=== PATIENT | male | born 1975 | race Caucasian/White ===

== ENCOUNTER → 2020-06-18 | Outpatient (CLI) | payer OTHER, SELFPAY | END | disposition home or self-care (01) | LOC: LABSPEC 15:27 | PROVIDERS: PCP Family Medicine; Visit Provider Family Medicine | DX: U07.1 COVID-19 (principal) | CPT/HCPCS: 87635; U0003 ==

== ENCOUNTER → 2020-09-26 09:08 | Outpatient (CLI) | payer OTHER, SELFPAY | PROVIDERS: PCP Family Medicine; Referring Provider Family Medicine; Visit Provider Family Medicine | DX: R53.83 Other fatigue (principal) | CPT/HCPCS: 36415; 84403 ==

== ENCOUNTER → 2020-10-10 | Outpatient (CLI) | payer OTHER, SELFPAY | END | disposition home or self-care (01) | LOC: LABSPEC 10:08 | PROVIDERS: PCP Family Medicine; Referring Provider Family Medicine; Visit Provider Family Medicine | DX: R79.89 Other specified abnormal findings of blood chemistry (principal) | CPT/HCPCS: 84403 ==

== ENCOUNTER → 2021-03-27 | Outpatient (CLI) | payer OTHER, SELFPAY ==
[2021-03-27 10:06] LABS: ALB/GLOB Ratio 1.1 RATIO (0.9-2.4); AST(SGOT) 29 U/L (15-37); Alanine Aminotransfer ALT/SGPT 54 U/L (16-61); Albumin, Serum 4.2 g/dL (3.2-5.0); Alkaline Phosphatase 54 U/L (45-117); Anion Gap 3 (5-15); BUN 17 mg/dL (7-18); BUN/Creat Ratio 18.7 RATIO (10-20); Calcium,Total 8.8 mg/dL (8.5-10.1); Chloride 104 mmol/L (98-107); Cholesterol 157 mg/dL (200); Creatinine, Serum 0.91 mg/dL (0.70-1.30); EST Glomerular Filtration Rate 96 mL/min (>60); Est Glom Filt Rate - Afr Amer 116 mL/min (>60); Globulin 3.7 g/dL (2.2-4.2); Glucose 80 mg/dL (74-106); High Density Lipoprotein 48 mg/dL; Potassium 4.4 mmol/L (3.5-5.1); Protein, Total 7.9 g/dL (6.4-8.2); Sodium Level 137 mmol/L (136-145); Triglycerides 117 mg/dL; Very Low Density Lipoprotein 23 mg/dL (5-40)
== END | disposition home or self-care (01) ==
LOC: LABSPEC 09:23
PROVIDERS: PCP Family Medicine; Visit Provider Family Medicine
DX: E78.5 Hyperlipidemia, unspecified (principal); E29.1 Testicular hypofunction
CPT/HCPCS: 80053; 80061; 84403

== ENCOUNTER 2021-09-08 12:24 | Outpatient (CLI) | payer OTHER, SELFPAY | END 2021-09-08 23:59 | disposition home or self-care (01) | LOC: LAB.FUTURE 12:24 | PROVIDERS: PCP Family Medicine; Visit Provider Family Medicine | DX: E29.1 Testicular hypofunction (principal) | CPT/HCPCS: 36415; 84403 ==

== ENCOUNTER → 2022-03-18 | Outpatient (CLI) | payer OTHER, SELFPAY ==
[2022-03-18 12:18] LABS: Anion Gap 1 (5-15); BUN 13 mg/dL (7-18); BUN/Creat Ratio 11.9 RATIO (10-20); Chloride 103 mmol/L (98-107); Creatinine, Serum 1.09 mg/dL (0.70-1.30); EST Glomerular Filtration Rate 77 mL/min (>60); Est Glom Filt Rate - Afr Amer 93 mL/min (>60); Glucose 90 mg/dL (74-106); PSA,Total - Annual Screen 1.62 ng/mL (0.00-4.00); Potassium 4.6 mmol/L (3.5-5.1); Sodium Level 136 mmol/L (136-145)
== END | disposition home or self-care (01) ==
LOC: LAB 11:43
PROVIDERS: PCP Family Medicine; Referring Provider Family Medicine; Visit Provider Family Medicine
DX: Z00.00 Encounter for general adult medical examination without abnormal findings (principal); E29.1 Testicular hypofunction
CPT/HCPCS: 80048; 84153; 84403; G0103

== ENCOUNTER → 2023-03-25 | Outpatient (CLI) | payer OTHER, SELFPAY ==
[2023-03-25 08:42] LABS: Absolute Lymphocyte Count 1.57 X10^3/uL (0.83-4.51); Basophil# 0.05 X10^3/uL; Hematocrit 46.5 % (40-54); Hemoglobin 15.2 g/dL (13.0-16.5); Lymphocyte # 1.57 X10^3/ul (0.83-4.51); Mean Corp Hgb Conc 32.7 g/dL (32-36); Mean Corpuscular Hgb 29.3 pg (27.0-32.0); Mean Corpuscular Volume 89.8 fL (80-94); Mean Platelet Vol. 11.2 fl (6.2-12.0); Monocyte# 0.36 X10^3/uL; Monocyte% 7.1 % (0-10); NRBC Flagged by Analyzer 0 % (0-5); Neutrophil # 2.97 X10^3/uL (2.7-7.7); Neutrophil % 58.7 % (47-70); Platelet Count 211 K/mm3 (150-450); RBC Distribution Width SD 42.8 fl (35.1-43.9); Red Blood Count 5.18 M/mm3 (4.6-6.2); White Blood Count 5.1 K/mm3 (4.4-11.0)
[2023-03-25 08:56] LABS: Anion Gap 3 (5-15); BUN 17 mg/dL (7-18); BUN/Creat Ratio 17.1 RATIO (10-20); Calcium,Total 8.8 mg/dL (8.5-10.1); Chloride 105 mmol/L (98-107); Cholesterol 120 mg/dL (200); Creatinine, Serum 0.99 mg/dL (0.70-1.30); EST Glomerular Filtration Rate 86 mL/min (>60); Est Glom Filt Rate - Afr Amer 104 mL/min (>60); Glucose 91 mg/dL (74-106); High Density Lipoprotein 41 mg/dL; Potassium 4.3 mmol/L (3.5-5.1); Sodium Level 137 mmol/L (136-145); Triglycerides 71 mg/dL; Very Low Density Lipoprotein 14 mg/dL (5-40)
== END | disposition home or self-care (01) ==
PROVIDERS: PCP Family Medicine; Referring Provider Family Medicine; Visit Provider Family Medicine
DX: I10 Essential (primary) hypertension (principal); E29.1 Testicular hypofunction
CPT/HCPCS: 80048; 80061; 84153; 84403; 85025; G0103

== ENCOUNTER → 2023-04-22 | Outpatient (CLI) | payer OTHER, SELFPAY ==
[2023-04-22 18:16] LABS: Free T3 2.6 pg/mL (2.18-3.98); Thyroid Stim Hormone (TSH) 1.73 uIU/mL (0.358-3.74)
== END | disposition home or self-care (01) ==
LOC: MFPLAB 15:49
PROVIDERS: PCP Family Medicine; Visit Provider Family Medicine
DX: E04.1 Nontoxic single thyroid nodule (principal)
CPT/HCPCS: 36415; 84439; 84443; 84481

== ENCOUNTER → 2023-04-28 | Outpatient (CLI) | payer OTHER, SELFPAY ==
--- NOTE | 2023-04-28 13:32 | MRI_ITS ---
Multiplanar multi sequential imaging of the pelvis. 15 cc IV Clariscan Included sequences are axial T1 spoiled gradient echo. Coronal 2-D fiesta and axial 2-D fiesta. Pre and postcontrast T1-weighted imaging. Pelvic MRA images. FINDINGS: This patient has diverticulosis involving the colon. The visualized IVC is normal as are the iliac veins and common femoral veins. Distal aorta is normal as are the common iliac arteries, internal and external iliac arteries as well as common femoral artery and proximal femoral arteries. There is no pathologic retroperitoneal adenopathy. No obvious renal filling defect is appreciated. No pathologic groin adenopathy detected. The visualized bowel is within normal limits. There is no ascites. MRI/MRV Pelvis WITH & Without Cont IMPRESSION: No obvious vascular narrowing is appreciated. Diverticulosis. Electronically Signed: Hi Romano MD at 22:29 EDT ,
== END | disposition home or self-care (01) ==
PROVIDERS: PCP Family Medicine; Referring Provider Surgery; Visit Provider Surgery
DX: I83.12 Varicose veins of left lower extremity with inflammation (principal); I82.812 Embolism and thrombosis of superficial veins of left lower extremity; I87.022 Postthrombotic syndrome with inflammation of left lower extremity
CPT/HCPCS: 72198; A9575; A4216; C8920

== ENCOUNTER → 2023-05-25 | Outpatient (CLI) | payer OTHER, SELFPAY ==
--- NOTE | 2023-05-25 13:56 | VDLE_ITS ---
Reason For Study: DVT RIGHT LEFT GSV is normal. CFV is compressible, spontaneous, phasic, CFV is compressible, spontaneous, phasic, competent, and demonstrates normal competent and demonstrates normal augmentation. augmentation. FV is compressible, spontaneous, phasic, FV is compressible, spontaneous, phasic, competent and demonstrates normal competent and demonstrates normal augmentation. augmentation. POP V is compressible, spontaneous, phasic, POP V is compressible, spontaneous, phasic, competent and demonstrates normal competent and demonstrates normal augmentation. augmentation. T/P Trunk is compressible. T/P Trunk is compressible. PTV is compressible. PTV is compressible. LT PerV is compressible. RT PerV is compressible. GSV is partially compressible with bright Procedure intraluminal echoes consistent with Chronic This is a venous duplex using B-mode, color SVT. flow and spectral Doppler. Varicose veins in calf are partially Exam performed in department. compressible with bright intraluminal echoes A preliminary report was called and/or faxed consistent with Chronic SVT. to Dr. Avendano. VL/Venous Duplex US - Jordan Extrem Interpretation Summary Deep veins of the lower extremities are bilaterally patent and compressible seg mentally. There is no evidence of deep vein thrombosis on either side. Valvular competence appears in tact within the proximal deep venous systems bilaterally. The right great saphenous vein appear s patent and compressible segmentally. Chronic venous changes are noted in the left great sa phenous vein, which is partially compressible and demonstrates bright intraluminal echogenicity. Ch ronic venous changes are also noted involving varicose veins in the left calf. Ordering Physician: Garth Avendano Referring Physician: Valdo Rodriguez Performed By: Lorena Gastelum RVT
== END | disposition home or self-care (01) ==
LOC: CVS 13:54
PROVIDERS: PCP Family Medicine; Referring Provider Surgery; Visit Provider Surgery
DX: I83.92 Asymptomatic varicose veins of left lower extremity (principal); I87.1 Compression of vein
CPT/HCPCS: 93970

== ENCOUNTER → 2023-09-12 | Outpatient (CLI) | payer BC, SELFPAY ==
--- NOTE | 2023-09-12 08:59 | VDLE_ITS ---
Reason For Study: Left leg pain Procedure LEFT This is a venous duplex using B-mode, color CFV is compressible, phasic, and INCOMPETENT flow and spectral Doppler. for greater than 1.0 second. Exam performed in department. FV is compressible, spontaneous, phasic, Patient was scanned in reverse Trendelenburg competent and demonstrates normal position during reflux assessment. augmentation. POP V is compressible, spontaneous, phasic, competent and demonstrates normal augmentation. T/P Trunk is compressible. PTV is compressible. LT PerV is compressible. SFJ is INCOMPETENT and measures 0.87 x 1.11 cm. GSV proximal thigh measures 1.15 x 1.45 cm. GSV at knee measures 1.06 x 1.37 cm. GSV INCOMPETENT throughout for greater than 0.5 seconds. GSV is partially compressible from prox thigh to knee with bright intraluminal echoes consistent with Chronic SVT. Multiple varicose vein clusters noted throughout leg that originate from GSV. Varicose veins in the calf are partially compressible with bright intraluminal echoes consistent with Chronic SVT. SSV proximal calf is competent and measures 0.32 x 0.37 cm. VL/Venous Duplex US, Unilateral Interpretation Summary Deep veins of the left lower extremity are patent and compressible segmentally. There is no evidence of left lower extremity deep vein thrombosis. Chronic superficial vein thrombus noted in left great saphenous vein and calf v aricosities. Positive for reflux in the left common femoral vein, saphenofemoral junction, g reat saphenous vein throughout Ordering Physician: Junaid Whitney Referring Physician: Valdo Rodriguez Performed By: Lorena Gastelum RVT
== END | disposition home or self-care (01) ==
PROVIDERS: PCP Family Medicine; Referring Provider Surgery Trauma Surgery; Visit Provider Surgery Trauma Surgery
DX: I83.90 Asymptomatic varicose veins of unspecified lower extremity (principal); M79.605 Pain in left leg
CPT/HCPCS: 93971

== ENCOUNTER 2023-09-29 08:32 | Day surgery (SDC) | payer BC, SELFPAY ==
[2023-09-28 08:46] VITALS: BMI 22.8
[2023-09-29 09:07] LABS: Anion Gap 1 (5-15); BUN 12 mg/dL (7-18); BUN/Creat Ratio 12.4 RATIO (10-20); Chloride 111 mmol/L (98-107); Creatinine, Serum 0.97 mg/dL (0.70-1.30); EST Glomerular Filtration Rate 88 mL/min (>60); Est Glom Filt Rate - Afr Amer 106 mL/min (>60); Estimated Creatinine Clearance 112.33 ml/min; Glucose 89 mg/dL (74-106); Potassium 4.6 mmol/L (3.5-5.1); Sodium Level 138 mmol/L (136-145)
[2023-09-29 09:20] LABS: Hematocrit 45.5 % (40-54); Hemoglobin 14.9 g/dL (13.0-16.5); Mean Corp Hgb Conc 32.7 g/dL (32-36); Mean Corpuscular Hgb 28.8 pg (27.0-32.0); Mean Corpuscular Volume 87.8 fL (80-94); Mean Platelet Vol. 10.7 fl (6.2-12.0); Platelet Count 218 K/mm3 (150-450); RBC Distribution Width CV 12.5 % (11.6-14.6); RBC Distribution Width SD 40.8 fl (35.1-43.9); Red Blood Count 5.18 M/mm3 (4.6-6.2); White Blood Count 4.7 K/mm3 (4.4-11.0)
--- NOTE | 2023-09-29 14:21 | OP.PCM_ITS ---
Report of Operation Date of Procedure: 09/29/23 Pre-Operative Diagnosis: venous insufficiency with ulceration Post-Operative Diagnosis: same Surgery/Procedure Performed:: Venogram IVC IVUS IVC, bilateral common, external iliac veins angioplasty/stent left common/external iliac veins Surgeon: Junaid Whitney Type of Anesthesia: Local and Sedation,Conscious Estimated Blood Loss (mL): 2 Description of Procedure: HPI: Patient is a 40-year-old male with extensive longstanding left lower extremity venous insufficiency with varicose veins and chronic skin changes including recent ulceration. He is found to have extensive reflux but given the severity of his skin changes and extent of his reflux he is felt to be appropriate for venogram to assess prior to any potential saphenous ablation. Description of procedure: Upon obtaining informed consent and verification correct patient procedure site patient taken to the Sales Development Manager was positioned prepped and draped in usual sterile fashion. Time was performed conscious sedation administered with Versed and fentanyl. Skin overlying the left common femoral vein was anesthetized 1% lidocaine the vessel accessed under ultrasound guidance with micropuncture needle wire. This was exchanged for micropuncture sheath routine injection ilio caval venogram was performed which revealed widened left common iliac vein with collateral branch flow attempted into the iliac more superiorly. Through the micropuncture sheath a [employer] wire advanced the micropuncture sheath exchanged out for a 8 [place]onian sheath. Through the 8 Rajan [facility] sheath and intravascular sound probe was advanced and recorded pullback performed of the IVC, left common iliac vein, left external iliac vein. This revealed 80% compression of the left common iliac vein and what appeared to be the mid to distal segment. There was difficulty determining the location of the IVC confluence given the angulation so skin overlying the right common femoral vein anesthetized 1% lidocaine the vessel accessed under ultrasound guidance with micropuncture needle wire. This was then exchanged for micropuncture sheath which injection ilio caval venogram was performed revealing satisfactory positioning. Cam[place]onian sheath a glide advantage wire was advanced the micropuncture sheath exchanged out for an 8 [place] sheath. Intravascular shunt probe was then advanced and recorded pullback performed of the IVC, right, vein, right vein. This revealed mild to moderate compression of the right external iliac vein of approximately 62%. The patient had no right lower extremity symptoms so it was felt this did not warrant intervention. We were able to more accurately more the IVC confluence revealed that the compression could be adequately treated on the left without having to extend our stent into the IVC or to double barrel. Patient was in heparinized allowed circulate 3 minutes. Through the left femoral access sheath intravascular sound probe was advanced th e area of compression marked and measurements obtained for length. A Medtronic Abre 18 x 120 was then advanced into position and deployed. This was then postdilated with a [address] angioplasty balloon. Repeat venogram confirmed satisfactory stent positioning with no extravasation dissection. Advised ultrasound probe was then readvanced recorded pullback performed of the IVC, left common, left external leg veins. This confirmed satisfactory stent positioning with good wall apposition and no residual compression. See no further need for invention wires and catheters were withdrawn. Silk sutures were placed at the puncture sites and the sheath removed after which 5 minutes manual pressure was held to obtain hemostasis. Patient was taken recovery room for bedrest prior to discharge to home. Grafts/Implants Used: Medtronic Abre [id number]
== END 2023-09-29 13:15 | disposition home or self-care (01) ==
PROVIDERS: PCP Family Medicine; Visit Provider Surgery Trauma Surgery
DX: I87.1 Compression of vein (principal); L97.829 Non-pressure chronic ulcer of other part of left lower leg with unspecified severity; I83.028 Varicose veins of left lower extremity with ulcer other part of lower leg; I83.812 Varicose veins of left lower extremity with pain; I87.2 Venous insufficiency (chronic) (peripheral); Z87.891 Personal history of nicotine dependence; Z79.01 Long term (current) use of anticoagulants; Z79.899 Other long term (current) drug therapy; I83.892 Varicose veins of left lower extremity with other complications
CPT/HCPCS: 36010; 36415; 37238; 37252; 37253; 75825; 76937; 80048; 85027; 99152; 99153; C1725; C1753; C1769; C1876; C1894; J7040; Q9967

== ENCOUNTER → 2023-10-24 | Outpatient (CLI) | payer BC, SELFPAY ==
--- NOTE | 2023-10-24 10:47 | VDLE_ITS ---
Reason For Study: Left leg pain Procedure LEFT This is a venous duplex using B-mode, color GSV is normal. flow and spectral Doppler. CFV is compressible, spontaneous, phasic, Exam performed in department. competent, and demonstrates normal A preliminary report was called and/or faxed augmentation. to RN Voicemail. FV is compressible, spontaneous, phasic, competent and demonstrates normal augmentation. POP V is compressible, spontaneous, phasic, competent and demonstrates normal augmentation. T/P Trunk is compressible. PTV is compressible. LT PerV is compressible. EIV is compressible with normal phasic venous flow. Varicose veins in the calf are partially compressible with bright intraluminal echoes consistent with Chronic SVT. VL/Venous Duplex US, Unilateral Interpretation Summary Deep veins of the left lower extremity are patent and compressible segmentally. There is no evidence of left lower extremity deep vein thrombosis. The left great saphenous vein tracy ears patent and compressible segmentally. Chronic superficial vein thrombosis noted in left calf varicosities. Ordering Physician: Quynh Dupree Referring Physician: Valdo Rodriguez Performed By: Lorena Gastelum RVT
== END | disposition home or self-care (01) ==
LOC: CVS 10:44
PROVIDERS: PCP Family Medicine; Referring Provider Physician Assistant; Visit Provider Physician Assistant
DX: I83.812 Varicose veins of left lower extremity with pain (principal); M79.605 Pain in left leg; Z86.718 Personal history of other venous thrombosis and embolism
CPT/HCPCS: 93971

== ENCOUNTER → 2023-11-08 | Outpatient (CLI) | payer BC, SELFPAY ==
--- NOTE | 2023-11-08 07:56 | AAVD_ITS ---
Reason For Study: HX LT CIV Stent Inferior Vena Cava Proximal inferior vena cava measures 2.57 x 2.95 cm. in the cross-sectional axis. Proximal inferior vena cava measures 2.15 cm. in the longitudinal axis. Mid inferior vena cava measures 1.46 x 2.10 cm. in the cross-sectional axis. Mid inferior vena cava measures 1.46 cm. in the longitudinal axis. Distal inferior vena cava measures 1.68 x 2.56 cm. in the cross-sectional axis. Distal inferior vena cava measures 1.58 cm. in the longitudinal axis. The inferior vena cava has spontaneous, phasic flow throughout. Left Common Iliac Vein Left common iliac vein measures 1.37 x 1.36 cm. in the cross-sectional axis. Left common iliac vein measures 1.40 cm. in the longitudinal axis. The left common iliac vein has spontaneous, phasic flow throughout. Lt CIV STENT noted. Right Common Iliac Vein Right common iliac vein measures 1.14 x 1.25 cm. in the cross-sectional axis. Right common iliac vein measures 1.14 cm. in the longitudinal axis. The right common iliac vein has spontaneous, phasic flow throughout. Procedure Aorta IVC Iliac vasculature or bypass grafts [id number]. The exam was diagnostic. Exam performed in department. VL/Abd Aortic/IVC Duplex scan Interpretation Summary Patent IVC and bilateral iliac veins with normal flow pattern. Left iliac stent patent. Ordering Physician: Quynh Dupree Referring Physician: Valdo Rodriguez Performed By: Elvin Wall RVT and Student
== END | disposition home or self-care (01) ==
LOC: CVS 07:50
PROVIDERS: PCP Family Medicine; Referring Provider Physician Assistant; Visit Provider Physician Assistant
DX: I83.812 Varicose veins of left lower extremity with pain (principal); Z86.718 Personal history of other venous thrombosis and embolism
CPT/HCPCS: 93978

== ENCOUNTER 2023-12-06 09:33 | Day surgery (SDC) | payer BC, SELFPAY ==
[2023-12-06] VITALS (9 sets, daily range): BP systolic 117–130; BP diastolic 81–96; PULSE 51–96; RESP 16–20; TEMP 36.3–36.9; O2SAT 94–99; BMI 22.8
[2023-12-06] MEDS: Lactated Ringers 1,000 ML 15 ML IV (09:53)
--- NOTE | 2023-12-06 12:00 | PCM.HP.STD ---
HPI - General HPI Narrative LAVINIA VILLAR, is a 48 M who presents with painful left leg varicose veins, refractory to compression. [facility] Medical History (Updated 12/06/23 @ 12:[address] Junaid Whitney MD) Anxiety Arthritis Asthma Back pain Chewing tobacco dependence DVT (deep venous thrombosis) High cholesterol History of echocardiogram History of edema Hypertension Loss of hearing Marijuana use MVP (mitral valve prolapse) Syncope Wears glasses Home Medications omega-3 fatty acids 1,000 mg capsule 1,000 mg PO BID 09/05/23 [History Last Taken Unknown] rosuvastatin 5 mg tablet 5 mg PO DAILY 09/05/23 [History Last Taken Unknown] testosterone cypionate 100 mg/mL intramuscular oil 100 mg IM .Q3W 09/05/23 [History Last Taken Unknown] rivaroxaban 20 mg tablet (Xarelto) 20 mg PO DAILY #30 tabs 09/08/23 [Rx Last Taken 09/26/23] clopidogrel 75 mg tablet (Plavix) 75 mg PO .daily #90 tabs 09/29/23 [Rx Last Taken Unknown] Allergy/AdvReac Type Severity Reaction Status Date / Time sulfamethoxazole Allergy Intermediate Rash Verified 11/17/23 10:02 [From Bactrim] trimethoprim [From Bactrim] Allergy Intermediate Rash Verified 11/17/23 10:02 Family History Other Arthritis Cancer High cholesterol Hypertension Surgical History Hx of tonsillectomy (~1982) Social History Smoking Status: Current every day smoker tobacco type: smokeless tobacco Smokeless tobacco user: chewing tobacco alcohol intake: never ROS Constitutional Constitutional: Denies chills, fever(s), frequent falls, lethargy or weakness Eyes Eyes: Denies blind spots, change in vision or loss of vision ENT HEENT: Denies bleeding gums, hoarseness or sore throat Cardiovascular Cardiovascular: Denies abdominal pain, bluish discoloration of hand/feet, chest pain with activity, claudication, cold extremities, cyanosis, dyspnea on exertion, erythema on extremities, irregular heart rhythm, leg edema, leg ulcers, numbness in extremities or weakness in extremities Respiratory/Chest Respiratory/Chest: Denies cough, excessive phlegm production, shortness of breath at rest, shortness of breath with exertion or wheezing Gastrointestinal Gastrointestinal: Denies anorexia, change in stool character, constipation, diarrhea, melena or rectal bleeding Genitourinary Genitourinary: Denies dysuria or hematuria Musculoskeletal Musculoskeletal: Denies abnormal gait Integumentary Integumentary: Reports other Details: ; Denies erythema, non-healing lesions or wounds Neurologic Neurologic: Denies abnormal speech, focal weakness, headache(s), loss of vision, numbness, paresthesias or sensory deficit Hematologic/Lymphatic Hematologic/Lymphatic: Denies easy bleeding, easy bruising or lymphadenopathy Vital Signs Vital Signs Vital Signs: 12/06/23 09:48 12/06/23 09:48 Temperature 98.5 F Temperature Source Temporal Pulse Rate 57 L Respiratory Rate 16 Respiratory Pattern Normal Blood Pressure 117/91 H Blood Pressure Mean 99 Blood Pressure Source Monitor Blood Pressure Position Semi-Fowlers Blood Pressure Location Left Arm Pulse Ox 97 Oxygen Delivery Method Room Air Weight Weight: 183 lb Body Mass Index (BMI) 22.8 Physical Exam Const alert, oriented x3, no apparent distress and healthy appearing General Appearance: cooperative; Negative for combative or lethargic Orientation / Consciousness: awake Exam Limitations: no limitations HEENT Head and Scalp: normocephalic and atraumatic Eyes EOMs intact bilaterally General Eye: normal appearance of both eyes Neck full ROM, no lymphadenopathy, thyroid normal and No no carotid bruits General: trachea midline; Negative for lymphadenopathy or tenderness Thyroid: thyroid normal Lymph Lymphatic: Negative for no lymphadenopathy noted Resp normal respiratory effort, no use of accessory muscles and clear to auscultation bilaterally Effort and Inspection: Negative for labored, stridor or audible wheezes Cardio regular rate and regular rhythm Back/Spine Cervical Spine: cervical ROM normal Extremity full ROM, normal capillary refill and no clubbing, cyanosis or edema Skin no rashes or lesions noted and no wounds Neuro oriented x3, CN's II-XII intact bilaterally, no focal motor deficits and no sensory deficits noted Psych thought process normal, cooperative, affect normal, speech normal and activity/motor behavior normal Assessment & Plan Assessment/Plan (1) Varicose veins of left lower extremity with pain: PLAN: -SFJ ligation, ablation GSV
--- NOTE | 2023-12-06 13:44 | PCM.OPRPT ---
Problems Associated Problem List Diagnoses (1) Varicose veins of left lower extremity with pain: Report of Operation Date of Procedure: 12/06/23 Pre-Operative Diagnosis: varicose veins with pain, left lower extremity Post-Operative Diagnosis: same Surgery/Procedure Performed:: left saphenofemoral junction ligation RF ablation left great saphenous vein Surgeon: Junaid Whitney Type of Anesthesia: General Estimated Blood Loss (mL): 2 Description of Procedure: HPI: Patient is a 40-year-old male with left lower extremity painful varicose veins that are refractory to compression. He has previously undergone iliac vein stenting for significant compression with only minimal improvement in his symptoms. He has reflux throughout the great saphenous vein including at the saphenofemoral junction which was significantly enlarged with multiple branches of accessory saphenous veins at the junction. He is taken now for ligation of the saphenofemoral junction and ablation of the great saphenous vein above the knee. Description of procedure: Upon obtaining informed consent and verification correct patient procedure site patient taken to Profile Saw Setup Operator he was placed under general anesthesia. He was then positioned prepped and draped in you sterile fashion time was performed. Ultrasound used to evaluate saphenous vein along its course of the thigh and into the proximal calf. The position of the saphenofemoral junction was then marked as was the site of intended access in the proximal calf. Skin was anesthetized with 1% lidocaine and transverse incision made at the saphenofemoral junction then Bovie electrocautery was dissect down through the subcutaneous tissue. Subtending retractors then put in position further dissection carried down to the saphenofemoral junction. Sharp dissection used dissect free the saphenous vein as the confluence with the common femoral vein. Side branches were then ligated with silk ties and the great saphenous vein clamped at the confluence as well as distally and then divided. Both divided ends of the great saphenous vein were then oversewn with 5-0 Prolene in running fashion. After completing the ligation clamps removed satisfactory stasis was noted. Next under ultrasound guidance the saphenous vein was accessed in the proximal calf with a micropuncture needle wire. This was then exchanged for a 7 Citizen [place] sheath for the radiofrequency ablation and the ablation probe advanced via the sheath until the probe reached the ligated section. Tumescent solution was then injected along the great saphenous vein in the ablation probe engaged across the entirety of the length of the treatment zone. After completion of the ablation the probe and sheath were withdrawn and manual pressure held after which satisfactory stasis was noted. The incision was then closed with 3-0 Vicryl, 4-0 Monocryl and Dermabond for the skin. Patient remained stable taken to recovery room for anticipated discharge home.
--- NOTE | 2023-12-06 13:46 | DCINST_ITS ---
Discharge Instructions Diet Discharge Diet: No restrictions Activity Discharge Activity: May Take a Tub Bath (14 days) May shower in (days): 2 Lifting Restrictions: do not lift >20 for 2 weeks Dressing / Incision Call your doctor if your incision/area has: Sudden Increased Bleeding, Increased Pain/ Swelling and Increased Redness Call your doctor if you observe: Fever of 101 or Higher Remove Dressing in: 2 days Cleanse incision/area with: Soap & Water Follow Up Care Test Results: Test results from this visit will be discussed in further detail at your follow- up appointment, if applicable. Discharge Plan Admission Attending Provider: Junaid Whitney Primary Care Provider: Valdo Rodriguez Discharge Orders/Prescriptions Prescriptions: New oxycodone 5 mg tablet 5 mg PO Q8H PRN (Reason: pain) 3 Days Qty: 9 0RF Continued testosterone cypionate 100 mg/mL oil 100 mg IM .Q3W rosuvastatin 5 mg tablet 5 mg PO DAILY omega-3 fatty acids 1,000 mg capsule 1,000 mg PO BID clopidogrel [Plavix] 75 mg tablet 75 mg PO .daily Qty: 90 3RF Discontinued Xarelto 20 mg tablet 20 mg PO DAILY Qty: 30 2RF Rx Instructions: must administer with evening meal Referrals / Follow Up: Valdo Rodriguez MD [Primary Care Provider] - Disposition Disposition (needs filled in before D/C Order can be placed): Home, Self Care
== END 2023-12-06 15:36 | disposition home or self-care (01) ==
LOC: SDC 09:33 → AC 09:34
PROVIDERS: PCP Family Medicine; Referring Provider Surgery Trauma Surgery; Visit Provider Surgery Trauma Surgery
DX: I83.812 Varicose veins of left lower extremity with pain (principal); I10 Essential (primary) hypertension; E78.00 Pure hypercholesterolemia, unspecified; F17.220 Nicotine dependence, chewing tobacco, uncomplicated; Z79.01 Long term (current) use of anticoagulants; Z79.02 Long term (current) use of antithrombotics/antiplatelets; Z79.899 Other long term (current) drug therapy; Z86.718 Personal history of other venous thrombosis and embolism
CPT/HCPCS: 01430; 36475; 37700; A4648; C1888; C1894; J7030; J7120; J2405

== ENCOUNTER → 2023-12-09 | Outpatient (CLI) | payer BC, SELFPAY ==
[2023-12-05 09:26] VITALS: BMI 22.5
--- NOTE | 2023-12-09 09:51 | VDLE_ITS ---
Reason For Study: LT LLE PAIN RIGHT LEFT CFV is compressible, spontaneous, phasic, CFV is compressible, spontaneous, phasic, competent and demonstrates normal competent, and demonstrates normal augmentation. augmentation. FV is compressible, spontaneous, phasic, competent and demonstrates normal augmentation. POP V is compressible, spontaneous, phasic, competent and demonstrates normal augmentation. T/P Trunk is compressible. PTV is compressible. LT PerV is compressible. GSV is NONCOMPRESSIBLE @ SFJ, S/P LIGATION 12/06/2023. VL/Venous Duplex US, Unilateral Interpretation Summary Deep veins of the left lower extremity are patent and compressible segmentally. There is no evidence of left lower extremity deep vein thrombosis. Left great saphenous vein and saphenofemoral junction occluded consistent with recent ligation/ablation. Ordering Physician: Quynh Dupree Referring Physician: Valdo Rodriguez Performed By: Elizabeth Lemus, TAMRA, RVT
== END | disposition home or self-care (01) ==
LOC: CVS 09:45
PROVIDERS: PCP Family Medicine; Referring Provider Physician Assistant; Visit Provider Physician Assistant
DX: I83.812 Varicose veins of left lower extremity with pain (principal)
CPT/HCPCS: 93971

== ENCOUNTER → 2024-03-23 | Outpatient (CLI) | payer BC, SELFPAY ==
--- NOTE | 2024-03-23 08:06 | AAVD_ITS ---
Reason For Study: S/P Lt iliac vein stent Inferior Vena Cava Proximal inferior vena cava measures 1.94 x 3.21 cm. in the cross-sectional axis. Proximal inferior vena cava measures 2.26 cm. in the longitudinal axis. Mid inferior vena cava measures 1.60 x 2.18 cm. in the cross-sectional axis. Mid inferior vena cava measures 1.73 cm. in the longitudinal axis. Distal inferior vena cava measures 1.56 x 2.95 cm. in the cross-sectional axis. Distal inferior vena cava measures 1.82 cm. in the longitudinal axis. The inferior vena cava has spontaneous, phasic flow throughout. Left Common Iliac Vein Left common iliac vein measures 1.45 x 1.41 cm. in the cross-sectional axis. Left common iliac vein measures 1.52 cm. in the longitudinal axis. The left common iliac vein has spontaneous, phasic flow throughout. Lt CIV STENT noted. Right Common Iliac Vein Right common iliac vein measures 1.00 x 1.93 cm. in the cross-sectional axis. Right common iliac vein measures 1.12 cm. in the longitudinal axis. The right common iliac vein has spontaneous, phasic flow throughout. VL/Abd Aortic/IVC Duplex scan Interpretation Summary Patent inferior vena cava and right iliac vein with normal venous flow. Patent left iliac vein stent with normal venous flow. Ordering Physician: Quynh Dupree Referring Physician: Valdo Rodriguez Performed By: Lorena Gastelum RVT
== END | disposition home or self-care (01) ==
LOC: CVS 07:58
PROVIDERS: PCP Family Medicine; Referring Provider Physician Assistant; Visit Provider Physician Assistant
DX: Z48.812 Encounter for surgical aftercare following surgery on the circulatory system (principal); I87.1 Compression of vein; Z86.718 Personal history of other venous thrombosis and embolism
CPT/HCPCS: 93978

== ENCOUNTER → 2024-04-04 | Outpatient (CLI) | payer BC, SELFPAY ==
[2024-04-04 12:18] LABS: Absolute Lymphocyte Count 0.79 X10^3/uL (0.83-4.51); Absolute Neutrophil Count 8.4 X10^3/uL (2.0-7.7); Basophil# 0.07 X10^3/uL; Basophil% 0.7 % (0-1); Eosinophil# 0.09 X10^3/uL; Eosinophils% 0.9 % (0-5); Hematocrit 46.4 % (40-54); Hemoglobin 15.2 g/dL (13.0-16.5); Lymphocyte # 0.79 X10^3/ul (0.83-4.51); Lymphocyte % 7.8 % (19-41); Mean Corp Hgb Conc 32.8 g/dL (32-36); Mean Corpuscular Hgb 29.2 pg (27.0-32.0); Mean Corpuscular Volume 89.1 fL (80-94); Monocyte# 0.66 X10^3/uL; Monocyte% 6.5 % (0-10); NRBC Flagged by Analyzer 0 % (0-5); Neutrophil # 8.44 X10^3/uL (2.7-7.7); Neutrophil % 83.8 % (47-70); Platelet Count 203 K/mm3 (150-450); RBC Distribution Width SD 42.4 fl (35.1-43.9); Red Blood Count 5.21 M/mm3 (4.6-6.2); White Blood Count 10.1 K/mm3 (4.4-11.0)
[2024-04-04 12:59] LABS: Anion Gap 4 (5-15); BUN 16 mg/dL (7-18); BUN/Creat Ratio 16.9 RATIO (10-20); Calcium,Total 9.4 mg/dL (8.5-10.1); Chloride 102 mmol/L (98-107); Cholesterol 150 mg/dL (200); Creatinine, Serum 0.95 mg/dL (0.70-1.30); EST Glomerular Filtration Rate 90 mL/min (>60); Est Glom Filt Rate - Afr Amer 109 mL/min (>60); Glucose 92 mg/dL (74-106); High Density Lipoprotein 59 mg/dL; PSA,Total - Annual Screen 0.98 ng/mL (0.00-4.00); Potassium 4.8 mmol/L (3.5-5.1); Sodium Level 134 mmol/L (136-145); Triglycerides 101 mg/dL; Very Low Density Lipoprotein 20 mg/dL (5-40)
[2024-04-09 15:08] LABS: Testosterone, % Free 5.16 % (1.50-4.20); Testosterone, Free 53.66 ng/dL (5.00-21.00); Testosterone, Total 1040 ng/dL (264-916)
== END | disposition home or self-care (01) ==
LOC: MFPLAB 10:01
PROVIDERS: PCP Family Medicine; Visit Provider Family Medicine
DX: Z00.00 Encounter for general adult medical examination without abnormal findings (principal); E29.1 Testicular hypofunction
CPT/HCPCS: 36415; 80048; 80061; 84153; 84402; 84403; 85025; G0103

== ENCOUNTER → 2024-05-16 | Outpatient (CLI) | payer BC, SELFPAY ==
--- NOTE | 2024-05-16 10:12 | RAD_ITS ---
STUDY: X-RAY - RIGHT KNEE REASON FOR EXAM: Male, 48 years old. KNEE PAIN TECHNIQUE: 4 views of the right knee. COMPARISON: None. FINDINGS: Normal visualized distal femur. Normal visualized proximal tibia and fibula. Normal proximal tibiofibular articulation. There is no demonstrated fracture. There is moderate degenerative arthrosis of the medial femorotibial compartment with moderate joint space narrowing. There is mild degenerative arthrosis of the lateral femorotibial compartment. There is moderate degenerative arthrosis of the patellofemoral articulation. There is a moderate volume joint effusion. The soft tissue structures are unremarkable. RAD/Knee 4 or More Views IMPRESSION: Tricompartment degenerative arthrosis of the right knee, most pronounced in the patellofemoral and medial femoral tibial compartments. Moderate joint effusion. No demonstrated fracture. Electronically Signed: Asad Suarez MD at 14:23 EDT ,
== END | disposition home or self-care (01) ==
LOC: MTRAD 10:05
PROVIDERS: PCP Family Medicine; Referring Provider Family Medicine; Visit Provider Family Medicine
DX: M25.561 Pain in right knee (principal)
CPT/HCPCS: 73564

== ENCOUNTER → 2024-10-01 | Outpatient (CLI) | payer BC, SELFPAY ==
--- NOTE | 2024-10-01 08:00 | AAVD_ITS ---
Reason For Study Reason For Study: S/P L Iliac V Stent Inferior Vena Cava Proximal inferior vena cava measures 1.81x1.83 cm. in the cross-sectional axis. Proximal inferior vena cava measures 1.85 cm. in the longitudinal axis. Mid inferior vena cava measures 1.70x1.89 cm. in the cross-sectional axis. Mid inferior vena cava measures 1.68 cm. in the longitudinal axis. Distal inferior vena cava measures 1.57x1.81 cm. in the cross-sectional axis. Distal inferior vena cava measures 1.65 cm. in the longitudinal axis. The inferior vena cava has spontaneous, phasic flow throughout. Left Common Iliac Vein Left common iliac vein measures 1.57x1.48 cm. in the cross-sectional axis. Left common iliac vein measures 1.49 cm. in the longitudinal axis. The left common iliac vein has spontaneous, phasic flow throughout. Stent noted in left common iliac vein. Right Common Iliac Vein Right common iliac vein measures 1.21x1.04 cm. in the cross-sectional axis. Right common iliac vein measures 0.80 cm. in the longitudinal axis. The right common iliac vein has spontaneous, phasic flow throughout. Procedure Aorta IVC Iliac vasculature or bypass grafts [id number]. Exam performed in department. VL/Abd Aortic/IVC Duplex scan Interpretation Summary Inferior vena cava and right iliac vein patent with normal venous flow pattern. Left iliac vein stent patent with normal venous flow pattern. Ordering Physician: Quynh Dupree Referring Physician: Valdo Rodriguez Performed By: Elvin Wall RVT and Student
== END | disposition home or self-care (01) ==
LOC: CVS 07:59
PROVIDERS: PCP Family Medicine; Referring Provider Physician Assistant; Visit Provider Physician Assistant
DX: Z48.812 Encounter for surgical aftercare following surgery on the circulatory system (principal); I87.1 Compression of vein; Z95.820 Peripheral vascular angioplasty status with implants and grafts
CPT/HCPCS: 93978

== ENCOUNTER → 2024-11-28 | Outpatient (CLI) | payer BC, SELFPAY ==
--- NOTE | 2024-11-28 08:06 | VDLE_ITS ---
Reason For Study Reason For Study: LLE Pain RIGHT LEFT FV is compressible, spontaneous, phasic, competent CFV is compressible, spontaneous, phasic, competent, and demonstrates normal augmentation. and demonstrates normal augmentation. Procedure FV is compressible, phasic, and INCOMPETENT for This is a venous duplex using B-mode, color flow and greater than 1.0 second. spectral Doppler. POP V is compressible, spontaneous, phasic, competent Exam performed in department. and demonstrates normal augmentation. The exam was diagnostic. T/P Trunk is compressible. PTV is compressible. LT PerV is compressible. GSV is Dilated and NONCOMPRESSIBLE with compressible portions intermittently visualized. ASV branch appears to emerge from SFJ and feeds incompetent ASV at mid thigh. Two perforating vessels noted at mid and distal calf. Dilated and NONCOMPRESSIBLE ASV / Varicosities noted in calf. Pt has HX of SFJ ligation. ASV mid thigh is INCOMPETENT for greater than 0.5 seconds and measures 0.29 x 0.37 cm. Perfoating vessel mid calf is INCOMPETENT for greater than 0.5 seconds and measures 0.37 cm. Perforating Vessel distal calf is INCOMPETENT for greater than 0.5 seconds and measures 0.27 cm. SSV mid calf is INCOMPETENT for greater than 0.5 seconds and measures 0.27 x 0.29 cm. VL/Venous Duplex US, Unilateral Interpretation Summary Acute superficial vein thrombosis noted in left calf accessory saphenous vein, associated product responsibility liaison veins, and segments of the great saphenous vein. Deep veins of the left lower extremity are patent and compressible segmentally. There is no evidence of left lower extremity deep vein thrombosis. Positive for reflux in the left femoral vein, accessory saphenous vein in the t high, small saphenous vein, and calf perforators. Ordering Physician: Quynh Dupree Referring Physician: Valdo Rodriguez Performed By: Elvin Wall RVT
== END | disposition home or self-care (01) ==
LOC: CVS 08:05
PROVIDERS: PCP Family Medicine; Referring Provider Physician Assistant; Visit Provider Physician Assistant
DX: I83.812 Varicose veins of left lower extremity with pain (principal); I87.1 Compression of vein
CPT/HCPCS: 93971

== ENCOUNTER → 2025-01-18 | Outpatient (CLI) | payer BC, SELFPAY ==
[2025-01-22 06:08] LABS: QNTFERON TB Mitogen Value > 10.00 IU/mL (.); QNTFERON TB Nil Value 0.05 IU/mL (.); QNTFERON TB1+ Ag Value 0.08 IU/mL (.); QNTFERON TB2+ Ag Value 0.11 IU/mL (.); QNTIFERON TB Positive Criteria Negative (Negative)
== END | disposition home or self-care (01) ==
LOC: MTLAB 16:35
PROVIDERS: PCP Family Medicine; Referring Provider Dermatology Pediatric Dermatology; Visit Provider Dermatology Pediatric Dermatology
DX: L40.0 Psoriasis vulgaris (principal)
CPT/HCPCS: 36415; 86480

== ENCOUNTER 2025-02-07 07:34 | Day surgery (SDC) | payer BC, SELFPAY ==
[2025-02-06 08:12] VITALS: BMI 25.9
--- OUTSIDE RECORDS SUMMARY | 2025-02-07 07:55 | XMS RPT_ITS | CCD ---
Author Organization [facility] Care Team Providers Care Information [employer] Name Role Phone VALDO FUENTES Primary Care Unavailable PAMELA MARTINEZ Attending Unavailable Dr. Valdo Fuentes Primary Care Provider [phone] Dr. Valdo Fuentes Referring Provider Dr. Junaid Whitney Attending Provider [phone] Junaid Whitney Referring Provider 1([facility])[phone] Valdo Fuentes Primary Care Provider Dr. Valdo Fuentes Referring Provider Dr. Junaid Whitney Attending Provider 1([facility])[phone] Junaid Whitney Referring Provider 1([facility])[phone] Junaid Whitney Other Provider JOSE Dupree Attending Provider [phone] JOSE Dupree Referring Provider 1([facility])-[phone] Valdo Fuentes MD Primary Care Provider 1([facility] )[phone] Assessment, Health Risk Attending Provider Unava ilable Joon RICH, Quynh Attending Provider [phone] Quynh Whittington Referring Provider [phone] Junaid Whitney MD Attending Provider [phone] Dr. Valdo Fuentes MD Primary Care Provider Dr. Valdo Fuentes MD Referring Provider [phone] Amrita HERNANDEZ, Dr. Ross Attending Provider Amrita HERNANDEZ, Dr. Ross Referring Provider Quynh Dupree Referring Unavailable Valdo Fuentes Primary Care Unavailable Dupree, Quynh Attending Unavailable Assessment, Health Risk Attending Unavaila ble Fuentes, Valdo Primary Care Unavailable Devonte, Junaid Attending Unavailable Fuentes, Valdo Primary Care Unavailable Devonte, Junaid Referring Unavailable Devonte, Junaid Attending Unavailable Fuentes, Valdo Primary Care Unavailable Assessment, Health Risk Attending Unavaila ble Fuentes, Valdo Primary Care Unavailable Dupree, Quynh Referring Unavailable Fuentes, Valdo Primary Care Unavailable Dupree, Quynh Attending Unavailable Mena, Junaid Attending Unavailable Dupree, Quynh Referring Unavailable Fuentes, Valdo Primary Care Unavailable Fuentes, Valdo Primary Care Unavailable Devonte, Junaid Attending Unavailable Dupree, Quynh Referring Unavailable Mena, Junaid Attending Unavailable Dupree, Quynh Referring Unavailable Fuentes, Valdo Primary Care Unavailable Fuentes, Valdo Referring Unavailable Devonte, Junaid Attending Unavailable Fuentes, Valdo Primary Care Unavailable Fuentes, Valdo Referring Unavailable Fuentes, Valdo Primary Care Unavailable Dupree, Quynh Attending Unavailable Amrita, Vandana Referring Unavailable Amrita, Vandana Attending Unavailable Fuentes, Valdo Primary Care Unavailable Fuentes, Valdo Primary Care Unavailable Dupree, Quynh Attending Unavailable Dupree, Quynh Referring Unavailable Fuentes, Valdo Attending Unavailable Fuentes, Valdo Primary Care Unavailable Fuentes, Valdo Referring Unavailable Fuentes, Valdo Attending Unavailable Fuentes, Valdo Primary Care Unavailable Allergies Allergy Classification Reported Allergen(s) Allergy Type Date of Onset Reaction(s) Facility (1 source) Sulfamethoxazole / Trimethoprim; Translations: [SULFAMETHOXAZOLE-TR IMETHOPRIM] Drug Allergy [address] [place] [address] Repository (7 sources) Sulfamethoxazole Drug Allergy 4 [facility] (7 sources) Trimethoprim Drug Allergy 4 [facility] (1 source) Sulfamethoxazole Drug Allergy 5 [facility] Repository (1 source) Trimethoprim Drug Allergy 5 [facility] Repository Medications Current Medications Medication Drug Class(es) Dates Sig (Normalized) Sig (Original) clopidogrel 75 mg oral tablet (8 sources) P2Y12 Platelet Inhibitor Start: 09-29-2023 End: 10-05-2024 take 1 tablet by mouth once daily Clopidogrel (Plavix) 75 mg tablet Active 75 mg PO .daily 90 October 05, 2024 10:15am FLUoxetine 20 mg oral capsule (1 source) Serotonin Reuptake Inhibitor Start: 10-23-2024 take 2 capsules by mouth once daily Fluoxetine 20 mg capsule Active 40 mg PO daily October 23, 2024 12:00am False Pass-3 Fatty Acids (5 sources) Start: 09-05-2023 take 1000 mg by mouth twice daily False Pass-3 Fatty Acids Active 1000 MG PO TWICE A DAY September 05, 2023 1:00am Start: 09-05-2023 take 1000 mg by mouth once dutch ly False Pass-3 Fatty Acids Active 1000 MG PO DAILY September 05, 2023 12:00am rosuvastatin calcium 5 mg oral tablet (7 sources) HMG-CoA Reductase Inhibitor Start: 09-05-2023 take 1 tablet by mouth once daily Rosuvastatin 5 mg tablet Active 5 mg PO DAILY September 05, 2023 1:00am testosterone cypionate 100 mg/ml injectable solution (7 sources) Androgen Start: 09-05-2023 Testosterone Cypionate 100 mg/mL oil Active 100 mg IM .Q3W September 05, 2023 1:00am Start: 09-05-2023 Testosterone C ypionate Active 100 MG IM .Q3W September 05, 2023 1:00am Completed/Discontinued Medications Medication Drug Class(es) Dates Sig (Normalized) Sig (Original) amphetamine aspartate 5 mg / amphetamine sulfate 5 mg / dextroamphetamine saccharate 5 mg / dextroamphetamine sulfate 5 mg oral tablet (1 source) Central Nervous System Stimulant Start: 12-20-2024 take 1 tablet by mouth once daily Dextroamphetamine- Amphetamine (Adderall) 20 mg tablet Discontinued 20 mg PO daily December 20, 2024 12:00am False Pass-3 Fatty Acids 1,000 mg capsule (2 sources) Start: 09-05-2023 End: 10-23-2024 take 1 capsule by mouth twice daily False Pass-3 Fatty Acids 1,000 mg capsule Discontinued 1000 mg PO TWICE A DAY September 05, 2023 1:00am October 23, 2024 1:56pm Start: 09-05-2023 take 1 capsule by [facility] twice daily False Pass-3 Fatty Acids 1,000 mg capsule Active 1000 mg PO TWICE A DAY September 05, 2023 1:00am oxyCODONE hydrochloride 5 mg oral tablet (3 sources) Opioid Agonist Start: 12-06-2023 End: 10-23-2024 take 1 tablet by mouth every eight hours as needed for pain Oxycodone 5 mg tablet Discontinued 5 mg PO Q8H as needed for pain 9 3 December 06, 2023 October 23, 2024 1:56pm rivaroxaban 20 mg oral tablet (11 sources) Factor Xa Inhibitor Start: 12-20-2023 End: 10-05-2024 take 1 tablet by mouth once daily Rivaroxaban (Xarelto) 20 mg tablet Discontinued 20 mg PO DAILY December 20, 2023 12:00am October 05, 2024 10:15am Start: 09-05-2023 End: 12-06-2023 take 1 tablet by mouth once daily at dinner Rivaroxaban (Xarelto) 20 mg tablet Discontinued 20 mg PO DAILY September 08, 2023 1:00am December 06, 2023 1:58pm must administer with evening meal Problems Active Problems Problem Classification Problem Date Documented Da te Episodic/Chronic Other aftercare (4 sources) Surgical follow-up; Translations: [Encounter for surgical aftercare following surgery on the circulatory system] 11-11-2023 Episodic Other diseases of veins and lymphatics (5 sources) Occlusion of iliac vein; Translations: [Compression of vein] 11-11-2023 Episodic Other diseases of veins and lymphatics (1 source) Venous insufficiency (chronic) (peripheral); Translations: [Venous insufficiency (chronic) (peripheral)] Onset: 01-29-2025 Episodic Other inflammatory condition of skin (1 source) Psoriasis vulgaris; Translations: [Psoriasis vulgaris] Onset: 01-24-2025 Chronic Other lower respiratory disease (9 sources) Cough; Translations: [Cough] 03-10-2021 Episodic Phlebitis; thrombophlebitis and thromboembolism (15 sources) Deep venous thrombosis; Translations: [Acute embolism and thrombosis of unspecified deep veins of unspecified lower extremity] 09-05-2023 Episodic Syncope (1 source) Syncope and collapse; Translations: [Syncope and collapse] Onset: 04-16-2023 Episodic Thyroid disorders (1 source) Nontoxic single thyroid nodule; Translations: [Thyroid nodule] Onset: 04-16-2023 Chronic Varicose veins of lower extremity (20 sources) Varicose veins of lower extremity; Translations: [Asymptomatic varicose veins of unspecified lower extremity] Onset: 12-04-2024 09-05-2023 Episodic Past or Other Problems Problem Classification Problem Date Documented Da te Episodic/Chronic Other aftercare (1 source) Encounter for surgical aftercare following surgery on the circulatory system; Translations: [Encounter for surgical aftercare following surgery on the circulatory system] Onset: 10-10-2024 Episodic Other diseases of veins and lymphatics (1 source) Compression of vein; Translations: [Compression of vein] Onset: 04-10-2024 Episodic Other non-traumatic joint disorders (1 source) Pain in right knee; Translations: [Pain in right knee] Onset: 06-11-2024 Episodic Results Test Name Value Interpretation Reference Range Facility Quantiferon TB-Gold+on 01-22 QFT MITOGEN VARSHA > 10.00 Normal . [facility] Comment on above: Performed By: #### L 3400.8000 #### [facility] [address] [place], [place], [id number] ([phone] QFT NIL VALUE 0.05 IU/mL Normal . [facility] Comment on above: Performed By: #### L [id number] #### [facility] [address] [place], [address] (852) QFT TB GOLD+ Comment Normal . [facility] Comment on above: Result Comment: Jaren tiFERON-TB Gold Plus is a qualitative indirect test for M tuberculosis infection (including disease) and is intended for use in conjunction with risk assessment, radiography, and other medical and diagnostic evaluations. The QuantiFERON-TB Gold Plus result is determined by subtracting the Nil value from either TB antigen (Ag) value. The Mitogen tube serves as a control for the test. Performed By: #### L [id number] #### [facility] [address] [place], [place], [id number] QFT TB POS CRIT Negative Normal Negative [facility] Comment on above: Result Comment: No r esponse to M tuberculosis antigens detected. Infection with M tuberculosis is unlikely, but high risk individuals should be considered for additional testing (ATS/IDSA/CDC Clinical Practice Guidelines, 2017). The reference range is an Antigen minus Nil result of <0.35 IU/mL. The specimen received for QuantiFERON testing was incubated by the ordering institution. Specific procedures outlined in our Directory of Services and in the package insert for the QuantiFERON Gold (In Tube) test must be followed to enable for proper stimulation of cells for the production of interferon gamma. Chemiluminescence immunoassay methodology Performed at: [facility] [id number] Bioinformatician: Reji Rahman PhD, Phone: [phone] Performed By: #### L [id number] #### [facility] [address] [place], [place], [id number] QFT TB1+ AG VARSHA 0.08 IU/mL Normal . [facility] Comment on above: Performed By: #### L [id number] #### [facility] [address] [place], [address] QFT TB2+ AG VARSHA 0.11 IU/mL Normal . [facility] Comment on above: Performed By: #### L [id number] #### [facility] [address] [place], [address] Qualitative QuantiFERON-TB g old in tube testOrdered By: Vandana Crowe on 01-18-2025 M. tuberculosis tuberculin stim IFN-g Ql (Bld) 0.08 IU/mL . [facility] MR/BMS.[place] 12-20-2024 MR/BMS.[facility] [address] [place], [place] [address] OFFICE VISIT Date of Service: 12/20/24 MR#: [id number] Acct: [id number] Name: LAVINIA URIOSTEGUI Jr. Rep #: [id number] : 1975 Provider: Dr. Junaid Whitney MD Age/Sex: 49/M Location: [facility] [place] Status: Signed Intake Vital Signs 12/06/23 09:48 12/20/24 15:34 Height 6 ft 3 in Weight: 207 lb BP 152/94 H Blood Pressure Location Rt brachial Position Sitting Respiration 18 Pulse 88 Pulse Source Monitor Temp 98.6 F Temp Source Temporal Pulse Oximetry (%) 97 Oxygen Delivery Method room air Intake Visit Reasons: Discuss Varicose Vein Treatment options Is patient in pain?: Yes Allergies sulfamethoxazole (From Bactrim) Allergy (Intermediate, Verified 12/20/24 15:33) Rash trimethoprim (From Bactrim) Allergy (Intermediate, Verified 12/20/24 15:33) Rash Medications ???Medication ???Instructions ???Recorded ???Confirmed ???Type rosuvastatin 5 mg tablet 5 mg PO DAILY 09/05/23 12/20/24 Hi story testosterone cypionate 100 mg/mL 100 mg IM .Q3W 09/05/23 12/20/24 H istory intramuscular oil clopidogrel 75 mg tablet (Plavix) 75 mg PO .daily #90 tabs 10/05/24 12/20/24 Rx fluoxetine 20 mg capsule 40 mg PO QDAY 10/23/24 12/20/24 Hi story dextroamphetamine-amphetami ne 20 20 mg PO QDAY 12/20/24 12/20/24 Hi story mg tablet (Adderall) Have you fallen in the past year?: No PFSH Medical History Loss of hearing Wears glasses Anxiety Marijuana use Arthritis High cholesterol DVT (deep venous thrombosis) Back pain Syncope Asthma Chewing tobacco dependence History of edema Hypertension History of echocardiogram MVP (mitral valve prolapse) Surgical History Hx of tonsillectomy ( 1982) Family History Other Arthritis Cancer High cholesterol Hypertension Social History Smoking Status: Former smoker how long ago did patient quit smokin years ago, chewing tobacco 1 month ago alcohol intake: never HPI HPI HPI: LAVINIA URIOSTEGUI, is a 49 M who presents to the office today for follow up of LLE DVT, recurrent SVT, skin ulceration and painful varicose veins. He is s/p left iliac vein stent and left SFJ ligation/GSV chemical ablation. He has continued to have pain primarily in calf varicose veins and mid thigh varicose veins, though overall leg improved with procedures. He has had new duplex to assess status of of veins and their reflux. ROS General General: No weight change, appetite, fatigue, colon cancer, breast cancer or weakness HEENT HEENT: No difficulty swallowing, eye injury, eye surgery, swollen glands or hoarseness Endo Endocrine: No thyroid disease, diabetes mellitus, thyroid cancer, Hair loss, heat intolerance or cold intolerance Skin Skin: No rash or changing moles Musc Musculoskeletal: Yes arthritis and joint pain; No back problems, rheumatoid arthritis or gout Cardio Cardiovascular: Yes shortness of breath with exertion; No murmur, pacemaker, heart disease, atrial fibrillation, high blood pressure, heart attack, heart stent, palpitations or chest pain Psych Psychiatric: Yes depression and anxiety; No hearing voices Resp Respiratory: Yes shortness of breath, No sleep apnea, No cough, No COPD, Yes asthma, No emphysema and No wheezing Gastro Gastrointestinal: No abdominal pain, No nausea or vomiting, No diarrhea, No constipation, No blood in stool, No acid reflux, No hemorrhoids, No ulcers, No gallbladder problem and No black,tarry stools Bud Hematologic: Yes blood thinners, No blood disorders, No bleeding, No anemia and No blood clots Neuro Neurologic: No system reviewed and no additional complaints, except as documented, No as per HPI, No abnormal gait, No abnormal hearing, No abnormal movements, No abnormal speech, No behavioral changes, No burning sensations, No confusion, No convulsions, No disequilibrium, No dizziness, No localized weakness, No frequent falls, No headache(s), No lack of coordination, No loss of vision, No memory loss, No numbness, No other visual disturbances, Yes radicular pain, Yes restless legs, No sensory deficit, No syncope, No tingling, No tremor(s), No weakness and No other Exam Const General: cooperative, healthy appearing, comfortable, no acute distress and well developed Nutritional Appearance: well nourished Orientation: alert, awake and oriented x3 HENWY Head: normocephalic and atraumatic Ears: hearing grossly normal bilaterally Nose: external nose normal Eyes General: appearance normal, both eyes and (more content not included)... Normal [facility] Venous Duplex US, Unilateral on 11-28-2024 Venous Duplex US, Unilateral [facility] [address] [place] [address] Venous Duplex US, Unilateral 11/28/24 0813 MR#: [id number] Acct: [id number] Name: LAVINIA URIOSTEGUI Jr. Rep #: [id number] : 1975 49 From: Junaid Whitney MD Attending Dr: JOSE Higgins Status: REG CLI Ordering Dr: Quynh Dupree Date: 11/28/24 Location: [facility] Sex: M C Admitted: Reason For Study Reason For Study: LLE Pain RIGHT LEFT FV is compressible, spontaneous, phasic, competent CFV is compressible, spontaneous, phasic, competent, and demonstrates normal augmentation. and demonstrates normal augmentation. Procedure FV is compressible, phasic, and INCOMPETENT for This is a venous duplex using B-mode, color flow and greater than 1.0 second. spectral Doppler. POP V is compressible, spontaneous, phasic, competent Exam performed in department. and demonstrates normal augmentation. The exam was diagnostic. T/P Trunk is compressible. PTV is compressible. LT PerV is compressible. GSV is Dilated and NONCOMPRESSIBLE with compressible portions intermittently visualized. ASV branch appears to emerge from SFJ and feeds incompetent ASV at mid thigh. Two perforating vessels noted at mid and distal calf. Dilated and NONCOMPRESSIBLE ASV / Varicosities noted in calf. Pt has HX of SFJ ligation. ASV mid thigh is INCOMPETENT for greater than 0.5 seconds and measures 0.29 x 0.37 cm. Perfoating vessel mid calf is INCOMPETENT for greater than 0.5 seconds and measures 0.37 cm. Perforating Vessel distal calf is INCOMPETENT for greater than 0.5 seconds and measures 0.27 cm. SSV mid calf is INCOMPETENT for greater than 0.5 seconds and measures 0.27 x 0.29 cm. VL/Venous Duplex US, Unilateral Interpretation Summary Acute superficial vein thrombosis noted in left calf accessory saphenous vein, associated bill board poster veins, and segments of the great saphenous vein. Deep veins of the left lower extremity are patent and compressible segmentally. There is no evidence of left lower extremity deep vein thrombosis. Positive for reflux in the left femoral vein, accessory saphenous vein in the thigh, small saphenous vein, and calf perforators. Ordering Physician: Quynh Dupree Referring Physician: Valdo Fuentes Performed By: Elvin Wall, Marixa 11/28/24 1419 Date Junaid Whitney MD CC: JOSE Higgins; Dr. Valdo Fuentes MD Date Dictated: 11/28/24 08 Date Transcribed: 11/28/24 141 Foundry Metallurgist: Signed [facility] MR/BMS.Son 10-23-2024 MR/BMS.[facility] [address] [place] [address] OFFICE VISIT Date of Service: 10/23/24 MR#: [id number] Acct: [id number] Name: LAVINIA URIOSTEGUI Jr. Rep #: [id number] : 1975 Provider: JOSE Higgins Age/Sex: 49/M Location: [facility] Status: Signed Intake Vital Signs 12/06/23 09:48 10/23/24 13:53 Height 6 ft 3 in Weight: 203 lb BP 140/88 H Blood Pressure Location Rt brachial Position Sitting Respiration 16 Pulse 71 Pulse Source Monitor Temp 98.9 F Temp Source Temporal Pulse Oximetry (%) 96 Oxygen Delivery Method room air Intake Visit Reasons: 1 Y FU Is patient in pain?: No Allergies sulfamethoxazole (From Bactrim) Allergy (Intermediate, Verified 10/23/24 13:55) Rash trimethoprim (From Bactrim) Allergy (Intermediate, Verified 10/23/24 13:55) Rash Medications ???Medication ???Instructions ???Recorded ???Confirmed ???Type rosuvastatin 5 mg tablet 5 mg PO DAILY 09/05/23 10/23/24 Hi story testosterone cypionate 100 mg/mL 100 mg IM .Q3W 09/05/23 10/23/24 H istory intramuscular oil clopidogrel 75 mg tablet (Plavix) 75 mg PO .daily #90 tabs 10/05/24 10/23/24 Rx bupropion HCl 150 mg 24 hr tablet, 150 mg PO QAM 10/23/24 10/23/24 History extended release fluoxetine 20 mg capsule 60 mg PO QDAY 10/23/24 10/23/24 Hi story Have you fallen in the past year?: No PFSH Medical History Loss of hearing Wears glasses Anxiety Marijuana use Arthritis High cholesterol DVT (deep venous thrombosis) Back pain Syncope Asthma Chewing tobacco dependence History of edema Hypertension History of echocardiogram MVP (mitral valve prolapse) Surgical History Hx of tonsillectomy ( 1982) Family History Other Arthritis Cancer High cholesterol Hypertension Social History (Updated 10/23/24 @ 13:52 by Rowena Hong MA) Smoking Status: Former smoker how long ago did patient quit smokin years ago, chewing tobacco 1 month ago alcohol intake: never HPI HPI HPI: LAVINIA URIOSTEGUI, is a 49 M who presents to the office today for annual follow-up of his venous insufficiency and iliac vein stenosis which is s/p L iliac vein stenting on 09/29/23 and L GSV RF ablation 12/06/23. Most recent duplex was 10/01/24 demonstrating patent L iliac vein stent with normal flow pattern. He continues to take ASA and Plavix without adverse bleeding or other side effects. He has some symptomatic persistent varicosities in his LLE. continued discomfort and tenderness to touch about mid-medial thigh in the area of prior ablation. He also has had continued aching and discomfort along his distal medial calf/ankle varicosities. He has had some intermittent mild LLE edema. He has not had any acutely increased swelling, redness, or excess warmth through his lower extremities. He does continue to wear compression stockings but this has not improved his persistently symptomatic varicosities. ROS General General: No weight change, appetite, fatigue, colon cancer, breast cancer or weakness HEENT HEENT: No difficulty swallowing, eye injury, eye surgery, swollen glands or hoarseness Endo Endocrine: No thyroid disease, diabetes mellitus, thyroid cancer, Hair loss, heat intolerance or cold intolerance Skin Skin: No rash or changing moles Musc Musculoskeletal: Yes arthritis; No back problems, rheumatoid arthritis, gout or joint pain Cardio Cardiovascular: No murmur, pacemaker, heart disease, atrial fibrillation, high blood pressure, heart attack, heart stent, palpitations, shortness of breath with exertion or chest pain Psych Psychiatric: Yes depression and anxiety; No hearing voices Resp Respiratory: Yes shortness of breath, No sleep apnea, No cough, No COPD, Yes asthma, No emphysema and No wheezing Gastro Gastrointestinal: No abdominal pain, No nausea or vomiting, No diarrhea, No constipation, No blood in stool, No acid reflux, Yes hemorrhoids, No ulcers, No gallbladder problem and No black,tarry stools Bud Hematologic: Yes blood thinners, No blood disorders, No bleeding, No anemia and No blood clots Neuro Neurologic: No system reviewed and no additional complaints, except as documented, No as per HPI, No abnormal gait, No abnormal hearing, No abnormal movements, No abnormal speech, No behavioral changes, No burning sensations, No confusion, No convulsions, No disequilibrium, No dizziness, No localized weakness, No frequent falls, No headache(s), No lack of coordination, No loss of vision, No memory loss, No numbness, No other visual disturbances, No radicular pain, Yes restless legs, No sensory deficit, No syn (more content not included)... Normal [facility] Abd Aortic/IVC Duplex scanon 10-01-2024 Abd Aortic/IVC Duplex scan [facility] [address] [place] [id number] Abd Aortic/IVC Duplex scan 10/01/24 0803 MR#: [id number] Acct: [id number] Name: LAVINIA URIOSTEGUI Rep #: [id number] : 1975 49 From: Junaid Whitney MD Attending Dr: JOSE Higgins Status: REG CLI Ordering Dr: Quynh Dupree Date: 10/01/24 Location: [facility] Sex: M C Admitted: Reason For Study Reason For Study: S/P L Iliac V Stent Inferior Vena Cava Proximal inferior vena cava measures 1.81x1.83 cm. in the cross-sectional axis. Proximal inferior vena cava measures 1.85 cm. in the longitudinal axis. Mid inferior vena cava measures 1.70x1.89 cm. in the cross- sectional axis. Mid inferior vena cava measures 1.68 cm. in the longitudinal axis. Distal inferior vena cava measures 1.57x1.81 cm. in the cross-sectional axis. Distal inferior vena cava measures 1.65 cm. in the longitudinal axis. The inferior vena cava has spontaneous, phasic flow throughout. Left Common Iliac Vein Left common iliac vein measures 1.57x1.48 cm. in the cross-sectional axis. Left common iliac vein measures 1.49 cm. in the longitudinal axis. The left common iliac vein has spontaneous, phasic flow throughout. Stent noted in left common iliac vein. Right Common Iliac Vein Right common iliac vein measures 1.21x1.04 cm. in the cross-sectional axis. Right common iliac vein measures 0.80 cm. in the longitudinal axis. The right common iliac vein has spontaneous, phasic flow throughout. Procedure Aorta IVC Iliac vasculature or bypass grafts 31370. Exam performed in department. VL/Abd Aortic/IVC Duplex scan Interpretation Summary Inferior vena cava and right iliac vein patent with normal venous flow pattern. Left iliac vein stent patent with normal venous flow pattern. Ordering Physician: Quynh Dupree Referring Physician: Valdo Fuentes Performed By: Elvin Wall RVT and Student 10/01/24 1259 Date Junaid Whitney MD CC: JOSE Higgins; Dr. Valdo Fuentes MD Date Dictated: 10/01/24 0803 Date Transcribed: 10/01/24 125 Foundry Metallurgist: Signed Normal [facility] Abdominal aortic duplex scan reportOrdered By: Junaid Whitney on 10-01-2024 US.doppler Thoracic and abdominal aorta [facility] [address] [place] [address] Abd Aortic/IVC Duplex scan 10/01/24 0803 MR#: [id number] Acct: [id number] Name: LAVINIA URIOSTEGUI Jr. Rep #: [id number] : 1975 49 From: Junaid Pierce Attending Dr: JOSE Higgins Stat us: REG CLI Ordering Dr: Quynh Dupree Date: Location: CVS Sex: M C Admitted: Reason For Study Reason For Study: S/P L Iliac V Stent Inferior Vena Cava Proximal inferior vena cava measures 1.81x1.83 cm. in the cross-sectional axis. Proximal inferior vena cava measures 1.85 cm. in the longitudinal axis. Mid inferior vena cava measures 1.70x1.89 cm.in the cross-sectional axis. Mid inferior vena cava measures 1.68 cm. in the longitudinal axis. Distal inferior vena cava measures 1.57x1.81 cm. in the cross-sectional axis. Distal inferior vena cava measures 1.65 cm. in the longitudinal axis. The inferior vena cava has spontaneous, phasic flow throughout. Left Common Iliac Vein Left common iliac vein measures 1.57x1.48 cm. in the cross-sectional axis. Left common iliac vein measures 1.49 cm. in the longitudinal axis. The left common iliac vein has spontaneous, phasic flow throughout. Stent noted in left common iliac vein. Right Common Iliac Vein Right common iliac vein measures 1.21x1.04 cm. in the cross-sectional axis. Right common iliac vein measures 0.80 cm. in the longitudinal axis. The right common iliac vein has spontaneous, phasic flow throughout. Procedure Aorta IVC Iliac vasculature or bypass grafts 19241. Exam performed in department. VL/Abd Aortic/IVC Duplex scan Interpretation Summary Inferior vena cava and right iliac vein patent with normal venous flow pattern. Left iliac vein stent patent with normal venous flow pattern. Ordering Physician: Quynh Dupree Referring Physician: Valdo Fuentes Performed By: Elvin Wall RVT and Student 10/01/24 1259 Date _ Junaid Whitney MD CC: JOSE Higgins; Dr. Valdo Fuentes MD ~ Date Dictated: 10/01/24 0803 Date Transcribed: 10/01/241258 Foundry Metallurgist: Signed [facility] Work Phone: Albumin to globulin ratioOrd ered By: HEALTH ASSESSMENT on 09-21-2024 Albumin/Globulin [Mass ratio] 1.1 {ratio} 0.9-2.4 [facility] Bilirubin, totalOrdered By: HEALTH ASSESSMENT on 09-21-2024 Bilirubin [Mass/Vol] 0.70 mg/dL 0.20-1.00 [facility] Comment on above: For patients on eltr ombopag therapy, use of Dimension [place] TBIL is not recommended. Blood urea nitrogen (BUN)/cr eatinine ratioOrdered By: HEALTH ASSESSMENT on 09-21-2024 Urea nitrogen/Creatinine [Mass ratio] 17.2 mg/mg 10-20 [facility] CBC-Complete Blood Cnt No Di ffon 09-21-2024 Erythrocyte distribution width (RBC) [Ratio] 12.7 % Normal 11.6-14.6 [facility] Comment on above: Performed By: #### L 500.4100, L100.0500, L500.4050, L501.9985 #### [facility] [address] [place], [place], [address] Hematocrit (Bld) [Volume fraction] 46.8 % Normal 40-54 [facility] Comment on above: Performed By: #### L 500.4100, L100.0500, L500.4050, L501.9985 #### [facility] [address] [place], [address] Hemoglobin (Bld) [Mass/Vol] 15.0 g/dL Normal 13.0-16.5 [facility] Comment on above: Performed By: #### L 500.4100, L100.0500, L500.4050, L501.9985 #### [facility] [address] [place], [address] MCH (RBC) [Entitic mass] 28.7 pg Normal 27.0-32.0 [facility] Comment on above: Performed By: #### L 500.4100, L100.0500, L500.4050, L501.9985 #### [facility] [address] [place], [address] MCHC (RBC) [Mass/Vol] 32.1 g/dL Normal 32-36 [facility] Comment on above: Performed By: #### L 500.4100, L100.0500, L500.4050, L501.9985 #### [facility] [address] [place], [address] MCV (RBC) [Entitic vol] 89.5 fL Normal 80-94 [facility] Comment on above: Performed By: #### L 500.4100, L100.0500, L500.4050, L501.9985 #### [facility] [address] [place], [address] Platelet mean volume (Bld) [Entitic vol] 10.4 fL Normal 6.2-12.0 [facility] Comment on above: Performed By: #### L 500.4100, L100.0500, L500.4050, L501.9985 #### [facility] [address] [place], [address] Platelets (Bld) [#/Vol] 216 10*3/uL Normal 150-450 [facility] Comment on above: Performed By: #### L 500.4100, L100.0500, L500.4050, L501.9985 #### [facility] [address] [place], [address] RBC (Bld) [#/Vol] 5.23 10*6/uL Normal 4.6-6.2 [facility] Comment on above: Performed By: #### L 500.4100, L100.0500, L500.4050, L501.9985 #### [facility] [address] [place], [address] RDW SD 41.6 fl Normal 35.1-43.9 [facility] Comment on above: Performed By: #### L 500.4100, L100.0500, L500.4050, L501.9985 #### [facility] [address] [place], [address] WBC (Bld) [#/Vol] 4.6 10*3/uL Normal 4.4-11.0 [facility] Comment on above: Performed By: #### L 500.4100, L100.0500, L500.4050, L501.9985 #### [facility] [address] [place], [address] Carbon dioxide measurementOr dered By: HEALTH ASSESSMENT on 09-21-2024 CO2 [Moles/Vol] 28.0 mmol/L 21.0-32.0 [facility] Chloride measurementOrdered By: HEALTH ASSESSMENT on 09-21-2024 Chloride [Moles/Vol] 102 mmol/L 98-107 [facility] Comprehensive Metabolic Prof ilon 09-21-2024 Albumin [Mass/Vol] 4.0 g/dL Normal 3.2-5.0 [facility] Comment on above: Performed By: #### L 500.4100, L100.0500, L500.4050, L501.9985 #### [facility] [address] [place], [address] Albumin/Globulin [Mass ratio] 1.1 {ratio} Normal 0.9-2.4 [facility] Comment on above: Performed By: #### L 500.4100, L100.0500, L500.4050, L501.9985 #### [facility] [address] [place], [address] ALK P 50 U/L Normal 45-117 [facility] Comment on above: Performed By: #### L 500.4100, L100.0500, L500.4050, L501.9985 #### [facility] [address] [place], [address] ALT [Catalytic activity/Vol] 42 U/L Normal 16-61 [facility] Comment on above: Performed By: #### L 500.4100, L100.0500, L500.4050, L501.9985 #### [facility] [address] [place], [address] AST [Catalytic activity/Vol] 30 U/L Normal 15-37 [facility] Comment on above: Performed By: #### L 500.4100, L100.0500, L500.4050, L501.9985 #### [facility] [address] [place], [address] Bilirubin [Mass/Vol] 0.70 mg/dL Normal 0.20-1.00 [facility] Comment on above: Result Comment: For patients on eltrombopag therapy, use of Dimension [place] TBIL is not recommended. Performed By: #### L 500.4100, L100.0500, L500.4050, L501.9985 #### [facility] [address] [place], [address] BUN/CRE 17.2 RATIO Normal 10-20 [facility] Comment on above: Performed By: #### L 500.4100, L100.0500, L500.4050, L501.9985 #### [facility] [address] [place], [address] CA,Total 9.2 mg/dL Normal 8.5-10.1 [facility] Comment on above: Performed By: #### L 500.4100, L100.0500, L500.4050, L501.9985 #### [facility] [address] [place], [address] Chloride [Moles/Vol] 102 mmol/L Normal 98-107 [facility] Comment on above: Performed By: #### L 500.4100, L100.0500, L500.4050, L501.9985 #### [facility] [address] [place], [address] CO2 [Moles/Vol] 28.0 mmol/L Normal 21.0-32.0 [facility] Comment on above: Performed By: #### L 500.4100, L100.0500, L500.4050, L501.9985 #### [facility] [address] [place], [address] Creatinine [Mass/Vol] 0.99 mg/dL Normal 0.70-1.30 [facility] Comment on above: Result Comment: The validity of the calculated GFR GFRAA in patients over 70 years has not been determined. Clinical correlation is essential. Performed By: #### L 500.4100, L100.0500, L500.4050, L501.9985 #### [facility] [address] [place], [address] EST GFR - AA 103 mL/min Normal >60 [facility] Comment on above: Result Comment: Afri can [place] GFR Calc Performed By: #### L 500.4100, L100.0500, L500.4050, L501.9985 #### [facility] [address] [place], [address] GAP 7 Normal 5-15 [facility] Comment on above: Performed By: #### L 500.4100, L100.0500, L500.4050, L501.9985 #### [facility] [address] [place], [address] GFR/1.73 sq M.predicted among non-blacks MDRD (S/P/Bld) [Vol rate/Area] 86 mL/min/{1.73_m2} Normal >60 [facility] Comment on above: Result Comment: Non- GFR Calc Performed By: #### L 500.4100, L100.0500, L500.4050, L501.9985 #### [facility] [address] [place], [address] Globulin (S) [Mass/Vol] 3.5 g/dL Normal 2.2-4.2 [facility] Comment on above: Performed By: #### L 500.4100, L100.0500, L500.4050, L501.9985 #### [facility] [address] [place], [address] Glucose [Mass/Vol] 83 mg/dL Normal 74-106 [facility] Comment on above: Performed By: #### L 500.4100, L100.0500, L500.4050, L501.9985 #### [facility] [address] [place], [address] Potassium [Moles/Vol] 4.0 mmol/L Normal 3.5-5.1 [facility] Comment on above: Performed By: #### L 500.4100, L100.0500, L500.4050, L501.9985 #### [facility] [address] [place], [address] Sodium [Moles/Vol] 136 mmol/L Normal 136-145 [facility] Comment on above: Performed By: #### L 500.4100, L100.0500, L500.4050, L501.9985 #### [facility] [address] [place], [address] T PROT 7.5 g/dL Normal 6.4-8.2 [facility] Comment on above: Performed By: #### L 500.4100, L100.0500, L500.4050, L501.9985 #### [facility] [address] [place], [address] Urea nitrogen [Mass/Vol] 17 mg/dL Normal 7-18 [facility] Comment on above: Performed By: #### L 500.4100, L100.0500, L500.4050, L501.9985 #### [facility] [address] [place], [address] Erythrocyte distribution wid th ratioOrdered By: HEALTH ASSESSMENT on 09-21-2024 Erythrocyte distribution width (RBC) [Ratio] 12.7 % 11.6-14.6 [facility] Erythrocyte distribution wid th standard deviationOrdered By: HEALTH ASSESSMENT on 09-21-2024 Erythrocyte distribution width (RBC) [Entitic vol] 41.6 fL 35.1-43.9 [facility] Estimated glomerular filtrat ion rate (GFR) AmericanOrdered By: HEALTH ASSESSMENT on 09-21-2024 Estimated GFR (MDRD) Amer 103 mL/min >60 [facility] Comment on above: GFR Calc Glomerular filtration rate ( GFR) estimationOrdered By: HEALTH ASSESSMENT on 09-21-2024 Estimated GFR (MDRD) Non-Af Amer 86 mL/min >60 [facility] Comment on above: Non- GFR Calc Glucose measurementOrdered B y: HEALTH ASSESSMENT on 09-21-2024 Glucose [Mass/Vol] 83 mg/dL 74-106 [facility] Hematocrit Auto (Bld) [Volum e fraction]Ordered By: HEALTH ASSESSMENT on 09-21-2024 Hematocrit (Bld) [Volume fraction] 46.8 % 40-54 [facility] Hemoglobin A1con 09-21-2024 HbA1c (Bld) [Mass fraction] 5.5 % Normal 3.8-5.6 [facility] Comment on above: Result Comment: Norm al < 5.7 % Prediabetic 5.7 - 6.4 % Diabetic >or= 6.5 % Please note range changes. Performed By: #### L 500.4100, L100.0500, L500.4050, L501.9985 #### [facility] [address] [place], [place], [id number] Hemoglobin A1c percentageOrd ered By: HEALTH ASSESSMENT on 09-21-2024 HbA1c (Bld) [Mass fraction] 5.5 % 3.8-5.6 [facility] Comment on above: Normal < 5.7 % Predi abetic 5.7 - 6.4 % Diabetic >or= 6.5 % Please note range changes. Hemoglobin measurementOrdere d By: HEALTH ASSESSMENT on 09-21-2024 Hemoglobin (Bld) [Mass/Vol] 15.0 g/dL 13.0-16.5 [facility] High density lipoprotein (HD L) measurementOrdered By: HEALTH ASSESSMENT on 09-21-2024 Cholesterol in HDL [Mass/Vol] 56 mg/dL >40 [facility] Comment on above: The drugs N-Acetylcy steine and Metamizole may falsely depress this assay. Reference Range HDL <40 mg/dL Low HDL Cholesterol HDL >or= 60 mg/dL High HDL Cholesterol Laboratory - Chemistry and C hemistry - challengeOrdered By: HEALTH ASSESSMENT on 09-21-2024 AST [Catalytic activity/Vol] 30 U/L 15-37 [facility] Lipid Profileon 09-21-2024 Cholesterol [Mass/Vol] 169 mg/dL Normal 200 [facility] Comment on above: Result Comment: <200 mg/dL Desirable 200-240 mg/dL Borderline >240 mg/dL High Risk Performed By: #### L 500.4100, L100.0500, L500.4050, L501.9985 #### [facility] [address] [place], [place], [address] Cholesterol in HDL [Mass/Vol] 56 mg/dL Normal [facility] Comment on above: Result Comment: The drugs N-Acetylcysteine and Metamizole may falsely depress this assay. Reference Range HDL <40 mg/dL Low HDL Cholesterol HDL >or= 60 mg/dL High HDL Cholesterol Performed By: #### L 500.4100, L100.0500, L500.4050, L501.9985 #### [facility] [address] [place], [address] Cholesterol in LDL [Mass/Vol] 98 mg/dL Normal 0-130 [facility] Comment on above: Performed By: #### L 500.4100, L100.0500, L500.4050, L501.9985 #### [facility] [address] [place], [address] Cholesterol in VLDL [Mass/Vol] 15 mg/dL Normal 5-40 [facility] Comment on above: Performed By: #### L 500.4100, L100.0500, L500.4050, L501.9985 #### [facility] [address] [place], [address] Triglyceride [Mass/Vol] 74 mg/dL Normal [facility] Comment on above: Result Comment: The drugs N-Acetylcysteine and Metamizole may falsely depress this assay. Serum Triglycerides Reference Interval Normal <150 mg/dL Borderline high 150 - 199 mg/dL High 200 - 499 mg/dL Very High > or = 500 mg/dL Performed By: #### L 500.4100, L100.0500, L500.4050, L501.9985 #### [facility] [address] [place], [address] Low density lipoprotein (LDL ) cholesterol measurementOrdered By: HEALTH ASSESSMENT on 09-21-2024 Cholesterol in LDL [Mass/Vol] 98 mg/dL 0-130 [facility] MCV (mean corpuscular volume ) determinationOrdered By: HEALTH ASSESSMENT on 09-21-2024 MCV (RBC) [Entitic vol] 89.5 fL 80-94 [facility] Mean corpuscular hemoglobin (MCH) determinationOrdered By: HEALTH ASSESSMENT on 09-21-2024 MCH (RBC) [Entitic mass] 28.7 pg 27.0-32.0 [facility] Mean corpuscular hemoglobin concentration (MCHC) determinationOrdered By: HEALTH ASSESSMENT on 09-21-2024 MCHC (RBC) [Mass/Vol] 32.1 g/dL 32-36 [facility] Mean platelet volume determi nationOrdered By: HEALTH ASSESSMENT on 09-21-2024 Platelet mean volume (Bld) [Entitic vol] 10.4 fL 6.2-12.0 [facility] Platelet countOrdered By: HE ALTH ASSESSMENT on 09-21-2024 Platelets (Bld) [#/Vol] 216 10*3/uL 150-450 [facility] Potassium measurementOrdered By: HEALTH ASSESSMENT on 09-21-2024 Potassium [Moles/Vol] 4.0 mmol/L 3.5-5.1 [facility] RBC Auto (Bld) [#/Vol]Ordere d By: HEALTH ASSESSMENT on 09-21-2024 RBC (Bld) [#/Vol] 5.23 10*6/uL 4.6-6.2 [facility] Serum anion gap measurementO rdered By: HEALTH ASSESSMENT on 09-21-2024 Anion gap [Moles/Vol] 7 mmol/L 5-15 [facility] Serum globulin measurementOr dered By: HEALTH ASSESSMENT on 09-21-2024 Globulin (S) [Mass/Vol] 3.5 g/dL 2.2-4.2 [facility] Serum or plasma alanine romano otransferase (ALT) measurementOrdered By: HEALTH ASSESSMENT on 09-21-2024 ALT [Catalytic activity/Vol] 42 U/L 16-61 [facility] Serum or plasma albumin stacey urement (mass/volume)Ordered By: HEALTH ASSESSMENT on 09-21-2024 Albumin [Mass/Vol] 4.0 g/dL 3.2-5.0 [facility] Serum or plasma alkaline aide sphatase measurementOrdered By: HEALTH ASSESSMENT on 09-21-2024 ALP [Catalytic activity/Vol] 50 U/L 45-117 [facility] Serum or plasma calcium stacey urement (mass/volume)Ordered By: HEALTH ASSESSMENT on 09-21-2024 Calcium [Mass/Vol] 9.2 mg/dL 8.5-10.1 [facility] Serum or plasma cholesterol measurement (mass/volume)Ordered By: HEALTH ASSESSMENT on 09-21-2024 Cholesterol [Mass/Vol] 169 mg/dL <200 [facility] Comment on above: <200 mg/dL Desirable 200-240 mg/dL Borderline >240 mg/dL High Risk Serum or plasma creatinine m easurement (mass/volume)Ordered By: HEALTH ASSESSMENT on 09-21-2024 Creatinine [Mass/Vol] 0.99 mg/dL 0.70-1.30 [facility] Comment on above: The validity of the calculated GFR & GFRAA in patients over 70 years has not been determined. Clinical correlation is essential. Serum or plasma urea nitroge n measurement (mass/volume)Ordered By: HEALTH ASSESSMENT on 09-21-2024 Urea nitrogen [Mass/Vol] 17 mg/dL 7-18 [facility] Sodium levelOrdered By: HEAL ASSESSMENT on 09-21-2024 Sodium [Moles/Vol] 136 mmol/L 136-145 [facility] Total proteinOrdered By: [facility] ASSESSMENT on 09-21-2024 Protein [Mass/Vol] 7.5 g/dL 6.4-8.2 [facility] Triglycerides measurementOrd ered By: HEALTH ASSESSMENT on 09-21-2024 Triglyceride [Mass/Vol] 74 mg/dL <199 [facility] Comment on above: The drugs N-Acetylcy steine and Metamizole may falsely depress this assay.Serum Triglycerides Reference Interval Normal <150 mg/dL Borderline high 150 - 199 mg/dL High 200 - 499 mg/dL Very High > or = 500 mg/dL Very low density lipoprotein (VLDL) cholesterol measurementOrdered By: HEALTH ASSESSMENT on 09-21-2024 VLDL Cholesterol 15 mg/dL 5-40 [facility] White blood cell (WBC) count Ordered By: HEALTH ASSESSMENT on 09-21-2024 WBC (Bld) [#/Vol] 4.6 10*3/uL 4.4-11.0 [facility] Knee 4 or More Viewson 05-16 Knee 4 or More Views [facility] [address] [place] [id number] Knee 4 or More Views MR#: [id number] Acct: [id number] Name: LAVINIA URIOSTEGUI Jr. Rep #: [id number] : 1975 M 48 From: Asad Suarez MD PCP: Dr. Valdo Fuentes MD Status: REG CLI Study: Knee 4 or More Views Date of Exam: 05/16/24 Exam# [id number] Ordering Dr: Valdo Fuentes MD [id number] STUDY: X-RAY - RIGHT KNEE REASON FOR EXAM: Male, 48 years old. KNEE PAIN TECHNIQUE: 4 views of the right knee. COMPARISON: None. FINDINGS: Normal visualized distal femur. Normal visualized proximal tibia and fibula. Normal proximal tibiofibular articulation. There is no demonstrated fracture. There is moderate degenerative arthrosis of the medial femorotibial compartment with moderate joint space narrowing. There is mild degenerative arthrosis of the lateral femorotibial compartment. There is moderate degenerative arthrosis of the patellofemoral articulation. There is a moderate volume joint effusion. The soft tissue structures are unremarkable. RAD/Knee 4 or More Views IMPRESSION: Tricompartment degenerative arthrosis of the right knee, most pronounced in the patellofemoral and medial femoral tibial compartments. Moderate joint effusion. No demonstrated fracture. Electronically Signed: Asad Suarez MD at 14:23 EDT , CC: Dr. Valdo Fuentes MD Foundry Metallurgist: Signed Normal [facility] Testosterone, Total / Freeon 04-09-2024 TESTOSTER,FREE 53.66 ng/dL Abnormal 5.00-21.00 [facility] Comment on above: Order Comment: N Performed By: #### L 3100.5310, L500.4100, L501.9910, L100.0100, L500.2500 ####[facility] [address] [place], [address] TESTOSTERONE, T 1040 ng/dL High 264-916 [facility] Comment on above: Order Comment: N Result Comment: Adul t male reference interval is based on a population of healthy nonobese males (BMI <30) between 19 and 39 years old. theodore Murphy.al. JCEM 2017,102;5824-1538. PMID: [id number]. Performed By: #### L 3100.5310, L500.4100, L501.9910, L100.0100, L500.2500 ####[facility] [address] [place], [address] TESTOSTERONE,%F 5.16 High 1.50-4.20 [facility] Comment on above: Order Comment: N Result Comment: Perf ormed at: - [facility] [address] [id number] Bioinformatician: Reji Rahman PhD, Phone: [phone] Performed at: - [facility] [address] [id number] Bioinformatician: Nadia Green MD, Phone: [phone] Performed By: #### L 3100.5310, L500.4100, L501.9910, L100.0100, L500.2500 ####[facility] [address] [place], [address] Basic Metabolic Profile (BMP )on 04-04-2024 BUN/CRE 16.9 RATIO Normal 10-20 [facility] Comment on above: Performed By: #### L 3100.5310, L500.4100, L501.9910, L100.0100, L500.2500 ####[facility] [address] [place], [address] CA,Total 9.4 mg/dL Normal 8.5-10.1 [facility] Comment on above: Performed By: #### L 3100.5310, L500.4100, L501.9910, L100.0100, L500.2500 ####[facility] [address] [place], [address] Chloride [Moles/Vol] 102 mmol/L Normal 98-107 [facility] Comment on above: Performed By: #### L 3100.5310, L500.4100, L501.9910, L100.0100, L500.2500 ####[facility] [address] [place], [address] CO2 [Moles/Vol] 28.0 mmol/L Normal 21.0-32.0 [facility] Comment on above: Performed By: #### L 3100.5310, L500.4100, L501.9910, L100.0100, L500.2500 ####[facility] [address] [facility] [address] Creatinine [Mass/Vol] 0.95 mg/dL Normal 0.70-1.30 [facility] Comment on above: Result Comment: The validity of the calculated GFR GFRAA in patients over 70 years has not been determined. Clinical correlation is essential. Performed By: #### L 3100.5310, L500.4100, L501.9910, L100.0100, L500.2500 ####[facility] [address] [place], [address] EST GFR - AA 109 mL/min Normal >60 [facility] Comment on above: Result Comment: Afri can [place] GFR Calc Performed By: #### L 3100.5310, L500.4100, L501.9910, L100.0100, L500.2500 ####[facility] [address] [place], [address] GAP 4 Low 5-15 [facility] Comment on above: Performed By: #### L 3100.5310, L500.4100, L501.9910, L100.0100, L500.2500 ####[facility] [address] [place], [address] GFR/1.73 sq M.predicted among non-blacks MDRD (S/P/Bld) [Vol rate/Area] 90 mL/min/{1.73_m2} Normal >60 [facility] Comment on above: Result Comment: Non- GFR Calc Performed By: #### L 3100.5310, L500.4100, L501.9910, L100.0100, L500.2500 ####[facility] [address] [place], [address] Glucose [Mass/Vol] 92 mg/dL Normal 74-106 [facility] Comment on above: Performed By: #### L 3100.5310, L500.4100, L501.9910, L100.0100, L500.2500 ####[facility] [address] [place], [address] Potassium [Moles/Vol] 4.8 mmol/L Normal 3.5-5.1 [facility] Comment on above: Performed By: #### L 3100.5310, L500.4100, L501.9910, L100.0100, L500.2500 ####[facility] [address] [place], [address] Sodium [Moles/Vol] 134 mmol/L Low 136-145 [facility] Comment on above: Performed By: #### L 3100.5310, L500.4100, L501.9910, L100.0100, L500.2500 ####[facility] [address] [place], [address] Urea nitrogen [Mass/Vol] 16 mg/dL Normal 7-18 [facility] Comment on above: Performed By: #### L 3100.5310, L500.4100, L501.9910, L100.0100, L500.2500 ####[facility] [address] [place], [address] CBC W/Diff, Automatedon 09-0 4-2023 Absolute Lymph 0.79 X10 3/uL Low 0.83-4.51 [facility] Comment on above: Performed By: #### L 3100.5310, L500.4100, L501.9910, L100.0100, L500.2500 #### [facility] [address] [place], [address] Absolute Neut 8.4 X10 3/uL High 2.0-7.7 [facility] Comment on above: Performed By: #### L 3100.5310, L500.4100, L501.9910, L100.0100, L500.2500 #### [facility] [address] [place], [address] Basophils/100 WBC (Bld) 0.7 % Normal 0-1 [facility] Comment on above: Performed By: #### L 3100.5310, L500.4100, L501.9910, L100.0100, L500.2500 #### [facility] [address] [place], [address] Eosinophils/100 WBC (Bld) 0.9 % Normal 0-5 [facility] Comment on above: Performed By: #### L 3100.5310, L500.4100, L501.9910, L100.0100, L500.2500 #### [facility] [address] [place], [address] Erythrocyte distribution width (RBC) [Ratio] 13.0 % Normal 11.6-14.6 [facility] Comment on above: Performed By: #### L 3100.5310, L500.4100, L501.9910, L100.0100, L500.2500 #### [facility] [address] [place], [address] Hematocrit (Bld) [Volume fraction] 46.4 % Normal 40-54 [facility] Comment on above: Performed By: #### L 3100.5310, L500.4100, L501.9910, L100.0100, L500.2500 #### [facility] [address] [place], [address] Hemoglobin (Bld) [Mass/Vol] 15.2 g/dL Normal 13.0-16.5 [facility] Comment on above: Performed By: #### L 3100.5310, L500.4100, L501.9910, L100.0100, L500.2500 #### [facility] [address] [facility] [place], [address] IG% 0.300 Normal 0.0-0.9 [facility] Comment on above: Result Comment: IG% - Immature Granulocytes (promyelocytes, myelocytes and metamyelocytes) > 1% indicates that a LEFT SHIFT is Present. Performed By: #### L 3100.5310, L500.4100, L501.9910, L100.0100, L500.2500 #### [facility] [address] [place], [address] Lymphocytes/100 WBC (Bld) 7.8 % Low 19-41 [facility] Comment on above: Performed By: #### L 3100.5310, L500.4100, L501.9910, L100.0100, L500.2500 #### [facility] [address] [place], [address] MCH (RBC) [Entitic mass] 29.2 pg Normal 27.0-32.0 [facility] Comment on above: Performed By: #### L 3100.5310, L500.4100, L501.9910, L100.0100, L500.2500 #### [facility] [address] [place], [address] MCHC (RBC) [Mass/Vol] 32.8 g/dL Normal 32-36 [facility] Comment on above: Performed By: #### L 3100.5310, L500.4100, L501.9910, L100.0100, L500.2500 #### [facility] [address] [place], [address] MCV (RBC) [Entitic vol] 89.1 fL Normal 80-94 [facility] Comment on above: Performed By: #### L 3100.5310, L500.4100, L501.9910, L100.0100, L500.2500 #### [facility] [address] [place], [address] Monocytes/100 WBC (Bld) 6.5 % Normal 0-10 [facility] Comment on above: Performed By: #### L 3100.5310, L500.4100, L501.9910, L100.0100, L500.2500 #### [facility] [address] [place], [address] Neutrophils/100 WBC (Bld) 83.8 % High 47-70 [facility] Comment on above: Performed By: #### L 3100.5310, L500.4100, L501.9910, L100.0100, L500.2500 #### [facility] [address] [place], [address] Nucleated RBC (Bld) [#/Vol] 0 10*3/uL Normal 0-5 [facility] Comment on above: Performed By: #### L 3100.5310, L500.4100, L501.9910, L100.0100, L500.2500 #### [facility] [address] [place], [address] Platelet mean volume (Bld) [Entitic vol] 11.0 fL Normal 6.2-12.0 [facility] Comment on above: Performed By: #### L 3100.5310, L500.4100, L501.9910, L100.0100, L500.2500 #### [facility] [address] [place], [address] Platelets (Bld) [#/Vol] 203 10*3/uL Normal 150-450 [facility] Comment on above: Performed By: #### L 3100.5310, L500.4100, L501.9910, L100.0100, L500.2500 #### [facility] [address] [place], [address] RBC (Bld) [#/Vol] 5.21 10*6/uL Normal 4.6-6.2 [facility] Comment on above: Performed By: #### L 3100.5310, L500.4100, L501.9910, L100.0100, L500.2500 #### [facility] [address] [place], [address] RDW SD 42.4 fl Normal 35.1-43.9 [facility] Comment on above: Performed By: #### L 3100.5310, L500.4100, L501.9910, L100.0100, L500.2500 #### [facility] [address] [place], [address] WBC (Bld) [#/Vol] 10.1 10*3/uL Normal 4.4-11.0 [facility] Comment on above: Performed By: #### L 3100.5310, L500.4100, L501.9910, L100.0100, L500.2500 #### [facility] [address] [place], [address] Lipid Profileon 04-04-2024 Cholesterol [Mass/Vol] 150 mg/dL Normal 200 [facility] Comment on above: Result Comment: <200 mg/dL Desirable 200-240 mg/dL Borderline >240 mg/dL High Risk Performed By: #### L 3100.5310, L500.4100, L501.9910, L100.0100, L500.2500 ####[facility] [address] [place], [address] Cholesterol in HDL [Mass/Vol] 59 mg/dL Normal [facility] Comment on above: Result Comment: The drugs N-Acetylcysteine and Metamizole may falsely depress this assay. Reference Range HDL <40 mg/dL Low HDL Cholesterol HDL >or= 60 mg/dL High HDL Cholesterol Performed By: #### L 3100.5310, L500.4100, L501.9910, L100.0100, L500.2500 ####[facility] [address] [place], [address] Cholesterol in LDL [Mass/Vol] 71 mg/dL Normal 0-130 [facility] Comment on above: Performed By: #### L 3100.5310, L500.4100, L501.9910, L100.0100, L500.2500 ####[facility] [address] [place], [address] Cholesterol in VLDL [Mass/Vol] 20 mg/dL Normal 5-40 [facility] Comment on above: Performed By: #### L 3100.5310, L500.4100, L501.9910, L100.0100, L500.2500 ####[facility] [address] [place], [address] Triglyceride [Mass/Vol] 101 mg/dL Normal [facility] Comment on above: Result Comment: The drugs N-Acetylcysteine and Metamizole may falsely depress this assay. Serum Triglycerides Reference Interval Normal <150 mg/dL Borderline high 150 - 199 mg/dL High 200 - 499 mg/dL Very High > or = 500 mg/dL Performed By: #### L 3100.5310, L500.4100, L501.9910, L100.0100, L500.2500 ####[facility] [address] [place], [address] PSA,Total - Annual Screenon 04-04-2024 PSA,TOT SCREEN 0.98 ng/mL Normal 0.00-4.00 [facility] Comment on above: Result Comment: This test was performed using the TPSA assay method for the [employer] chemistry system. Values obtained with different assay methods cannot be used interchangably. When changing PSA assays in the course of monitoring a patient, additional sequential testing should be carried out to confirm baseline values. Performed By: #### L 3100.5310, L500.4100, L501.9910, L100.0100, L500.2500 ####[facility] [address] [place], [address] Abd Aortic/IVC Duplex scanon 03-23-2024 Abd Aortic/IVC Duplex scan [facility] [address] [facility] [place] [address] Abd Aortic/IVC Duplex scan 03/23/24 0821 MR#: [id number] Acct: [id number] Name: LAVINIA URIOSTEGUI . Rep #: [id number] : 1975 48 From: Junaid Whitney MD Attending Dr: JOSE Higgins Status: REG CLI Ordering Dr: Quynh Dupree Date: 03/23/24 Location: CVS Sex: M C Admitted: Reason For Study: S/P Lt iliac vein stent Inferior Vena Cava Proximal inferior vena cava measures 1.94 x 3.21 cm. in the cross-sectional axis. Proximal inferior vena cava measures 2.26 cm. in the longitudinal axis. Mid inferior vena cava measures 1.60 x 2.18 cm. in the cross-sectional axis. Mid inferior vena cava measures 1.73 cm. in the longitudinal axis. Distal inferior vena cava measures 1.56 x 2.95 cm. in the cross-sectional axis. Distal inferior vena cava measures 1.82 cm. in the longitudinal axis. The inferior vena cava has spontaneous, phasic flow throughout. Left Common Iliac Vein Left common iliac vein measures 1.45 x 1.41 cm. in the cross-sectional axis. Left common iliac vein measures 1.52 cm. in the longitudinal axis. The left common iliac vein has spontaneous, phasic flow throughout. Lt CIV STENT noted. Right Common Iliac Vein Right common iliac vein measures 1.00 x 1.93 cm. in the cross-sectional axis. Right common iliac vein measures 1.12 cm. in the longitudinal axis. The right common iliac vein has spontaneous, phasic flow throughout. VL/Abd Aortic/IVC Duplex scan Interpretation Summary Patent inferior vena cava and right iliac vein with normal venous flow. Patent left iliac vein stent with normal venous flow. Ordering Physician: Quynh Dupree Referring Physician: Valdo Fuentes Performed By: Lorena Gastelum RVT 03/26/241806 Date Junaid Whitney MD CC: JOSE Higgins; Dr. Valdo Fuentes MD Date Dictated: 03/23/24820 Date Transcribed: 03/26/241806 [employer]: Signed Normal [facility] Basophil percentageOrdered B y: Junaid Whitney on 09-29-2023 Chloride [Moles/Vol] 111 mmol/L 98-107 [facility] Glucose [Mass/Vol] 89 mg/dL 74-106 [facility] Hemoglobin (Bld) [Mass/Vol] 14.9 g/dL 13.0-16.5 [facility] Potassium [Moles/Vol] 4.6 mmol/L 3.5-5.1 [facility] Sodium [Moles/Vol] 138 mmol/L 136-145 [facility] WBC (Bld) [#/Vol] 4.7 10*3/uL 4.4-11.0 [facility] Determination of erythrocyte mean corpuscular volume (MCV)Ordered By: Junaid Whitney on 09-29-2023 MCV (RBC) [Entitic vol] 87.8 fL 80-94 [facility] Erythrocyte distribution wid th ratioOrdered By: Junaid Whitney on 09-29-2023 Erythrocyte distribution width (RBC) [Ratio] 12.5 % 11.6-14.6 [facility] Erythrocyte distribution wid th standard deviationOrdered By: Junaid Whitney on 09-29-2023 Erythrocyte distribution width (RBC) [Entitic vol] 40.8 fL 35.1-43.9 [facility] Hematocrit Auto (Bld) [Volum e fraction]Ordered By: Junaid Whitney on 09-29-2023 Hematocrit (Bld) [Volume fraction] 45.5 % 40-54 [facility] - Chemistry and C hemistry - challengeOrdered By: Junadi Whitney on 09-29-2023 CO2 [Moles/Vol] 26.0 mmol/L 21.0-32.0 [facility] Urea nitrogen/Creatinine [Mass ratio] 12.4 mg/mg 10-20 [facility] - Hematology and Cell countsOrdered By: Junaid Whitney on 09-29-2023 MCH (RBC) [Entitic mass] 28.8 pg 27.0-32.0 [facility] MCHC (RBC) [Mass/Vol] 32.7 g/dL 32-36 [facility] Platelet mean volume (Bld) [Entitic vol] 10.7 fL 6.2-12.0 [facility] Platelets (Bld) [#/Vol] 218 10*3/uL 150-450 [facility] No Panel InformationOrdered By: Junaid Whitney on 09-29-2023 Estimated Creatinine Clearance Calc 112.33 ml/min [facility] Estimated GFR (MDRD) Amer 106 mL/min >60 [facility] Comment on above: GFR Calc Estimated GFR (MDRD) Non-Af Amer 88 mL/min >60 [facility] Comment on above: Non- GFR Calc RBC Auto (Bld) [#/Vol]Ordere d By: Junaid Whitney on 09-29-2023 RBC (Bld) [#/Vol] 5.18 10*6/uL 4.6-6.2 [facility] Serum or plasma calcium stacey urement (mass/volume)Ordered By: Junaid Whitney on 09-29-2023 Calcium [Mass/Vol] 9.0 mg/dL 8.5-10.1 [facility] Serum or plasma creatinine m easurement (mass/volume)Ordered By: Junaid Whitney on 09-29-2023 Creatinine [Mass/Vol] 0.97 mg/dL 0.70-1.30 [facility] Comment on above: The validity of the calculated GFR & GFRAA in patients over 70 years has not been determined. Clinical correlation is essential. Serum or plasma urea nitroge n measurement (mass/volume)Ordered By: Junaid Whitney on 09-29-2023 Urea nitrogen [Mass/Vol] 12 mg/dL 7-18 [facility] Thin prep Papanicolaou smear with manual screeningOrdered By: Junaid Whitney on 09-29-2023 Thin prep Papanicolaou smear with manual screening 1 5-15 [facility] Basophil percentageOrdered B y: HEALTH ASSESSMENT on 09-06-2023 Bilirubin [Mass/Vol] 1.20 mg/dL 0.20-1.00 [facility] Comment on above: For patients on eltr ombopag therapy, use of Dimension [place] TBIL is not recommended. Chloride [Moles/Vol] 105 mmol/L 98-107 [facility] Cholesterol [Mass/Vol] 164 mg/dL <200 [facility] Comment on above: <200 mg/dL Desirable 200-240 mg/dL Borderline >240 mg/dL High Risk Glucose [Mass/Vol] 87 mg/dL 74-106 [facility] Hemoglobin (Bld) [Mass/Vol] 15.1 g/dL 13.0-16.5 [facility] Potassium [Moles/Vol] 4.0 mmol/L 3.5-5.1 [facility] Protein [Mass/Vol] 8.3 g/dL 6.4-8.2 [facility] Sodium [Moles/Vol] 137 mmol/L 136-145 [facility] Triglyceride [Mass/Vol] 74 mg/dL <199 [facility] Comment on above: The drugs N-Acetylcy steine and Metamizole may falsely depress this assay.Serum Triglycerides Reference Interval Normal <150 mg/dL Borderline high 150 - 199 mg/dL High 200 - 499 mg/dL Very High > or = 500 mg/dL WBC (Bld) [#/Vol] 5.9 10*3/uL 4.4-11.0 [facility] Determination of erythrocyte mean corpuscular volume (MCV)Ordered By: HEALTH ASSESSMENT on 09-06-2023 MCV (RBC) [Entitic vol] 89.7 fL 80-94 [facility] Erythrocyte distribution wid th ratioOrdered By: HEALTH ASSESSMENT on 09-06-2023 Erythrocyte distribution width (RBC) [Ratio] 12.7 % 11.6-14.6 [facility] Erythrocyte distribution wid th standard deviationOrdered By: HEALTH ASSESSMENT on 09-06-2023 Erythrocyte distribution width (RBC) [Entitic vol] 42.0 fL 35.1-43.9 [facility] Hematocrit Auto (Bld) [Volum e fraction]Ordered By: HEALTH ASSESSMENT on 09-06-2023 Hematocrit (Bld) [Volume fraction] 47.0 % 40-54 [facility] - Chemistry and C hemistry - challengeOrdered By: HEALTH ASSESSMENT on 09-06-2023 Albumin/Globulin [Mass ratio] 1.1 {ratio} 0.9-2.4 [facility] ALP [Catalytic activity/Vol] 41 U/L 45-117 [facility] ALT [Catalytic activity/Vol] 39 U/L 16-61 [facility] Cholesterol in HDL [Mass/Vol] 56 mg/dL >40 [facility] Comment on above: The drugs N-Acetylcy steine and Metamizole may falsely depress this assay. Reference Range HDL <40 mg/dL Low HDL Cholesterol HDL >or= 60 mg/dL High HDL Cholesterol Cholesterol in LDL [Mass/Vol] 93 mg/dL 0-130 [facility] CO2 [Moles/Vol] 28.0 mmol/L 21.0-32.0 [facility] Globulin (S) [Mass/Vol] 4.0 g/dL 2.2-4.2 [facility] Urea nitrogen/Creatinine [Mass ratio] 15.4 mg/mg 10-20 [facility] - Hematology and Cell countsOrdered By: HEALTH ASSESSMENT on 09-06-2023 MCH (RBC) [Entitic mass] 28.8 pg 27.0-32.0 [facility] MCHC (RBC) [Mass/Vol] 32.1 g/dL 32-36 [facility] Platelet mean volume (Bld) [Entitic vol] 11.1 fL 6.2-12.0 [facility] Platelets (Bld) [#/Vol] 227 10*3/uL 150-450 [facility] No Panel InformationOrdered By: HEALTH ASSESSMENT on 09-06-2023 Estimated GFR (MDRD) Amer 98 mL/min >60 [facility] Comment on above: GFR Calc Estimated GFR (MDRD) Non-Af Amer 81 mL/min >60 [facility] Comment on above: Non- GFR Calc VLDL Cholesterol 15 mg/dL 5-40 [facility] RBC Auto (Bld) [#/Vol]Ordere d By: HEALTH ASSESSMENT on 09-06-2023 RBC (Bld) [#/Vol] 5.24 10*6/uL 4.6-6.2 [facility] Serum or plasma calcium stacey urement (mass/volume)Ordered By: HEALTH ASSESSMENT on 09-06-2023 Calcium [Mass/Vol] 9.6 mg/dL 8.5-10.1 [facility] Serum or plasma creatinine m easurement (mass/volume)Ordered By: HEALTH ASSESSMENT on 09-06-2023 Creatinine [Mass/Vol] 1.04 mg/dL 0.70-1.30 [facility] Comment on above: The validity of the calculated GFR & GFRAA in patients over 70 years has not been determined. Clinical correlation is essential. Serum or plasma nicotine ciarra surement (mass/volume)Ordered By: HEALTH ASSESSMENT on 09-06-2023 Nicotine [Mass/Vol] <1.0 ug/mL . [facility] Comment on above: This test was develo ped and its performance characteristicsdetermined by [employer]. It has not been cleared orapproved by the Food and Drug Administration.Nicotine levels greater than 2.0 are consistent with theuse of tobacco or tobacco cessation products. Serum or plasma urea nitroge n measurement (mass/volume)Ordered By: HEALTH ASSESSMENT on 09-06-2023 Urea nitrogen [Mass/Vol] 16 mg/dL 7-18 [facility] Thin prep Papanicolaou smear with manual screeningOrdered By: HEALTH ASSESSMENT on 09-06-2023 Thin prep Papanicolaou smear with manual screening 4.3 g/dL 3.2-5.0 [facility] Thin prep Papanicolaou smear with manual screening 7 U/L 15-37 [facility] Thin prep Papanicolaou smear with manual screening 4 5-15 [facility] Thin prep Papanicolaou smear with manual screening 138.8 ug/mL . [facility] Comment on above: This test was develo ped and its performance characteristicsdetermined by [employer]. It has not been cleared orapproved by the Food and Drug Administration.Cotinine levels greater than 20.0 are consistent with theuse of tobacco or tobacco cessation products.Performed at: [facility] [employer] [id number] Director: Nadia Green MD, Phone: [phone] Whole blood hemoglobin A1c/t otal hemoglobin ratio (mass fraction)Ordered By: HEALTH ASSESSMENT on 09-06-2023 HbA1c (Bld) [Mass fraction] 5.2 % 3.8-5.6 [facility] Comment on above: Normal < 5.7 % Predi abetic 5.7 - 6.4 % Diabetic >or= 6.5 % Please note range changes. Laboratory - Chemistry and C hemistry - challengeOrdered By: Valdo Fuentes on 04-22-2023 Free T4 [Mass/Vol] 0.70 ng/dL 0.76-1.46 [facility] No Panel InformationOrdered By: Valdo Fuentes on 04-22-2023 Free Triiodothyronine (T3) pg/dL 2.6 pg/mL 2.18-3.98 [facility] Thyroid Stimulating Hormone (TSH) 1.73 uIU/mL 0.358-3.74 [facility] CBC W Auto Differential pane l (Bld)on 04-16-2023 Basophils (Bld) [#/Vol] 0.05 10*3/uL Normal <0.11 [facility] Comment on above: Order Comment: Speci men Type: BLOOD SPECIMEN Ordering Facility: [facility] Address: [address] [address] Performed By: #### 5 7021-8 #### [facility] CLIA [id number] [address] [place] [address] [place] Basophils/100 WBC (Bld) 0.7 % Normal [facility] Comment on above: Order Comment: Speci men Type: BLOOD SPECIMEN Ordering Facility: [facility] Address: [address] [address] Performed By: #### 5 7021-8 #### [facility] CLIA [id number] [address] [place] [address] [place] Differential cell count method Nom (Bld) Auto Normal [facility] Comment on above: Order Comment: Speci men Type: BLOOD SPECIMEN Ordering Facility: [facility] Address: [address] [address] Performed By: #### 5 7021-8 #### [facility] CLIA [id number] [address] [place] [address] [place] Eosinophils (Bld) [#/Vol] 0.04 10*3/uL Normal <0.46 [facility] Comment on above: Order Comment: Speci men Type: BLOOD SPECIMEN Ordering Facility: [facility] Address: [address] [place] [address] Performed By: #### 5 7021-8 #### [facility] CLIA [id number] [address] [place] [address] [place] Eosinophils/100 WBC (Bld) 0.6 % Normal [facility] Comment on above: Order Comment: Speci men Type: BLOOD SPECIMEN Ordering Facility: [facility] Address: [address] [place] [address] Performed By: #### 5 7021-8 #### [facility] CLIA [id number] [address] [place] [address] [place] Erythrocyte distribution width (RBC) [Ratio] 12.5 % Normal 11.5-15.0 [facility] Comment on above: Order Comment: Speci men Type: BLOOD SPECIMEN Ordering Facility: [facility] Address: [address] [address] Performed By: #### 5 7021-8 #### [facility] CLIA [id number] [address] [place] [address] [place] Hematocrit (Bld) [Volume fraction] 41.4 % Normal 39.0-51.0 [facility] Comment on above: Order Comment: Speci men Type: BLOOD SPECIMEN Ordering Facility: [facility] Address: [address] [address] Performed By: #### 5 7021-8 #### [facility] CLIA [id number] [address] [place] [address] [place] Hemoglobin (Bld) [Mass/Vol] 14.1 g/dL Normal 13.0-17.0 [facility] Comment on above: Order Comment: Speci men Type: BLOOD SPECIMEN Ordering Facility: [facility] Address: [address] [address] Performed By: #### 5 7021-8 #### [facility] CLIA [id number] [address] [place] [address] [place] Immature granulocytes (Bld) [#/Vol] 10*3/uL Normal <0.10 [facility] Comment on above: Order Comment: Speci men Type: BLOOD SPECIMEN Ordering Facility: [facility] Address: [address] [address] Performed By: #### 5 7021-8 #### [facility] CLIA [id number] [address] [place] [address] [place] Immature granulocytes/100 WBC (Bld) 0.3 % Normal [facility] Comment on above: Order Comment: Speci men Type: BLOOD SPECIMEN Ordering Facility: [facility] Address: [address] [address] Performed By: #### 5 7021-8 #### [facility] CLIA [id number] [address] [place] [address] [place] Lymphocytes (Bld) [#/Vol] 1.16 10*3/uL Normal 1.00-4.00 [facility] Comment on above: Order Comment: Speci men Type: BLOOD SPECIMEN Ordering Facility: [facility] Address: [address] [address] Performed By: #### 5 7021-8 #### [facility] CLIA [id number] [address] [place] [address] [place] Lymphocytes/100 WBC (Bld) 17.0 % Normal [facility] Comment on above: Order Comment: Speci men Type: BLOOD SPECIMEN Ordering Facility: [facility] Address: [address] [place] [address] Performed By: #### 5 7021-8 #### [facility] CLIA [id number] [address] [place] [address] [place] MCH (RBC) [Entitic mass] 29.6 pg Normal 26.0-34.0 [facility] Comment on above: Order Comment: Speci men Type: BLOOD SPECIMEN Ordering Facility: [facility] Address: [address] [place] [address] Performed By: #### 5 7021-8 #### [facility] CLIA [id number] [address] [place] [address] [place] MCHC (RBC) [Mass/Vol] 34.1 g/dL Normal 30.5-36.0 [facility] Comment on above: Order Comment: Speci men Type: BLOOD SPECIMEN Ordering Facility: [facility] Address: [address] [address] Performed By: #### 5 7021-8 #### [facility] CLIA [id number] [address] [place] [address] [place] MCV (RBC) [Entitic vol] 86.8 fL Normal 80.0-100.0 [facility] Comment on above: Order Comment: Speci men Type: BLOOD SPECIMEN Ordering Facility: [facility] Address: [address] [place] [address] Performed By: #### 5 7021-8 #### [facility] CLIA [id number] [address] [place] [address] [place] Monocytes (Bld) [#/Vol] 0.31 10*3/uL Normal <0.87 [facility] Comment on above: Order Comment: Speci men Type: BLOOD SPECIMEN Ordering Facility: [facility] Address: [address] [place] [address] Performed By: #### 5 7021-8 #### [facility] CLIA [id number] [address] [place] [address] [place] Monocytes/100 WBC (Bld) 4.6 % Normal [facility] Comment on above: Order Comment: Speci men Type: BLOOD SPECIMEN Ordering Facility: [facility] Address: [address] [place] [address] Performed By: #### 5 7021-8 #### [facility] CLIA [id number] [address] [place] [address] [place] Neutrophils (Bld) [#/Vol] 5.23 10*3/uL Normal 1.45-7.50 [facility] Comment on above: Order Comment: Speci men Type: BLOOD SPECIMEN Ordering Facility: [facility] Address: [address] [place] [address] Performed By: #### 5 7021-8 #### [facility] CLIA [id number] [address] [place] [address] [place] Neutrophils/100 WBC (Bld) 76.8 % Normal [facility] Comment on above: Order Comment: Speci men Type: BLOOD SPECIMEN Ordering Facility: [facility] Address: [address] [place] [address] Performed By: #### 5 7021-8 #### [facility] CLIA [id number] [address] [place] [address] [place] Nucleated RBC (Bld) [#/Vol] 10*3/uL Normal <0.01 [facility] Comment on above: Order Comment: Speci men Type: BLOOD SPECIMEN Ordering Facility: [facility] Address: [address] [address] Performed By: #### 5 7021-8 #### [facility] CLIA [id number] [address] [place] [address] [place] Nucleated RBC/100 WBC (Bld) [Ratio] 0.0 /100 WBC Normal [facility] Comment on above: Order Comment: Speci men Type: BLOOD SPECIMEN Ordering Facility: [facility] Address: [address] [address] Performed By: #### 5 7021-8 #### [facility] CLIA [id number] [address] [place] [address] [place] Platelet mean volume (Bld) [Entitic vol] 10.7 fL Normal 9.0-12.7 [facility] Comment on above: Order Comment: Speci men Type: BLOOD SPECIMEN Ordering Facility: [facility] Address: [address] [address] Performed By: #### 5 7021-8 #### [facility] CLIA [id number] [address] [place] [address] [place] Platelets (Bld) [#/Vol] 178 10*3/uL Normal 150-400 [facility] Comment on above: Order Comment: Speci men Type: BLOOD SPECIMEN Ordering Facility: [facility] Address: [address] Performed By: #### 5 7021-8 #### [facility] CLIA [id number] [address] [place] [address] [place] RBC (Bld) [#/Vol] 4.77 10*6/uL Normal 4.20-6.00 [facility] Comment on above: Order Comment: Speci men Type: BLOOD SPECIMEN Ordering Facility: [facility] Address: [address] Performed By: #### 5 7021-8 #### [facility] CLIA [id number] [address] [id number] [place] WBC (Bld) [#/Vol] 6.81 10*3/uL Normal 3.70-11.00 [facility] Comment on above: Order Comment: Speci men Type: BLOOD SPECIMEN Ordering Facility: [facility] Address: [place] [address] Performed By: #### 5 7021-8 #### [facility] CLIA [id number] [address] [place], [place] [address] [place] CT BRAIN WO IVCONon 04-16-[address] BRAIN WO IVCON * * *Final Report* * * DATE OF EXAM: Apr 16 2023 8:34PM [facility] 0504 - CT BRAIN WO IVCON / PROCEDURE REASON: Mental status change, unknown cause * * * * Physician Interpretation * * * * EXAMINATION: CT BRAIN WO IVCON CLINICAL HISTORY: Syncope. TECHNIQUE: Serial axial images without IV contrast were obtained from the vertex to the foramen magnum. MQ: CTBWO_3 CT Radiation dose: Integrated Dose-Length Product (DLP) for this visit = 613.63/770.97 mGy*cm CT Dose Reduction Employed: Automated exposure control(AEC) and iterative recon COMPARISON: None available FINDINGS: There is no abnormal extra-axial fluid, intracranial hemorrhage, mass, mass effect, or midline shift. The ventricular system is unremarkable. Cisterns are patent. Grande-white differentiation is maintained. Paranasal sinuses and mastoid air cells are unopacified. Calvarium is intact. IMPRESSION: No acute intracranial findings. Foundry Metallurgist: PSCB Transcribe Date/Time: Apr 16 2023 8:37P Dictated by : TOBI TROTTER MD This examination was interpreted and the report reviewed and electronically signed by: TOBI TROTTER MD on Apr 16 2023 9:00PM EST [id number] Normal [facility] CT CHEST W IVCON PEon 2022 CT CHEST W IVCON PE * * *Final Report* * * DATE OF EXAM: Apr 16 2023 8:34PM [facility] 0540 - CT CHEST W IVCON PE / PROCEDURE REASON: Pulmonary embolism (PE) suspected, high prob * * * * Physician Interpretation * * * * EXAMINATION: CT CHEST W IVCON PE CLINICAL HISTORY: Syncope. TECHNIQUE: CT acquisition of the chest following intravenous administration of iodinated contrast. Sagital and coronal reformats generated in addition to MIPS and thin sections. MQ: CTCP_5 Contrast: 100 mL Visipaque [address] Radiation dose: Integrated Dose-length product (DLP) for this visit = 613.63/770.97 mGy*cm CT Dose Reduction Employed: Automated exposure control(AEC) and iterative recon COMPARISON: No relevant prior studies available. FINDINGS: Marked pectus excavatum with smallest AP dimension of 2 cm. There are no filling defects in the main pulmonary arteries, lobar, or segmental branches to suggest pulmonary embolic disease. 9 mm left thyroid hypodensity. The aorta and great vessels are normal in caliber. Heart size is normal without pericardial effusion. Heart is displaced left, IVC is midline and deep to the xiphoid process. There are no significant mediastinal, hilar, axillary or supraclavicular lymph nodes by size criteria. The tracheobronchial tree is patent. Lungs are without consolidation, pleural effusion, or pneumothorax bilaterally. Limited visualization of the upper abdomen demonstrates no significant abnormality. No aggressive osseous lesions. IMPRESSION: 1. No CT evidence of pulmonary embolism. 2. Marked pectus excavatum with leftward shift of the heart and IVC interposed between xiphoid process and spine. 3. A solitary 9 mm thyroid nodule in the left lobe has no suspicious features. In the absence of clinical risk factors for thyroid cancer, this finding is highly likely benign and no additional imaging or follow-up is recommended. Recommendations for thyroid nodule management based on Arteaga et al., J Am Sunshine Radiol 12:143-50 (2015). Foundry Metallurgist: KARIE Transcribe Date/Time: Apr 16 2023 8:36P Dictated by : TOBI TROTTER MD This examination was interpreted and the report reviewed and electronically signed by: TOBI TROTTER MD on Apr 16 2023 9:05PM EST [id number] Normal [facility] Comprehensive metabolic 2000 panelon 04-16-2023 Albumin [Mass/Vol] 4.1 g/dL Normal 3.2-5.0 [facility] Comment on above: Order Comment: Speci men Type: BLOOD SPECIMEN Ordering Facility: [facility] Address: [address] [id number] Performed By: #### 2 4323-8, #### [facility] CLIA [id number] [address] [place] [address] [place] ALP [Catalytic activity/Vol] 38 U/L Low 45-117 [facility] Comment on above: Order Comment: Speci men Type: BLOOD SPECIMEN Ordering Facility: [facility] Address: [address] [place] [address] Performed By: #### 2 4323-8, #### [facility] CLIA [id number] [address] [place] [address] [place] ALT [Catalytic activity/Vol] 32 U/L Normal 13-61 [facility] Comment on above: Order Comment: Graciai men Type: BLOOD SPECIMEN Ordering Facility: [facility] Address: [address] [place] [address] Result Comment: Resu lts may be falsely depressed after the administration of Sulfasalazine and/or Sulfapyridine. Performed By: #### 2 4323-8, #### [facility] CLIA [id number] [address] [place] [address] [place] Anion gap [Moles/Vol] 7 mmol/L Normal 5-16 [facility] Comment on above: Order Comment: Speci men Type: BLOOD SPECIMEN Ordering Facility: [facility] Address: [address] [place] [address] Performed By: #### 2 4323-8, #### [facility] CLIA [id number] [address] [place] [address] [place] AST [Catalytic activity/Vol] 24 U/L Normal 8-34 [facility] Comment on above: Order Comment: Speci men Type: BLOOD SPECIMEN Ordering Facility: [facility] Address: [address] [place] [address] Result Comment: Resu lts may be falsely depressed after the administration of Sulfasalazine and/or Sulfapyridine. Performed By: #### 2 4323-8, #### [facility] CLIA [id number] [address] [place], [place] [address] [place] Bilirubin [Mass/Vol] 0.8 mg/dL Normal 0.2-1.0 [facility] Comment on above: Order Comment: Speci men Type: BLOOD SPECIMEN Ordering Facility: [facility] Address: [address] [place] [address] Performed By: #### 2 43210-06, #### [facility] CLIA [id number] [address] [place] [address] [place] Calcium [Mass/Vol] 9.3 mg/dL Normal 8.5-10.5 [facility] Comment on above: Order Comment: Speci men Type: BLOOD SPECIMEN Ordering Facility: [facility] Address: [address] [place] [address] Performed By: #### 2 43210-06, #### [facility] CLIA [id number] [address] [place] [address] [place] Chloride [Moles/Vol] 104 mmol/L Normal 98-107 [facility] Comment on above: Order Comment: Speci men Type: BLOOD SPECIMEN Ordering Facility: [facility] Address: [address] [place] [address] Performed By: #### 2 43210-06, #### [facility] CLIA [id number] [address] [place] [address] [place] CO2 [Moles/Vol] 28 mmol/L Normal 21-32 [facility] Comment on above: Order Comment: Speci men Type: BLOOD SPECIMEN Ordering Facility: [facility] Address: [address] [place] [address] Performed By: #### 2 43238, #### [facility] CLIA [id number] [address] [place], [place] [address] [place] Creatinine [Mass/Vol] 1.08 mg/dL Normal 0.50-1.40 [facility] Comment on above: Order Comment: Romero vickers Type: BLOOD SPECIMEN Ordering Facility: [facility] Address: [address] [place] [address] Result Comment: Felicia ents receiving either N-Acetylcysteine (NAC) or Metamizole prior to venipuncture, may have falsely depressed results. Performed By: #### 2 4323-8, #### [facility] CLIA [id number] [address] [place] [address] [place] Creatinine and Glomerular filtration rate.predicted panel (S/P/Bld) 85 mL/min/1.73m??? Normal >=60 [facility] Comment on above: Order Comment: Romero vickers Type: BLOOD SPECIMEN Ordering Facility: [facility] Address: [address] [place], [place] [id number] Result Comment: Macy mated Glomerular Filtration Rate (eGFR) is calculated using the 2020 CKD-EPI creatinine equation. This equation utilizes serum creatinine, sex, and age as parameters. The creatinine assay has traceable calibration to isotope dilution-mass spectrometry. Refer to KDIGO guidelines for clinical interpretation. In patients with unstable renal function, e.g. those with acute kidney injury, the eGFR may not accurately reflect actual GFR. Performed By: #### 2 4323-8, #### [facility] CLIA [id number] [address] [place] [address] [place] Glucose [Mass/Vol] 145 mg/dL High 70-100 [facility] Comment on above: Order Comment: Romero vickers Type: BLOOD SPECIMEN Ordering Facility: [facility] Address: [address] [place] [address] Result Comment: The [place] Diabetes [employer] (ADA) provides guidance for cutoff values for fasting glucose and random glucose. The ADA defines fasting as no caloric intake for at least 8 hours. Fasting plasma glucose results between 100 to 125 mg/dL indicate increased risk for diabetes (prediabetes). Fasting plasma glucose results greater than or equal to 126 mg/dL meet the criteria for diagnosis of diabetes. In the absence of unequivocal hyperglycemia, results should be confirmed by repeat testing. In a patient with classic symptoms of hyperglycemia or hyperglycemic crisis, random plasma glucose results greater than or equal to 200 mg/dL meet the criteria for diagnosis of diabetes. Reference: Standards of Medical Care in Diabetes 2016, [place] [employer] Association. Diabetes Care. 2016.39(Suppl 1). Results may be falsely elevated after the administration of Sulfapyridine. Results may be falsely depressed after the administration of Sulfasalazine. Performed By: #### 2 4323-8, #### [facility] CLIA [id number] [address] [place] [address] [place] Potassium [Moles/Vol] 4.0 mmol/L Normal 3.5-5.1 [facility] Comment on above: Order Comment: Graciai alee Type: BLOOD SPECIMEN Ordering Facility: [facility] Address: [address] [place] [address] Performed By: #### 2 4328, #### [facility] CLIA [id number] [address] [place] [address] [place] Protein [Mass/Vol] 6.5 g/dL Normal 6.0-8.5 [facility] Comment on above: Order Comment: Graciai alee Type: BLOOD SPECIMEN Ordering Facility: [facility] Address: [address] [place] [address] Performed By: #### 2 43210-06, #### [facility] CLIA [id number] [address] [place] [address] [place] Sodium [Moles/Vol] 139 mmol/L Normal 136-145 [facility] Comment on above: Order Comment: Speci men Type: BLOOD SPECIMEN Ordering Facility: [facility] Address: [address] [place] [address] Performed By: #### 2 43210-06, #### [facility] CLIA [id number] [address] [place], [place] [address] [place] Urea nitrogen [Mass/Vol] 17 mg/dL Normal 7-26 [facility] Comment on above: Order Comment: Speci men Type: BLOOD SPECIMEN Ordering Facility: [facility] Address: [address] [place] [address] Performed By: #### 2 4323-8, 43861-3 #### [facility] CLIA [id number] [address] [email or web address] [address] [place] ECG COMPLETEon 04-16-2023 ECG COMPLETE Ventricular Rate : 7 5 BPM Atrial Rate : 75 BPM P-R Interval : 200 ms QRS Duration : 104 ms Q-T Interval : 378 ms QTC Calculation(Bazett) : 422 ms Calculated P [place] : 70 degrees Calculated R [place] : -18 degrees Calculated T [place] : 46 degrees Sinus rhythm with Premature atrial complexes Otherwise normal ECG No previous ECGs available Confirmed by JUNI BRADFORD MD ([id number]) on 04/29/2023 6:36:50 PM NAME : LAVINIA URIOSTEGUI PID : [id number] : 1975 Gender : Male Race : ORD : [id number] Procedure Date : Apr 16 2023 19:59:38 Edit Date : Apr 29 2023 18:36:52 Diagnosis: Sinus rhythm with Premature atrial complexes Otherwise normal ECG No previous ECGs available Confirmed by JUNI BRADFORD MD ([id number]) on 04/29/2023 6:36:50 PM Test Reason : STAT Location : 0 : ED 44 Overread By : JUNI BRADFORD MD Edited By : JUNI BRADFORD MD Referred By : , Acquired by : VANDANA [facility] ED NOTEon 04-16-2023 ED NOTE HNO ID: [id number] Author: Pola Gonzalez, Josep Service: ? Author Type: [employer] Type: ED Notes Filed: 04/16/2023 7:03 PM Note Text: Bed: 44-ED Expected date: 04/16/23 Expected time: Means of arrival: Apolinar BEEBE Comments: sohail [facility] ED PROV NOTEon 04-16-2023 ED PROV NOTE HNO ID: [id number] Author: Pamela Martinez MD Service: ? Author Type: Physician Type: ED Provider Notes Filed: 04/17/2023 12:57 AM Note Text: ED Provider Note Patient Name: Lavinia Uriostegui : 1975 SERVICE DATE: 04/16/23 History Patient presents with: Syncope: Pt comes from [employer]. Pt felt dizzy/lightheaded and was lowered to ground, possible LOC, +thinners, did not hit head. Pt was diaporetic/pale upon EMS arrival.Pt hx of blood clot LLE from November. Taking xeralto. History provided by: Patient and EMS personnel interpreter and translator used: Harper Uriostegui is a 47 year old male who presents to the ED for further evaluation after syncopal episode. The patient was at a wedding. He was waiting in line for food when he began to feel dizzy/lightheaded. He said he became nauseated and diaphoretic. The next thing he remembers is waking up on the floor. Bystanders lowered him to the ground. The patient did not fall and did not hit his head. He denies any neck pain. He is back to his baseline. EMS said the patient was diaphoretic and pale upon arrival. The patient has a history of left lower extremity DVT diagnosed 4 months ago. He has been taking Xarelto. He denies any bleeding. He denies any chest pain. No palpitations. No shortness of breath. He has no abdominal pain. He states he has never passed out before. He says he has not had much to eat today. He has no other complaints at this time. His states he seems a little bit off. ROS Review of Systems All other systems reviewed and are negative. No pertinent positive findings other than noted in HPI, MDM or ED course. PAST MEDICAL HISTORY Diagnosis Date Deep vein blood clot of left lower extremity (HCC) Essential hypertension, benign HLD (hyperlipidemia) Unspecified asthma(493.90) PAST SURGICAL HISTORY Procedure Laterality Date TONSILLECTOMY PRIMARY/SECONDARY FAMILY HISTORY Problem Relation Age of Onset Heart Paternal Grandmother Hypertension Mother Hypertension Maternal Grandmother Social History Tobacco Use Smoking status: Former Types: Cigarettes Quit date: 2011 Years since quittin.7 Smokeless tobacco: Current Types: Snuff Tobacco comments: occasional Vaping Use Vaping Use: Never used Substance and Sexual Activity Alcohol use: Not Currently Drug use: Not Currently Sexual activity: Not on file ALLERGIES Allergen Reactions Bactrim [Sulfametho* Rash Records on file/review of medical records: Nursing/triage notes and assessments as well as vitals were reviewed and incorporated Physical Exam Vitals [04/16/23 1912] BP Pulse Temp Temp src Resp SpO2 Weight Height 117/72 73 36.4 ?C (97.6 ?F) Oral 16 98 % 81.6 kg (180 lb) 1.905 m (6' 3) Physical Exam Vitals and nursing note reviewed. Constitutional: Appearance: Normal appearance. HENT: Head: Normocephalic and atraumatic. Right Ear: External ear normal. Left Ear: External ear normal. Nose: Nose normal. Mouth/Throat: Mouth: Mucous membranes are moist. Pharynx: Oropharynx is clear. Eyes: Extraocular Movements: Extraocular movements intact. Conjunctiva/sclera: Conjunctivae normal. Pupils: Pupils are equal, round, and reactive to light. Cardiovascular: Rate and Rhythm: Normal rate and regular rhythm. Pulses: Normal pulses. Heart sounds: Normal heart sounds. Pulmonary: Effort: Pulmonary effort is normal. Breath sounds: Normal breath sounds. Abdominal: General: Abdomen is flat. Bowel sounds are normal. Palpations: Abdomen is soft. There is no mass. Tenderness: There is no abdominal tenderness. Musculoskeletal: General: Normal range of motion. Cervical back: Normal range of motion and neck supple. Skin: General: Skin is warm and dry. Capillary Refill: Capillary refill takes less than 2 seconds. Neurological: General: No focal deficit present. Mental Status: He is alert and oriented to person, place, and time. GCS: GCS eye subscore is 4. GCS verbal subscore is 5. GCS motor subscore is 6. Cranial Nerves: Cranial nerves 2-12 are intact. Sensory: Sensation is intact. Motor: Motor function is intact. Coordination: Coordination is intact. Psychiatric: Mood and Affect: Mood normal. Diagnostic Testing ED Labs Ordered and Reviewed COMP METABOLIC PANEL - Abnormal; Notable for the following components: Result Value Ref Range Alkaline Phosphatase 38 (*) 45 - 117 U/L Glucose 145 (*) 70 - 100 mg/dL All other components within normal limits HIGH SENSITIVITY TROPONIN I - Normal MAGNESIUM BLD - Normal CBC + DIFF Radiology/images: CT CHEST W IVCON PE Final Result IMPRESSION: 1. No CT evidence of pulmonary embolism. 2. Marked pectus excavatum with leftward shift of the heart and IVC interposed between xiphoid process and spine. 3. A solitary 9 mm thyroid nodule in the left lobe has no suspicious features. In the absence of clinical (more content not included)... Normal [facility] HIGH SENSITIVITY TROPONIN Io n 04-16-2023 Tropinin I.cardiac panel High sensitivity method 3.5 pg/mL Normal 0.0-54.0 [facility] Comment on above: Order Comment: Romero vickers Type: BLOOD SPECIMEN Ordering Facility: [facility] Address: [address] [place] [address] Result Comment: This assay uses different antibodies than our current assay, and assays, even by the same hands assembler may recognize different regions of the antibody and cannot be used interchangeably. Expect results of this assay to run higher than the previous assay. Performed By: #### H STROP #### [facility] CLIA [id number] [address] [place] [address] [place] Magnesium SerPl-mCncon 04-16 Magnesium [Mass/Vol] 2.0 mg/dL Normal 1.6-2.6 [facility] Comment on above: Order Comment: Romero vickers Type: BLOOD SPECIMEN Ordering Facility: [facility] Address: [address] [place] [address] Performed By: #### 2 4323-8, 24853-0 #### [facility] CLIA [id number] [address] [place] [address] [place] Absolute lymphocyte countOrd ered By: Valdo Fuentes on 03-25-2023 Lymphocytes Auto (Unsp spec) [#/Vol] 1.57 10*3/uL 0.83-4.51 [facility] Basophil percentageOrdered B y: Valdo Fuentes on 03-25-2023 Basophils/100 WBC (Bld) 1.0 % 0-1 [facility] Chloride [Moles/Vol] 105 mmol/L 98-107 [facility] Cholesterol [Mass/Vol] 120 mg/dL <200 [facility] Comment on above: <200 mg/dL Desirable 200-240 mg/dL Borderline >240 mg/dL High Risk Eosinophils/100 WBC (Bld) 2.0 % 0-5 [facility] Glucose [Mass/Vol] 91 mg/dL 74-106 [facility] Neutrophils (Bld) [#/Vol] 3.0 10*3/uL 2.0-7.7 [facility] Neutrophils/100 WBC (Bld) 58.7 % 47-70 [facility] Potassium [Moles/Vol] 4.3 mmol/L 3.5-5.1 [facility] Sodium [Moles/Vol] 137 mmol/L 136-145 [facility] Testosterone [Mass/Vol] 1275.27 ng/dL [facility] Comment on above: CENTRAL 90% REFERENC E RANGES MALE AGE <50 197.44 - 669.58 ng/dL MALE AGE > or = 50 187.72 - 684.19 ng/dL FEMALE AGE <50 8.38 - 35.01 ng/dL FEMALE AGE > or = 50 <7.00 - 35.92 ng/dL Effective as of 02/24/21 Triglyceride [Mass/Vol] 71 mg/dL <199 [facility] Comment on above: The drugs N-Acetylcy steine and Metamizole may falsely depress this assay.Serum Triglycerides Reference Interval Normal <150 mg/dL Borderline high 150 - 199 mg/dL High 200 - 499 mg/dL Very High > or = 500 mg/dL WBC (Bld) [#/Vol] 5.1 10*3/uL 4.4-11.0 [facility] Blood erythrocytes count (nu mber/volume)Ordered By: Valdo Fuentes on 03-25-2023 RBC (Bld) [#/Vol] 5.18 10*6/uL 4.6-6.2 [facility] Blood hemoglobin measurement (mass/volume)Ordered By: aVldo Fuentes on 03-25-2023 Hemoglobin (Bld) [Mass/Vol] 15.2 g/dL 13.0-16.5 [facility] Blood lymphocytes/100 leukoc ytesOrdered By: Valdo Fuentes on 03-25-2023 Lymphocytes/100 WBC (Bld) 31.0 % 19-41 [facility] Blood monocytes/100 leukocyt esOrdered By: Valdo Fuentes on 03-25-2023 Monocytes/100 WBC (Bld) 7.1 % 0-10 [facility] Blood platelet mean volumeOr dered By: Valdo Fuentes on 03-25-2023 Platelet mean volume (Bld) [Entitic vol] 11.2 fL 6.2-12.0 [facility] Determination of erythrocyte mean corpuscular volume (MCV)Ordered By: Valdo Fuentes on 03-25-2023 MCV (RBC) [Entitic vol] 89.8 fL 80-94 [facility] Hematocrit Auto (Bld) [Volum e fraction]Ordered By: Valdo Fuentes on 03-25-2023 Hematocrit (Bld) [Volume fraction] 46.5 % 40-54 [facility] - Chemistry and C hemistry - challengeOrdered By: Valdo Fuentes on 03-25-2023 CO2 [Moles/Vol] 29.0 mmol/L 21.0-32.0 [facility] Urea nitrogen/Creatinine [Mass ratio] 17.1 mg/mg 10-20 [facility] - Hematology and Cell countsOrdered By: Valdo Fuentes on 03-25-2023 Erythrocyte distribution width (RBC) [Entitic vol] 42.8 fL 35.1-43.9 [facility] Erythrocyte distribution width (RBC) [Ratio] 13.0 % 11.6-14.6 [facility] Immature granulocytes/100 WBC (Bld) 0.200 % 0.0-0.9 [facility] Comment on above: IG% - Immature Granu locytes (promyelocytes, myelocytes and metamyelocytes) > 1% indicates that a LEFT SHIFT is Present. MCH (RBC) [Entitic mass] 29.3 pg 27.0-32.0 [facility] Nucleated RBC/100 WBC (Bld) [Ratio] 0 % 0-5 [facility] MCHC Auto (RBC) [Mass/Vol]Or dered By: Valdo Fuentes on 03-25-2023 MCHC (RBC) [Mass/Vol] 32.7 g/dL 32-36 [facility] No Panel InformationOrdered By: Valdo Fuentes on 03-25-2023 Estimated GFR (MDRD) Amer 104 mL/min >60 [facility] Comment on above: GFR Calc Estimated GFR (MDRD) Non-Af Amer 86 mL/min >60 [facility] Comment on above: Non- GFR Calc Prostate Specific Antigen Screen 1.40 ng/mL 0.00-4.00 [facility] Comment on above: This test was perfor med using the TPSA assay method for theDimension chemistry system. Values obtained with differentassay methods cannot be used interchangably.When changing PSA assays in the course of monitoring apatient, additional sequential testing should be carriedout to confirm baseline values. Platelets bldOrdered By: Edith Fuentes on 03-25-2023 Platelets (Bld) [#/Vol] 211 10*3/uL 150-450 [facility] Serum or plasma calcium stacey urement (mass/volume)Ordered By: Valdo Fuentes on 03-25-2023 Calcium [Mass/Vol] 8.8 mg/dL 8.5-10.1 [facility] Serum or plasma cholesterol in HDL measurement (mass/volume)Ordered By: Valdo Fuentes on 03-25-2023 Cholesterol in HDL [Mass/Vol] 41 mg/dL >40 [facility] Comment on above: The drugs N-Acetylcy steine and Metamizole may falsely depress this assay. Reference Range HDL <40 mg/dL Low HDL Cholesterol HDL >or= 60 mg/dL High HDL Cholesterol Serum or plasma cholesterol in VLDL measurement (mass/volume)Ordered By: Valdo Fuentes on 03-25-2023 Cholesterol in VLDL [Mass/Vol] 14 mg/dL 5-40 [facility] Serum or plasma creatinine m easurement (mass/volume)Ordered By: Valdo Fuentes on 03-25-2023 Creatinine [Mass/Vol] 0.99 mg/dL 0.70-1.30 [facility] Comment on above: The validity of the calculated GFR & GFRAA in patients over 70 years has not been determined. Clinical correlation is essential. Serum or plasma low density lipoprotein (LDL) cholesterol measurement (mass/volume)Ordered By: Valdo Fuentes on 03-25-2023 Cholesterol in LDL [Mass/Vol] 65 mg/dL 0-130 [facility] Serum or plasma urea nitroge n measurement (mass/volume)Ordered By: Valdo Fuentes on 03-25-2023 Urea nitrogen [Mass/Vol] 17 mg/dL 7-18 [facility] Thin prep Papanicolaou smear with manual screeningOrdered By: Valdo Fuentes on 03-25-2023 Thin prep Papanicolaou smear with manual screening 3 5-15 [facility] Basophil percentageon 2021 Chloride [Moles/Vol] 103 mmol/L 98-[address] [facility] Work Phone: Glucose [Mass/Vol] 90 mg/dL 74-106 [facility] Work Phone: Potassium [Moles/Vol] 4.6 mmol/L 3.5-5.1 [facility] Work Phone: Sodium [Moles/Vol] 136 mmol/L 136-145 [facility] Work Phone: Testosterone [Mass/Vol] 484.01 ng/dL [facility] Work Phone: Comment on above: CENTRAL 90% REFERENC E RANGES MALE AGE <50 197.44 - 669.58 ng/dL MALE AGE > or = 50 187.72 - 684.19 ng/dL FEMALE AGE <50 8.38 - 35.01 ng/dL FEMALE AGE > or = 50 <7.00 - 35.92 ng/dL Effective as of 02/24/21 Laboratory - Chemistry and C hemistry - challengeon 03-18-2022 CO2 [Moles/Vol] 32.0 mmol/L 21.0-32.0 [facility] Work Phone: Urea nitrogen/Creatinine [Mass ratio] 11.9 mg/mg 10-20 [facility] Work Phone: No Panel Informationon 03-18 Estimated GFR (MDRD) Amer 93 mL/min >60 [facility] Work Phone: Comment on above: GFR Calc Estimated GFR (MDRD) Non-Af Amer 77 mL/min >60 [facility] Work Phone: Comment on above: Non- GFR Calc Prostate Specific Antigen Screen 1.62 ng/mL 0.00-4.00 [facility] Work Phone: Comment on above: This test was perfor med using the TPSA assay method for theMowjow chemistry system. Values obtained with differentassay methods cannot be used interchangably.When changing PSA assays in the course of monitoring apatient, additional sequential testing should be carriedout to confirm baseline values. Serum or plasma calcium stacey urement (mass/volume)on 03-18-2022 Calcium [Mass/Vol] 10.0 mg/dL 8.5-10.1 [facility] Work Phone: Serum or plasma creatinine m easurement (mass/volume)on 03-18-2022 Creatinine [Mass/Vol] 1.09 mg/dL 0.70-1.30 [facility] Work Phone: Comment on above: The validity of the calculated GFR & GFRAA in patients over 70 years has not been determined. Clinical correlation is essential. Serum or plasma urea nitroge n measurement (mass/volume)on 03-18-2022 Urea nitrogen [Mass/Vol] 13 mg/dL -18 [facility] Work Phone: Thin prep Papanicolaou smear with manual screeningon 03-18-2022 Thin prep Papanicolaou smear with manual screening 1 5-15 [facility] Work Phone: PROGRESSon 11-24-2019 PROGRESS HNO ID: [id number] Author: Angela Mathias (Rt) Kiel Pickens Service: ? Author Type: Social Worker School Type: Progress Notes Filed: 11/24/2019 10:53 AM Note Text: Radiology Service Progress Note PATIENT NAME: Lavinia Uriostegui DATE OF SERVICE: November 24, 2019 TIME: 10:52 AM PATIENT IDENTITY VERIFICATION COMPLETED USING TWO (2) IDENTIFIERS: Name and Date of confirmed by patient verbally. FALL SCREENING: Has the patient had 2 falls in the last year or 1 fall with injury or currently using an Ambulatory Assistive Device (Walker, Cane, Wheelchair, Crutches, etc.)? No PATIENT GENDER DATA: Male PATIENT RELEVANT IMPLANT DATA REVIEWED: Not Applicable RADIOLOGY DEPARTMENT: General X-ray: Exam(s) Completed: Lower Extremity X-Ray(s): Knee, AP / Lat / Merchant Right: PERIPHERAL IV DATA: Not applicable SIGNED BY: RT Sherri November 24, 2019 10:52 AM Normal [facility] XR KNEE 3V AP/LAT/MERCHANT R Ton 11-24-2019 XR KNEE 3V AP/LAT/MERCHANT RT * * *Final Report* * * DATE OF EXAM: Nov 24 2019 10:52AM WOX [id number] - XR KNEE 3V AP/LAT/MERCHANT RT / PROCEDURE REASON: RIGHT KNEE PAIN * * * * Physician Interpretation * * * * EXAMINATION: XR KNEE 3V AP/LAT/MERCHANT RT CLINICAL HISTORY: pt states pain and swelling anterior right knee around the patella area denies any inj Technique: XR KNEE 3V AP/LAT/MERCHANT RT -- RIGHT with 3 views on 3 images Comparison: None RESULT: No fracture or dislocation. Mild to moderate medial compartment joint space narrowing with early subchondral sclerosis and small osteophytes. No knee effusion. IMPRESSION: Degenerative changes right knee without acute osseous findings. Foundry Metallurgist: PSCB Transcribe Date/Time: Nov 24 2019 4:12P Dictated by : ETHAN MORA MD This examination was interpreted and the report reviewed and electronically signed by: ETHAN MORA MD on Nov 24 2019 4:13PM EST [id number] Normal [facility] Vital Signs Date Time Vital Sign Value Performing Clinician Faci lity 12-20-2024 15:34-0400 Body temperature 98.6 [degF] Dr. Valdo Fuentes MD Work Phone: [facility] 12-20-2024 15:34-0400 Body weight 93.[address] Valdo Fuentes MD Work Phone: [facility] 12-20-2024 15:34-0400 Diastolic blood pressure 94 mm[Hg] Dr. Valdo Fuentes MD Work Phone: [facility] 12-20-2024 15:34-0400 Heart rate 88 /min Dr. Vlado Fuentes MD Work Phone: [facility] 12-20-2024 15:34-0400 Respiratory rate 18 /min Dr. Valdo Fuentes MD Work Phone: [facility] 12-20-2024 15:34-0400 SaO2% (BldA) [Mass fraction] 97 % Dr. Valdo Fuentes MD Work Phone: [facility] 12-20-2024 15:34-0400 Systolic blood pressure 152 mm[Hg] Dr. Valdo Fuentes MD Work Phone: [facility] 10-23-2024 13:53-0400 Body temperature 98.9 [degF] Dr. Valdo Fuentes MD Work Phone: [facility] 10-23-2024 13:53-0400 Body weight 92.[address] Valdo Fuentes MD Work Phone: [facility] 10-23-2024 13:53-0400 Diastolic blood pressure 88 mm[Hg] Dr. Valdo Fuentes MD Work Phone: [phone] [place] [address] 10-23-2024 13:53-0400 Heart rate 71 /min Dr. Valdo Fuentes MD Work Phone: [facility] 10-23-2024 13:53-0400 Respiratory rate 16 /min Dr. Valdo Fuentes MD Work Phone: [facility] 10-23-2024 13:53-0400 SaO2% (BldA) [Mass fraction] 96 % Dr. Valdo Fuentes MD Work Phone: [facility] 10-23-2024 13:53-0400 Systolic blood pressure 140 mm[Hg] Dr. Valdo Fuentes MD Work Phone: [facility] 12-06-2023 14:59-0400 Body temperature 97.7 [degF] Dr. Valdo Fuentes Work Phone: [facility] 12-06-2023 14:59-0400 Diastolic blood pressure 96 mm[Hg] Dr. Valdo Fuentes Work Phone: [facility] 12-06-2023 14:59-0400 Heart rate 56 /min Dr. Valdo Fuentes Work Phone: [facility] 12-06-2023 14:59-0400 Respiratory rate 16 /min Dr. Valdo Fuentes Work Phone: [facility] 12-06-2023 14:59-0400 SaO2% (BldA) [Mass fraction] 99 % Dr. Valdo Fuentes Work Phone: [facility] 12-06-2023 14:59-0400 Systolic blood pressure 130 mm[Hg] Dr. Valdo Fuentes Work Phone: [facility] 12-06-2023 09:48-0400 Body height 190.[address] Valdo Fuentes Work Phone: [facility] 12-06-2023 09:48-0400 Body mass index (BMI) [Ratio] 22.8 kg/m2 Dr. Valdo Fuentes Work Phone: [facility] 12-06-2023 09:48-0400 Body weight [address] Valdo Fuentes Work Phone: [facility] 10-05-2023 11:10-0500 Body temperature 98 [degF] Dr. Valdo Fuentes Work Phone: [facility] 10-05-2023 11:10-0500 Body weight 84.[address] Valdo Fuentes Work Phone: [facility] 10-05-2023 11:10-0500 Diastolic blood pressure 96 mm[Hg] Dr. Valdo Fuentes Work Phone: [facility] 10-05-2023 11:10-0500 Heart rate 65 /min Dr. Valdo Fuentes Work Phone: [facility] 10-05-2023 11:10-0500 Respiratory rate 16 /min Dr. Valdo Fuentse Work Phone: [facility] 10-05-2023 11:10-0500 SaO2% (BldA) [Mass fraction] 99 % Dr. Valdo Fuentes Work Phone: [facility] 10-05-2023 11:10-0500 Systolic blood pressure 138 mm[Hg] Dr. Valdo Fuentes Work Phone: [facility] 09-29-2023 09:03-0500 Body height 193.[address] Valdo Fuentes Work Phone: [facility] 09-29-2023 09:03-0500 Body weight 85.[address] Valdo Fuentes Work Phone: [facility] 09-28-2023 08:46-0500 Body mass index (BMI) [Ratio] 22.8 kg/m2 Dr. Valdo Fuentes Work Phone: [facility] 09-05-2023 15:57-0500 Body height 191.[address] Valdo Fuentes Work Phone: [facility] 09-05-2023 15:57-0500 Body mass index (BMI) [Ratio] 23.1 kg/m2 Dr. Valdo Fuentes Work Phone: [facility] 09-05-2023 15:57-0500 Body temperature 98.6 [degF] Dr. Valdo Fuentes Work Phone: [facility] 09-05-2023 15:57-0500 Body weight 85.[address] Valdo Fuentes Work Phone: [facility] 09-05-2023 15:57-0500 Diastolic blood pressure 94 mm[Hg] Dr. Valdo Fuentes Work Phone: [facility] 09-05-2023 15:57-0500 Heart rate 62 /min Dr. Valdo Fuentes Work Phone: [facility] 09-05-2023 15:57-0500 Respiratory rate 16 /min Dr. Valdo Fuentes Work Phone: [facility] 09-05-2023 15:57-0500 SaO2% (BldA) [Mass fraction] 99 % Dr. Valdo Fuentes Work Phone: [facility] 09-05-2023 15:57-0500 Systolic blood pressure 148 mm[Hg] Dr. Valdo Fuentes Work Phone: [facility] Encounters Encounter Date Encounter Type Care Provider Facility Start: 01-18-2025 End: 01-18-[address] Valdo Fuentes MD Work Phone: [facility] Work Phone: Start: 01-18-2025 End: 01-18-[address] Vandana Crowe MD -[facility] Work Phone: Start: 01-18-2025 End: 01-18-2025 ambulatory Vandana Crowe Facility:[facility] Start: 12-20-2024 End: 12-20-[address] Junaid Whitney MD -[facility] Work Phone: Start: 12-20-2024 End: 12-20-2024 ambulatory Valdo Fuentes Facility:[facility] Start: 11-28-2024 ambulatory Junaid Whitney Facility:[facility] Start: 11-28-2024 Non-patient / Non-visit Dr. Junaid julian MD -[facility] Start: 11-28-2024 End: 11-28-2024 Patient encounter procedure Quynh Dupree PA -[facility] Work Phone: Start: 11-28-2024 End: 11-28-2024 ambulatory Quynh Dupree Facility:[facility] Start: 10-23-2024 End: 10-23-2024 Patient encounter procedure Quynh Dupree PA -[facility] Work Phone: Start: 10-23-2024 End: 10-23-2024 ambulatory Valdo Fuentes Facility:[facility] Start: 10-01-2024 Non-patient / Non-visit Dr. Junaid julian MD -[facility] Start: 10-01-2024 End: 10-01-[address] Valdo Fuentes MD Work Phone: [facility] Work Phone: Start: 10-01-2024 End: 10-01-2024 Patient encounter procedure Quynh Dupree PA -Card[facility] Services Work Phone: Start: 10-01-2024 End: 10-01-2024 ambulatory Quynh Dupree Facility:[facility] Start: 09-21-2024 Registered Referred [facility] Work Phone: Start: 09-21-2024 ambulatory Health Risk Assessment Facility:[facility] Start: 09-21-2024 ambulatory Health Risk Assessment Facility:[facility] Start: 05-16-2024 End: 05-16-2024 ambulatory Valdo Fuentes Facility:[facility] Start: 04-24-2024 Encounter for genera l adult medical examination without abnormal findings Valdo Fuentes [facility] Start: 04-04-2024 End: 04-04-2024 ambulatory Valdo Fuentes Facility:[facility] Start: 03-23-2024 ambulatory Valdo Fuentes Facility:[facility] Start: 03-23-2024 End: 03-23-2024 ambulatory Valdo Fuentes Facility:[facility] Start: 12-06-2023 Non-patient / Non-visit Dr. Jose Fuentes Work Phone: [facility] Start: 12-06-2023 End: 12-06-2023 Admission to same day surgery center Dr. Valdo Fuentes Work Phone: [facility] Start: 12-06-2023 End: 12-06-[address] Valdo Fuentes Work Phone: [facility] Work Phone: Start: 11-08-2023 Non-patient / Non-visit Dr. Jose Fuentes Work Phone: [facility] Start: 11-08-2023 End: 11-08-[address] Valdo Fuentes Work Phone: [facility] Work Phone: Start: 11-08-2023 End: 11-08-[address] Valdo Fuentes Work Phone: [facility]-Cardiovascula r Services Work Phone: Start: 10-24-2023 Non-patient / Non-visit Dr. Jose Fuentes Work Phone: [facility] Start: 10-24-2023 End: 10-24-[address] Valdo Fuentes Work Phone: [facility] Work Phone: Start: 10-24-2023 End: 10-24-[address] Valdo Fuentes Work Phone: [facility]Cardiov[facility] Work Phone: Start: 10-05-2023 End: 10-05-[address] Valdo Fuentes Work Phone: [facility] Work Phone: Start: 09-29-2023 Non-patient / Non-visit Dr. Jose Fuentes Work Phone: [facility] Start: 09-29-2023 End: 09-29-2023 Admission to same day surgery center Dr. Valdo Fuentes Work Phone: [facility]-Clinical Education Coordinator/Special Procedures Work Phone: Start: 09-29-2023 End: 09-29-[address] Valdo Fuentes Work Phone: [facility] Work Phone: Start: 09-12-2023 Non-patient / Non-visit Dr. Jose Fuentes Work Phone: [facility] Start: 09-12-2023 End: 09-12-[address] Valdo Fuentes Work Phone: [facility] Work Phone: Start: 09-12-2023 End: 09-12-[address] Valdo Fuentes Work Phone[facility] Work Phone: Start: 09-06-[address] Valdo camargo Work Phone: [facility] Work Phone: Start: 09-05-2023 End: 09-05-[address] Valdo Fuentes Work Phone: [facility] Work Phone: Start: 05-25-2023 End: 05-25-2023 ambulatory [facility] Work Phone: Start: 05-25-2023 End: 05-25-2023 Patient encounter procedure [facility]Cardiov[facility] Work Phone: Start: 04-28-2023 End: 04-28-2023 Patient encounter procedure [facility] Work Phone: Start: 04-22-2023 End: 04-22-2023 Patient encounter procedure [facility]Laboratory, Daniel Bender Start: 04-16-2023 End: 04-17-2023 Emergency department patient visit VALDO FUENTES Facility:[id number] Start: 03-25-2023 End: 03-25-2023 Patient encounter procedure [facility]atory, Specimen Work Phone: Start: 03-18-2022 End: 03-18-2022 ambulatory [facility] Work Phone: Start: 03-18-2022 End: 03-18-2022 Patient encounter procedure [facility] Procedures Date Procedure Procedure Detail Performing Clinician Start: 01-18-2025 In-vitro immunologic test Dr. Valdo garcia MD Work Phone: Comment on above: QuantiFERON-TB Gold Plus is a qualitativ e indirect test forM tuberculosis infection (including disease) and isintended for use in conjunction with risk assessment,radiography, and other medical and diagnostic evaluations.The QuantiFERON-TB Gold Plus result is determined bysubtracting the Nil value from either TB antigen (Ag)value. The Mitogen tube serves as a control for the test. No response to M tub erculosis antigens detected.Infection with M tuberculosis is unlikely, but high riskindividuals should be considered for additional testing(ATS/IDSA/CDC Clinical Practice Guidelines, 2017). Thereference range is an Antigen minus Nil result of <0.35IU/mL.The specimen received for QuantiFERON testing was incubatedby the ordering institution. Specific procedures outlinedin our Directory of Services and in the package insert forthe QuantiFERON Gold (In Tube) test must be followed toenable for proper stimulation of cells for the productionof interferon gamma. Chemiluminescence immunoassaymethodologyPerformed at: [facility] [id number] Director: Reji Rahman PhD, Phone: [phone] Start: 04-28-2023 Magnetic resonance venography of vein of pelvis with contrast Plan of Treatment Date Care Activity Detail Author Start: 02-14-2025 ambulatory Ambulatory Facility:[facility] Start: 02-07-2025 ambulatory Ambulatory Facility:[facility] Start: 12-06-2023 Patient discharge [facility] Start: 12-06-2023 Removal of thrombus Thrombectomy (Le ft) [facility] Start: 09-29-2023 Patient discharge [facility] Patient referral [facility] Work Phone: Payers Date Payer Category Payer Self-pay [id number] 2023 Unknown [id number] 2023 Unknown [id number] Private Health Insurance [facility] [id number] Unknown [id number] 2.16.8 [id number] Unknown [id number] 2.16.8 [id number] Unknown [id number] 2.16.8 [id number] Unknown [id number] 2.16.8 [id number] Unknown [id number] 2.16.8 [id number] Unknown [id number] 2.16.8 [id number] Unknown [id number] 2.16.8 [id number] Unknown [id number] 2.16.8 [id number] Unknown [id number] 2.16.8 [id number] Unknown [id number] 2.16.8 [id number] Unknown [id number] 2.16.8 [id number] Unknown [id number] 2.16.8 [id number] Unknown [id number] 2.16.8 [id number] Unknown [id number] 2.16.8 [id number] Unknown [id number] 2.16.8 [id number] Social History Date Type Detail [facility] Work Phone: Start: 1975 Sex Assigned At Male [facility] Start: 09-05-2023 End: 12-05-2023 Tobacco smoking status [facility] Unknown if ever smoked [facility] Start: 12-05-2023 [facility] Start: 10-10-2024 Sex Male (finding) [facility] Start: 10-23-2024 [facility] Medical Equipment Procedure Code Equipment Code Equipment Origin al Text Equipment Identifier Dates Iliofemoral vein stent ()[id number] [id number] [facility] Start: 09-29-2023 Goals Date Patient Goal Desired Activity /State Mental Status Date Assessment Result Facility 12-06-2023 Cognitive function Voice/Name;Touch/Antonia valadez [facility] Work Phone: Evaluation note 03-25-2025 Note Date & Type Note Facility 10-23-2024 Evaluation note Diagnosis Onset Date Resolution Iliac vein stenosis, left acute October 23, 2024 1:29pm 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 Rep #: [id number] : 1975 48 From: Junadi Whitney MD PCP: Dr. Valdo Fuentes MD Status:REG S ND Location: [place] [address] HPI - General HPI Narrative LAVINIA URIOSTEGUI, is a 48 M who presents with painful left leg varicose veins, refractory to compression. [facility] Medical History (Updated 12/06/23 @ 12:[address] Junaid Whitney MD) Anxiety Arthritis Asthma Back pain Chewing tobacco dependence DVT (deep venous thrombosis) High cholesterol History of echocardiogram History of edema Hypertension Loss of hearing Marijuana use MVP (mitral valve prolapse) Syncope Wears glasses Home Medications omega-3 fatty acids 1,000 mg capsule 1,000 mg PO BID 09/05/23 [History Last Taken Unknown] rosuvastatin 5 mg tablet 5 mg PO DAILY 09/05/23 [History Last Taken Unknown] testosterone cypionate 100 mg/mL intramuscular oil 100 mg IM .Q3W 09/05/23 [History Last Taken Unknown] rivaroxaban 20 mg tablet (Xarelto) 20 mg PO DAILY #30 tabs 09/08/23 [Rx Last Taken 09/26/23] clopidogrel 75 mg tablet (Plavix) 75 mg PO .daily #90 tabs 09/29/23 [Rx Last Taken Unknown] Allergy/AdvReac Type Severity Reaction Status Date / Time sulfamethoxazole Allergy Intermediate Rash Verified 11/17/23 10:02 [From Bactrim] trimethoprim [From Bactrim] Allergy Intermediate Rash Verified 11/17/23 10:02 Family History Other Arthritis Cancer High cholesterol Hypertension Surgical History Hx of tonsillectomy (~1982) Social History Smoking Status: Current every day smoker tobacco type: smokeless tobacco Smokeless tobacco user: chewing tobacco alcohol intake: never ROS Constitutional Constitutional: Denies chills, fever(s), frequent falls, lethargy or weakness Eyes Eyes: Denies blind spots, change in vision or loss of vision ENT HEENT: Denies bleeding gums, hoarseness or sore throat Cardiovascular Cardiovascular: Denies abdominal pain, bluish discoloration of hand/feet, chest pain with activity, claudication, cold extremities, cyanosis, dyspnea on exertion, erythema on extremities, irregular heart rhythm, leg edema, leg ulcers, numbness in extremities or weakness in extremities Respiratory/Chest Respiratory/Chest: Denies cough, excessive phlegm production, shortness of breath at rest, shortness of breath with exertion or wheezing Gastrointestinal Gastrointestinal: Denies anorexia, change in stool character, constipation, diarrhea, melena or rectal bleeding Genitourinary Genitourinary: Denies dysuria or hematuria Musculoskeletal Musculoskeletal: Denies abnormal gait Integumentary Integumentary: Reports other Details: ; Denies erythema, non-healing lesions or wounds Neurologic Neurologic: Denies abnormal speech, focal weakness, headache(s), loss of vision,numbness, paresthesias or sensory deficit Hematologic/Lymphatic Hematologic/Lymphatic: Denies easy bleeding, easy bruising or lymphadenopathy Vital Signs Vital Signs Vital Signs: 12/06/23 09:48 12/06/23 09:48 Temperature 98.5 F Temperature Source Temporal Pulse Rate 57 L Respiratory Rate 16 Respiratory Pattern Normal Blood Pressure 117/91 H Blood Pressure Mean 99 Blood Pressure Source Monitor Blood Pressure Position Semi-Fowlers Blood Pressure Location Left Arm Pulse Ox 97 Oxygen Delivery Method Room Air Weight Weight: 183 lb Body Mass Index (BMI) 22.8 Physical Exam Const alert, oriented x3, no apparent distress and healthy appearing General Appearance: cooperative; Negative for combative or lethargic Orientation / Consciousness: awake Exam Limitations: no limitations HEENT Head and Scalp: normocephalic and atraumatic Eyes EOMs intact bilaterally General Eye: normal appearance of both eyes Neck full ROM, no lymphadenopathy, thyroid normal and No no carotid bruits General: trachea midline; Negative for lymphadenopathy or tenderness Thyroid: thyroid normal Lymph Lymphatic: Negative for no lymphadenopathy noted Resp normal respiratory effort, no use of accessory muscles and clear to auscultationbilaterally Effort and Inspection: Negative for labored, stridor or audible wheezes Cardio regular rate and regular rhythm Back/Spine Cervical Spine: cervical ROM normal Extremity full ROM, normal capillary refill and no clubbing, cyanosis or edema Skin no rashes or lesions noted and no wounds Neuro oriented x3, CN's II-XII intact bilaterally, no focal motor deficits and no sensory deficits noted Psych thought process normal, cooperative, affect normal, speech normal and activity/motor behavior normal Assessment & Plan Assessment/Plan (1) Varicose veins of left lower extremity with pain: PLAN: -SFJ ligation, ablation GSV 12/06/23 1203 <Electronically signed by Junaid Whitney MD> Cosigner Signature (if applicable): CC: Dr. Junaid Whitney MD; Dr. Valdo Fuentes MD~ Signed [facility] Work Phone: Progress note 05-14-2023 Note Date & Type Note Facility 05-14-2023 Note HNO ID: [id number] Author: Note, Interface Service: ? Author Type: ? Type: Progress Notes Filed: 05/14/2023 5:50 AM Note Text: Epic Scheduled Downtime: 05/14/2023 1:00:00 AM to 05/14/2023 1:28:00 AM [facility] Progress note 04-17-2023 Note Date & Type Note Facility 04-17-2023 Note HNO ID: [id number] Author: Note, Interface Service: ? Author Type: ? Type: Progress Notes Filed: 04/17/2023 3:10 AM Note Text: Epic Scheduled Downtime: 04/17/2023 1:02:01 AM to 04/17/2023 2:21:01 AM [facility] Discharge summary Note Date & Type Note Facility Discharge summary Note Date/Time December 06, 2023 1:49pm [facility] Medical Records Department [address] [place] [address] Instructions for Home/Discharge Instructions 12/06/23 1346 MR#: [id number] Acct: [id number] Name: LAVINIA URIOSTEGUI Jr. Rep #: [id number] : 1975 48 From: Junaid Whitney MD PCP: Dr. Valdo Fuentes MD Status:REG S DC Discharge Instructions Diet Discharge Diet: No restrictions Activity Discharge Activity: May Take a Tub Bath (14 days) May shower in (days): 2 Lifting Restrictions: do not lift >20 for 2 weeks Dressing / Incision Call your doctor if your incision/area has: Sudden Increased Bleeding, IncreasedPain/ Swelling and Increased Redness Call your doctor if you observe: Fever of 101 or Higher Remove Dressing in: 2 days Cleanse incision/area with: Soap & Water Follow Up Care Test Results: Test results from this visit will be discussed in further detail at your follow-up appointment, if applicable. Discharge Plan Admission Attending Provider: Junaid Whitney Primary Care Provider: Valdo Fuentes Discharge Orders/Prescriptions Prescriptions: New oxycodone 5 mg tablet 5 mg PO Q8H PRN (Reason: pain) 3 Days Qty: 9 0RF Continued testosterone cypionate 100 mg/mL oil 100 mg IM .Q3W rosuvastatin 5 mg tablet 5 mg PO DAILY omega-3 fatty acids 1,000 mg capsule 1,000 mg PO BID clopidogrel [Plavix] 75 mg tablet 75 mg PO .daily Qty: 90 3RF Discontinued Xarelto 20 mg tablet 20 mg PO DAILY Qty: 30 2RF Rx Instructions: must administer with evening meal Referrals / Follow Up: Valdo Fuentes MD [Primary Care Provider] - Disposition Disposition (needs filled in before D/C Order can be placed): Home, Self Care 12/06/23 1400<Electronically signed by Junaid Whitney MD>Junaid Whitney MD CC: Dr. Valdo Fuentes MD ~ Signed [facility] Work Phone: Evaluation note Note Date & Type Note Facility Evaluation note No assessment information availa ble [facility] Work Phone: Evaluation note Note Date & Type Note Facility Evaluation note Diagnosis Onset Date Varicose vein of leg chronic [facility] Work Phone: Evaluation note Note Date & Type Note Facility Evaluation note Diagnosis Onset Date Varicose vein of leg chronic DVT (deep venous thrombosis) acute Varicose vein of leg chronic [facility] Work Phone: Evaluation note Note Date & Type Note Facility Evaluation note Diagnosis Onset Date Varicose vein of leg chronic DVT (deep venous thrombosis) acute Varicose vein of leg chronic Varicose veins of left lower extremity with pain acute [facility] Work Phone: Reason for referral (narrative) Note Date & Type Note Facility Reason for referral (narrative) No reason for referral information available [facility] Work Phone: Summary Purpose Family History No Family History Records Found Relationship Condition Age at Onset Recorded Date/T yesenia Not Specified High blood cholesterol Unknown Arthritis Unknown Malignant neoplasm Unknown Hypertension Unknown Advance Directives No Advanced Directives Records Found Advance Directive Response Recorded Date/ Time Advance Directives on File No 2023 9:03am Advance Directives No September 9:03am Living Will No September 024 9:03am Power of Pheresis Nurse No September 29, 2023 9:03am Advance Directive Response Recorded Date/ Time Advance Directives on File No [facility] 2023 10:03am Advance Directives No September 10:03am Living Will No October 03, 2023 11:03am Power of Pheresis Nurse No October 02 11:03am Advance Directive Response Recorded Date/ Time Advance Directives on File No [facility] 2023 10:03am Advance Directives No December 05, 2023 9:27am Living Will No December 05, 2023 9: 27am Power of Pheresis Nurse No December 05, 2023 9:27am Advance Directive Response Recorded Date/ Time Living Will No December 05, 2023 9: 27am Power of Pheresis Nurse No December 05, 2023 9:27am Advance Directives No December 05, 2023 9:27am Advance Directive Response Recorded Date/ Time Living Will No December 05, 2023 9: 27am Do you have a Healthcare Power of Pheresis Nurse? No December 05, 2023 9:27am Advance Directives No December 05, 2023 9:27am Chief Complaint and Reason for Visit Chief Complaint VENOUS HYPERTENSION W/ INFLAMMATION BILAT LOWER EXT I87.2 Chief Complaint BILAT LOWER EXT I87. 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 S/P LT ILIAC VEIN STENT Reason for Visit Varicose vein of leg DVT (deep venous thrombosis) Varicose vein of leg Chief Complaint CONSULT-SIGNIFICANT VARICOSE VEINS VARICOSE VEIN LEFT LEG LE VARICOSE VEINS LE 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 S/P LT ILIAC VEIN STENT VARICOSE VEINS/LIGATION FEMERAL SAPH JUNCTION VARICOSE VEINS/LIGATION FEMERAL SAPH JUNCTION Reason for Visit Varicose vein of leg DVT (deep venous thrombosis) Varicose vein of leg Varicose veins of left lower extremity with pain Chief Complaint Admit Date S/P L ILIAC VEIN STENT October 01, 2024 7 :57am Chief Complaint Admit Date S/P L ILIAC VEIN STENT October 01, 2024 7 :57am 1 Y FU October 23, 2024 1:2 9pm LT LEG PAIN November 28, 2024 8:0 4am Discuss Varicose Vein Treatment options December 20, 2024 3:20pm Reason for Visit Admit Date Iliac vein stenosis, left October 23 1:29pm Varicose veins of left lower extremity w ith pain October 23, 2024 1:29pm Varicose veins of left lower extremity w ith pain December 20, 2024 3:20pm Additional Source Comments (unrecognized sect ion and content) No Status Records FoundNo Status Records FoundNo Status Records Found INFORMATION SOURCE (unrecogn ized section and content) DATE CREATED AUTHOR 11/24/2019 [facility] DATE CREATED AUTHOR AUTHOR'S ORGANIZ ATION 05/16/2023 [facility] DATE CREATED AUTHOR AUTHOR'S ORGANIZ ATION 01/30/2025 [place] [facility] Goals (unrecognized section and content) Goals may be documented in a n alternate sectionGoals may be documented in an alternate sectionGoals may be documented in an alternate sectionGoals may be documented in an alternate sectionGoals may be documented in an alternate sectionGoals may be documented in an alternate sectionGoals may be documented in an alternate sectionGoals may be documented in an alternate section Care Teams (unrecognized sec tion and content) Team Status: Active Member Role Status Dates Dr. Valdo Fuentes MD Primary Care Provider Active Team Status: Inactive Member Role Status Dates Dr. Valdo Fuentes MD Primary Care Provider Active Start: October 01, 2024 End: October 01, 2024 JOSE Higgins Attending Provider Active Star t: October 01, 2024 End: October 01, 2024 JOSE Higgins Referring Provider Active Star t: October 01, 2024 End: October 01, 2024 Team Status: Active Member Role Status Dates Dr. Valdo Fuentes MD Primary Care Provider Active Start: October 01, 2024 Dr. Junaid Whitney MD Attending Provider Active S tart: October 01, 2024 JOSE Higgins Referring Provider Active Star t: October 01, 2024 Team Status: Inactive Member Role Status Dates Dr. Valdo Fuentes MD Primary Care Provider Active Start: October 23, 2024 End: October 23, 2024 Dr. Valdo Fuentes MD Referring Provider Active Start: October 23, 2024 End: October 23, 2024 JOSE Higgins Attending Provider Active Star t: October 23, 2024 End: October 23, 2024 Team Status: Inactive Member Role Status Dates Dr. Valdo Fuentes MD Primary Care Provider Active Start: November 28, 2024 End: November 28, 2024 JOSE Higgins Attending Provider Active Star t: November 28, 2024 End: November 28, 2024 JOSE Higgins Referring Provider Active Star t: November 28, 2024 End: November 28, 2024 Team Status: Active Member Role Status Dates Dr. Valdo Fuentes MD Primary Care Provider Active Start: November 28, 2024 Dr. Junaid Whitney MD Attending Provider Active S tart: November 28, 2024 JOSE Higgins Referring Provider Active Star t: November 28, 2024 Team Status: Inactive Member Role Status Dates Dr. Valdo Fuentes MD Primary Care Provider Active Start: December 20, 2024 End: December 20, 2024 Dr. Valdo Fuentes MD Referring Provider Active Start: December 20, 2024 End: December 20, 2024 Dr. Junaid Whitney MD Attending Provider Active S tart: December 20, 2024 End: December 20, 2024 Team Status: Inactive Member Role Status Dates Dr. Valdo Fuentes MD Primary Care Provider Active Start: January 18, 2025 End: January 18, 2025 Dr. Vandana Crowe MD Attending Provider Active S tart: January 18, 2025 End: January 18, 2025 Dr. Vandana Crowe MD Referring Provider Active S tart: January 18, 2025 End: January 18, 2025 Team Status: Active Member Role Status Dates Dr. Valdo Fuentes MD Family Provider Active Dr. Valdo Fuentes MD Primary Care Provider Active Team Status: Inactive Member Role Status Dates Dr. Valdo Fuentes MD Primary Care Provider Active Dr. Garth Avendano MD Attending Provider, Referring P rovider Active Team Status: Inactive Member Role Status Dates Dr. Valdo Fuentes MD Primary Care Provider, Attending Provider Active Team Status: Inactive Member Role Status Dates Dr. Valdo Fuentes MD Primary Care Provi kit, Attending Provider, Referring Provider Active Team Status: Inactive Member Role Status Dates Dr. Valdo Fuentes MD Primary Care Provider, Referring Provider Active Dr. Junaid Whitney MD Attending Provider Active Team Status: Active Member Role Status Dates Dr. Valdo Fuentes MD Primary Care Provider Active Dr. Junaid Whitney MD Attending Provider Active Team Status: Active Member Role Status Dates Dr. Valdo Fuentes MD Primary Care Provider Active Health Risk Assessment Attending Provider Active Team Status: Inactive Member Role Status Dates Dr. Valdo Fuentes MD Primary Care Provider Active Dr. Junaid Whitney MD Attending Provider, Referring Pro vider Active Team Status: Active Member Role Status Dates Dr. Valdo Fuentes MD Primary Care Provider Active Dr. Junaid Whitney MD Attending Provider, Referring Pro vider Active Team Status: Inactive Member Role Status Dates Dr. Valdo Fuentes MD Primary Care Provider Active Dr. Junaid Whitney MD Attending Provider Active Team Status: Inactive Member Role Status Dates Dr. Valdo Fuentes MD Primary Care Provider, Referring Provider Active JOSE Higgins Attending Provider Active Team Status: Active Member Role Status Dates Dr. Valdo Fuentes MD Primary Care Provider Active Dr. Junaid Whitney MD Attending Provider, Referring Provider, Other Provider Active Team Status: Inactive Member Role Status Dates Dr. Valdo Fuentes MD Primary Care Provider Active JOSE Higgins Attending Provider, Referring Provid er Active Team Status: Active Member Role Status Dates Dr. Valdo Fuentes MD Primary Care Provider Active Dr. Junaid Whitney MD Attending Provider Active JOSE Higgins Referring Provider Active Team Status: Active Member Role Status Dates Dr. Valdo Fuentes MD Primary Care Provider Active Start: September 21, 2024 Health Risk Assessment Attending Provider Active Start: September 21, 2024 Team Status: Active Member Role Status Dates Dr. Valdo Fuentes MD Primary Care Provider Active Start: October 01, 2024 Dr. Junaid Whitney MD Attending Provider Active S tart: October 01, 2024 FOR RECORDS PERTAINING TO PATIENTS WHO ARE OR HAVE BEEN ENROLLED IN A CHEMICAL DEPENDENCY/SUBSTANCEABUSE PROGRAM, SOME INFORMATION MAY BE OMITTED. This clinical summary was aggregated from multiple sources. Caution should be exercised in using it in the provision of clinical care. This summary normalizes information from multiple sources, and as a consequence, information in this document may materially change the coding, format and clinical context of patient data. In addition, data may be omitted in some cases. CLINICAL DECISIONS SHOULD BE BASED ON THE PRIMARY CLINICAL RECORDS. [employer] provides no warranty or guarantee of the accuracy or completeness of information in this document.
--- NOTE | 2025-02-07 09:36 | HP.PCM_ITS ---
HPI - General HPI Narrative LAVINIA VILLAR, is a 49 M who presents with painful left leg varicose veins and prior SVT. 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 He presents for water resource manager ablation with plans for a later foam sclero of accessory. [facility] Medical History Loss of hearing Wears glasses Anxiety Marijuana use Arthritis High cholesterol DVT (deep venous thrombosis) Back pain Syncope Asthma Chewing tobacco dependence History of edema Hypertension History of echocardiogram MVP (mitral valve prolapse) Home Medications ?Medication ?Instructions ?Recorded ?Last Taken ?Type rosuvastatin 5 mg tablet 5 mg PO DAILY 09/05/23 Unkno wn History testosterone cypionate 100 mg/mL 100 mg IM .Q3W Unknown History intramuscular oil clopidogrel 75 mg tablet (Plavix) 75 mg PO .daily #90 tabs 10/05/24 Unknown Rx fluoxetine 20 mg capsule 40 mg PO QDAY 10/23/24 Unkno wn History dextroamphetamine-amphetamine 20 20 mg PO QDAY 5 Unknown History mg tablet (Adderall) Allergy/AdvReac Type Severity Reaction Status Date / Time sulfamethoxazole (From Allergy Intermediate Rash Verified 12/20/24 15:33 Bactrim) trimethoprim (From Bactrim) Allergy Intermediate Rash Verified 12/20/24 15:33 Family History Other Arthritis Cancer High cholesterol Hypertension Surgical History Hx of tonsillectomy (~1982) Social History Smoking Status: Former smoker how long ago did patient quit smokin years ago, chewing tobacco 1 month ago alcohol intake: never ROS Constitutional Constitutional: Denies chills, fever(s), frequent falls, lethargy or weakness Eyes Eyes: Denies blind spots, change in vision or loss of vision ENT HEENT: Denies bleeding gums, hoarseness or sore throat Cardiovascular Cardiovascular: Denies abdominal pain, bluish discoloration of hand/feet, chest pain with activity, claudication, cold extremities, cyanosis, dyspnea on exe rtion, erythema on extremities, irregular heart rhythm, leg edema, leg ulcers, numbness in extremities or weakness in extremities Respiratory/Chest Respiratory/Chest: Denies cough, excessive phlegm production, shortness of breath at rest, shortness of breath with exertion or wheezing Gastrointestinal Gastrointestinal: Denies anorexia, change in stool character, constipation, diarrhea, melena or rectal bleeding Genitourinary Genitourinary: Denies dysuria or hematuria Musculoskeletal Musculoskeletal: Denies abnormal gait Integumentary Integumentary: Reports other Details: ; Denies erythema, non-healing lesions or wounds Neurologic Neurologic: Denies abnormal speech, focal weakness, headache(s), loss of vision, numbness, paresthesias or sensory deficit Hematologic/Lymphatic Hematologic/Lymphatic: Denies easy bleeding, easy bruising or lymphadenopathy Vital Signs Vital Signs Vital Signs: Weight Weight: 207 lb Body Mass Index (BMI) 25.9 Physical Exam Const alert, oriented x3, no apparent distress and healthy appearing General Appearance: cooperative; Negative for combative or lethargic Orientation / Consciousness: awake Exam Limitations: no limitations HEENT Head and Scalp: normocephalic and atraumatic Eyes EOMs intact bilaterally General Eye: normal appearance of both eyes Neck full ROM General: trachea midline Resp normal respiratory effort, no use of accessory muscles and clear to auscultation bilaterally Effort and Inspection: Negative for labored, stridor or audible wheezes Cardio regular rate and regular rhythm Back/Spine Cervical Spine: cervical ROM normal Extremity full ROM, normal capillary refill and no clubbing, cyanosis or edema Skin no rashes or lesions noted and no wounds Neuro oriented x3, CN's II-XII intact bilaterally, no focal motor deficits and no sensory deficits noted Psych thought process normal, cooperative, affect normal, speech normal and activity/motor behavior normal Assessment & Plan Assessment/Plan (1) Varicose veins of left lower extremity with pain: PLAN: -water resource manager ablation
--- NOTE | 2025-02-07 13:30 | PCM.OPRPT ---
Operative Report (Standard) Operative Information Date of Procedure: 02/07/25 Pre-Operative Diagnosis: Varicose veins with pain of the left lower extremity, incompetent director of education and training veins in the calf Post-Operative Diagnosis: Same Surgery/Procedure Performed: Radiofrequency ablation left calf director of education and training vein police dispatcher: No Type of Anesthesia: Local and Sedation,Conscious Procedure Start Time: 08:50 Procedure Stop Time: 09:10 Select all DRAINS/GRAFTS/IMPLANTS that apply: None Estimated Blood Loss: 1 Specimen collected: No Description of surgery: HPI: Patient is a 49-year-old male with left lower extremity painful varicose veins that are refractory to compression garments as well as multiple prior venous procedures including saphenous vein ablation, saphenofemoral junction ligation, iliac vein stent. He has noted to have valvular incompetence in accessory saphenous veins as well as to director of education and training veins in the calf. He is taken now for director of education and training vein ablation. Description of procedure: Upon obtaining informed consent and verification correct patient procedure site the patient was taken to the [facility] where he was positioned prepped and draped in usual sterile fashion. Time was performed Sedation administered Versed and fentanyl. Ultrasound was used to evaluate the director of education and training veins with the more distal calf vein appropriate for ablation. The more proximal vein and the deep vessel it communicated with were significantly more shallow and did not provide enough distance to safely treat without risk of deep vein injury or skin injury so this vessel was not pursued. Skin overlying the more distal director of education and training vein was anesthetized 1% lidocaine and skin incision made with an 11 blade. Through this puncture site to the director of education and training ablation stylette was passed under ultrasound guidance accessing the director of education and training vein. The ablation generator confirmed adequate position within appropriate resistance of 200 to 400 ohms so the device was activated for total of 8 minutes in the 4 quadrants maintaining position within the director of education and training. After completion of the treatment cycles the stylette was withdrawn and the vessel assessed with ultrasound and found to be ablated. Manual pressure was held followed by a dry sterile dressing and Kevin wrap. The patient was then taken to the recovery area with anticipated discharge home after bedrest. Surgical Findings: See above Complications Complications: No
== END 2025-02-07 10:13 | disposition home or self-care (01) ==
PROVIDERS: PCP Family Medicine; Referring Provider Surgery Trauma Surgery; Visit Provider Surgery Trauma Surgery
DX: I83.812 Varicose veins of left lower extremity with pain (principal); I10 Essential (primary) hypertension; E78.00 Pure hypercholesterolemia, unspecified; J45.909 Unspecified asthma, uncomplicated; M19.90 Unspecified osteoarthritis, unspecified site; Z79.02 Long term (current) use of antithrombotics/antiplatelets; Z79.899 Other long term (current) drug therapy; Z86.718 Personal history of other venous thrombosis and embolism; Z87.891 Personal history of nicotine dependence; Z82.49 Family history of ischemic heart disease and other diseases of the circulatory system
CPT/HCPCS: 36475; 99152; 99153; C1888; C1894

== ENCOUNTER 2025-02-14 07:37 | Day surgery (SDC) | payer BC, SELFPAY ==
[2025-02-13 09:06] VITALS: BMI 23.6
--- OUTSIDE RECORDS SUMMARY | 2025-02-14 08:02 | XMS RPT_ITS | CCD ---
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 Vlado Fuentes Primary Care Provider Dr. Valdo Fuentes Referring Provider Dr. Junaid Whitney Attending Provider 1([facility])[phone] Junaid Whitney Referring Provider 1([facility])[phone] Valdo Fuentes Primary Care Provider 1([facility])[phone] Dr. Valdo Fuentes Referring Provider Dr. Junaid Whitney Attending Provider 1([facility])[phone] Junaid Whitney Referring Provider 1([facility])[phone] Junaid Whitney Other Provider JOSE Dupree Attending Provider 1([facility])-[phone] JOSE Dupree Referring Provider 1([facility])-[phone] Valdo Fuentes MD Primary Care Provider 1([facility] )[phone] Assessment, Health Risk Attending Provider Unava ilable Joon RICH, Quynh Attending Provider 1([facility])[phone] Quynh Whittington Referring Provider 1([facility])-[phone] Junaid Whitney MD Attending Provider Dr. Valdo Fuentes MD Primary Care Provider Dr. Valdo Fuentes MD Referring Provider [phone] Amrita HERNANDEZ, Dr. Ross Attending Provider [phone] Amrita HERNANDEZ, Dr. Ross Referring Provider Michael HERNANDEZ, Dr. Lyle Primary Care Provider 1([facility] )[phone] Dupree PA, Quynh Attending Provider [phone] Joon RICH, Quynh Referring Provider [phone] Devonte HERNANDEZ, Dr. Quiroga Attending Provider Devonte HERNANDEZ, Dr. Quiroga Referring Provider Devonte HERNANDEZ, Dr. Quiroga Other Provider [phone] Assessment, Health Risk Attending Unavaila ble Fuentes, Valdo Primary Care Unavailable Assessment, Health Risk Attending Unavaila ble Fuentes, Valdo Primary Care Unavailable Marble, Junaid Attending Unavailable Fuentes, Valdo Primary Care Unavailable Fuentes, Valdo Attending Unavailable Fuentes, Valdo Primary Care Unavailable Dupree, Quynh Referring Unavailable Fuentes, Valdo Primary Care Unavailable Dupree, Quynh Attending Unavailable Marble, Junaid Attending Unavailable Dupree, Quynh Referring Unavailable Fuentes, Valdo Primary Care Unavailable Fuentes, Valdo Primary Care Unavailable Devonte, Junaid Attending Unavailable Dupree, Quynh Referring Unavailable Devonte, Junaid Attending Unavailable Dupree, Quynh Referring Unavailable Fuentes, Valdo Primary Care Unavailable Fuentes, Valdo Primary Care Unavailable Marble, Junaid Consulting Unavailable Marble, Junaid Referring Unavailable Marble, Junaid Attending Unavailable Fuentes, Valdo Referring Unavailable Marble, Junaid Attending Unavailable Fuentes, Valdo Primary Care Unavailable Fuentes, Valdo Referring Unavailable Feuntes, Valdo Primary Care Unavailable Dupree, Quynh Attending Unavailable Fuentes, Valdo Referring Unavailable Fuentes, Valdo Attending Unavailable Fuentes, Valdo Primary Care Unavailable Dupree, Quynh Referring Unavailable Fuentes, Valdo Primary Care Unavailable Dupree, Quynh Attending Unavailable Devonte, Junaid Attending Unavailable Marble, Junaid Referring Unavailable Fuentes, Valdo Primary Care Unavailable Amrita, Vandana Referring Unavailable Amrita, Vandana Attending Unavailable Fuentes, Valdo Primary Care Unavailable Fuentes, Valdo Primary Care Unavailable Dupree, Quynh Attending Unavailable Dupree, Quynh Referring Unavailable Allergies Allergy Classification Reported Allergen(s) Allergy Type Date of Onset Reaction(s) Facility (1 source) Sulfamethoxazole / Trimethoprim; Translations: [SULFAMETHOXAZOLE-TR IMETHOPRIM] Drug Allergy [address] [place] [address] Repository (8 sources) Sulfamethoxazole Drug Allergy 4 [facility] (8 sources) Trimethoprim Drug Allergy 4 [facility] (1 source) Sulfamethoxazole Drug Allergy 5 [facility] Repository (1 source) Trimethoprim Drug Allergy [facility] Repository Medications Current Medications Medication Drug Class(es) Dates Sig (Normalized) Sig (Original) amphetamine aspartate 5 mg / amphetamine sulfate 5 mg / dextroamphetamine saccharate 5 mg / dextroamphetamine sulfate 5 mg oral tablet (2 sources) Central Nervous System Stimulant Start: 12-20-2024 take 1 tablet by mouth once daily Dextroamphetamine -Amphetamine (Adderall) 20 mg tablet Active 20 mg PO daily 0 December 20, 2024 12:00am clopidogrel 75 mg oral tablet (10 sources) P2Y12 Platelet Inhibitor Start: 09-29-2023 End: 10-05-2024 take 1 tablet by mouth once daily Clopidogrel (Plavix) 75 mg tablet Active 75 mg PO .daily October 05, 2024 10:15am FLUoxetine 20 mg oral capsule (2 sources) Serotonin Reuptake Inhibitor Start: 10-23-2024 take 2 capsules by mouth once daily Fluoxetine 20 mg capsule Active 40 mg PO daily October 23, 2024 12:00am [place]-3 Fatty Acids (5 sources) Start: 09-05-2023 take 1000 mg by mouth twice daily [place]-3 Fatty Acids Active 1000 MG PO TWICE A DAY September 05, 2023 1:00am Start: 09-05-2023 take 1000 mg by mouth once dutch ly [place]-3 Fatty Acids Active 1000 MG PO DAILY September 05, 2023 12:00am rosuvastatin calcium 5 mg oral tablet (8 sources) HMG-CoA Reductase Inhibitor Start: 09-05-2023 take 1 tablet by mouth once daily Rosuvastatin 5 mg tablet Active 5 mg PO DAILY September 05, 2023 1:00am testosterone cypionate 100 mg/ml injectable solution (8 sources) Androgen Start: 09-05-2023 Testosterone Cypionate 100 mg/mL oil Active 100 mg IM .Q3W September 05, 2023 1:00am Start: 09-05-2023 Testosterone C ypionate Active 100 MG IM .Q3W September 05, 2023 1:00am Completed/Discontinued Medications Medication Drug Class(es) Dates Sig (Normalized) Sig (Original) [place]-3 Fatty Acids 1,000 mg capsule (3 sources) Start: 09-05-2023 End: 10-23-2024 take 1 capsule by mouth twice daily [place]-3 Fatty Acids 1,000 mg capsule Discontinued 1000 mg PO TWICE A DAY September 05, 2023 1:00am October 23, 2024 1:56pm Start: 09-05-2023 take 1 capsule by mo [facility] twice daily [place]-3 Fatty Acids 1,000 mg capsule Active 1000 mg PO TWICE A DAY September 05, 2023 1:00am oxyCODONE hydrochloride 5 mg oral tablet (4 sources) Opioid Agonist Start: 12-06-2023 End: 10-23-2024 take 1 tablet by mouth every eight hours as needed for pain Oxycodone 5 mg tablet Discontinued 5 mg PO Q8H as needed for pain 9 3 0 December 06, 2023 October 23, 2024 1:56pm Varicose veins of left lower extremity with pain Varicose veins of left lower extremity with pain rivaroxaban 20 mg oral tablet (13 sources) Factor Xa Inhibitor Start: 12-20-2023 End: 10-05-2024 take 1 tablet by mouth once daily Rivaroxaban (Xarelto) 20 mg tablet Discontinued 20 mg PO DAILY 30 0 December 20, 2023 12:00am October 05, 2024 10:15am Start: 09-05-2023 End: 12-06-2023 take 1 tablet by mouth once daily at dinner Rivaroxaban (Xarelto) 20 mg tablet Discontinued 20 mg PO DAILY 30 2 September 08, 2023 1:00am December 06, 2023 1:58pm must administer with evening meal Problems Active Problems Problem Classification Problem Date Documented Da te Episodic/Chronic Other aftercare (5 sources) Surgical follow-up; Translations: [Encounter for surgical aftercare following surgery on the circulatory system] 11-11-2023 Episodic Other diseases of veins and lymphatics (7 sources) Occlusion of iliac vein; Translations: [Compression of vein] 11-11-2023 Episodic Other diseases of veins and lymphatics (2 sources) Venous insufficiency (chronic) (peripheral); Translations: [Venous insufficiency (chronic) (peripheral)] Onset: 02-07-2025 Episodic Other inflammatory condition of skin (1 source) Psoriasis vulgaris; Translations: [Psoriasis vulgaris] Onset: 01-24-2025 Chronic Other lower respiratory disease (10 sources) Cough; Translations: [Cough] 03-10-2021 Episodic Phlebitis; thrombophlebitis and thromboembolism (17 sources) Deep venous thrombosis; Translations: [Acute embolism [...] varicose veins of unspecified lower extremity] Onset: 02-07-2025 09-05-2023 Episodic Past or Other Problems Problem [...] Test Name Value Interpretation Reference Range Facility Operative Reporton Operative Report [facility] Medical Records Department [address] [place] [address] Operative Report 02/07/25 1330 MR#: [id number] Acct: [id number] Name: LAVINIA URIOSTEGUI JrKm Rep #: [id number] : 1975 49 From: Junaid Whitney MD PCP: Dr. Valdo Fuentes MD Status:[facility] Location: [facility] Operative Report (Standard) Operative Information Date of Procedure: 02/07/25 Pre-Operative Diagnosis: Varicose veins with pain of the left lower extremity, incompetent salt machine operator veins in the calf Post-Operative Diagnosis: Same Surgery/Procedure Performed: Radiofrequency ablation left calf salt machine operator vein blade changer: No Type of Anesthesia: Local and Sedation,Conscious Procedure Start Time: 08:50 Procedure Stop Time: 09:10 Select all DRAINS/GRAFTS/IMPLANTS that apply: None Estimated Blood Loss: 1 Specimen collected: No Description of surgery: HPI: Patient is a 49-year-old male with left lower extremity painful varicose veins that are refractory to compression garments as well as multiple prior venous procedures including saphenous vein ablation, saphenofemoral junction ligation, iliac vein stent. 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 He is taken now for salt machine operator vein ablation. Description of procedure: Upon obtaining informed consent and verification correct patient procedure site the patient was taken to the Straight Tooth Gear Generator Operator where he was positioned prepped and draped in usual sterile fashion. Time was performed Sedation administered Versed and fentanyl. Ultrasound was used to evaluate the salt machine operator veins with the more distal calf vein appropriate for ablation. The more proximal vein and the deep vessel it communicated with were significantly more shallow and did not provide enough distance to safely treat without risk of deep vein injury or skin injury so this vessel was not pursued. Skin overlying the more distal salt machine operator vein was anesthetized 1% lidocaine and skin incision made with an 11 blade. Through this puncture site to the salt machine operator ablation stylette was passed under ultrasound guidance accessing the salt machine operator vein. The ablation generator confirmed adequate position within appropriate resistance of 200 to 400 ohms so the device was activated for total of 8 minutes in the 4 quadrants maintaining position within the salt machine operator. After completion of the treatment cycles the stylette was withdrawn and the vessel assessed with ultrasound and found to be ablated. Manual pressure was held followed by a dry sterile dressing and Kevin wrap. The patient was then taken to the recovery area with anticipated discharge home after bedrest. Surgical Findings: See above Complications Complications: No 02/07/25 9281 Cosigner Signature (if applicable): CC: Dr. Junaid Whitney MD; Dr. Valdo Fuentes MD Signed Normal [facility] Quantiferon TB-Gold+on 01-22 QFT MITOGEN VARSHA > 10.00 Normal . [facility] Comment on above: Performed By: #### L 3400.8000 ####[facility] [address] [place], [address] QFT NIL VALUE 0.05 IU/mL Normal . [facility] Comment on above: Performed By: #### L 3400.8000 ####[facility] [address] [place], [address] QFT TB GOLD+ Comment Normal . [facility] Comment on above: Result Comment: Jaren tiFERON-TB [...] the test. Performed By: #### L 3400.8000 ####[facility] [address] [place], [address] QFT TB POS CRIT Negative Normal Negative [facility] Comment on above: Result Comment: No r [...] interferon gamma. Chemiluminescence immunoassay methodology Performed at: [facility] [id number] Display Department Manager: Reji Rahman PhD, Phone: [phone] Performed By: #### L 3400.8000 ####[facility] [address] [place], [address] QFT TB1+ AG VARSHA 0.08 IU/mL Normal . [facility] Comment on above: Performed By: #### L 3400.8000 ####[facility] [address] [place], [address] QFT TB2+ AG VARSHA 0.11 IU/mL Normal . [facility] Comment on above: Performed By: #### L 3400.8000 ####[facility] [address] [place], [address] Qualitative QuantiFERON-TB g old in tube testOrdered By: Vandana Crowe on 01-18-2025 M. tuberculosis tuberculin stim IFN-g Ql (Bld) 0.08 IU/mL . [facility] MR/BMS.BVPio 12-20-2024 MR/BMS.BVS [facility] Vascular Surgery [address] [place] [address] OFFICE VISIT Date of Service: 12/20/24 MR#: [id number] Acct: [id number] Name: LAVINIA URIOSTEGUI Jr. Rep #: [id number] : 1975 Provider: Dr. Junaid Whitney MD Age/Sex: 49/M Location: [facility] Status: Signed Intake Vital Signs 12/06/23 [...] nourished Orientation: alert, awake and oriented x3 HENMT Head: normocephalic and atraumatic Ears: hearing grossly normal bilaterally Nose: external nose normal Eyes General: appearance normal, both eyes and (more content not included)... Normal [facility] Venous Duplex US, Unilateral on 11-28-2024 Venous Duplex US, Unilateral [facility] Cardiovascular Services [address] [place] [address] Venous Duplex US, Unilateral 11/28/24 0813 MR#: [id number] Acct: [id number] Name: LAVINIA URIOSTEGUI . Rep #: [id number] : 1975 49 From: Junaid Whitney MD [...] in left calf accessory saphenous vein, associated salt machine operator veins, and segments of the great saphenous vein. Deep veins of the left lower extremity are patent and compressible segmentally. There is no evidence of left lower extremity deep vein thrombosis. Positive for reflux in the left femoral vein, accessory saphenous vein in the thigh, small saphenous vein, and calf perforators. Ordering Physician: Quynh Dupree Referring Physician: Valdo Fuentes Performed By: Elvin Wall, T 11/28/24 1419 Date Junaid Whitney MD CC: JOSE Higgins; Dr. Valdo Fuentes MD Date Dictated: 11/28/2413 Date Transcribed: 11/28/241418 Woods Manager: Signed Normal [facility] /Fadi 10-23-2024 /SEGUN [facility] Vascular Surgery [address] [facility] [place] [address] OFFICE VISIT Date of Service: 10/23/24 MR#: [id number] Acct: [id number] Name: LAVINIA URIOSTEGUI Jr. Rep #: [id number] : 1975 Provider: JOSE Higgins Age/Sex: 49/M Location: [facility] Status: Signed Intake Vital Signs 12/06/23 09:48 [...] No syn (more content not included)... Normal [facility] Abd Aortic/IVC Duplex scanon 10-01-2024 Abd Aortic/IVC Duplex scan [facility] Cardiovascular Services [address] [place] [address] Abd Aortic/IVC Duplex scan 10/01/24 0803 MR#: [id number] Acct: [id number] Name: LAVINIA URIOSTEGUI Jr. Rep #: [id number] : 1975 49 From: Junaid Whitney MD Attending Dr: JOSE Higgins Status: REG CLI Ordering Dr: Quynh Dupree Date: 10/01/24 Location: [facility] Sex: M C Admitted: Reason For [...] Aorta IVC Iliac vasculature or bypass grafts 03963. Exam performed in department. VL/Abd Aortic/IVC Duplex [...] Dr. Valdo Fuentes MD Date Dictated: 10/01/24 08 Date Transcribed: 10/01/241258 Woods Manager: Signed Normal [facility] Abdominal aortic duplex scan reportOrdered By: Junaid Whitney on 10-01-2024 US.doppler Thoracic and abdominal aorta [facility] Cardiovascular Services [address] [place] [address] Abd Aortic/IVC Duplex scan 10/01/24802 MR#: [id number] Acct: [id number] Name: LAVINIA URIOSTEGUI JrKm Rep #: [id number] : 1975 49 From: Junaid Pierce Attending Dr: JOSE Higgins Stat us: REG CLI Ordering Dr: Quynh Dupree Date: Location: [facility] Sex: M C Admitted: Reason For [...] Aorta IVC Iliac vasculature or bypass grafts 24422. Exam performed in department. VL/Abd Aortic/IVC Duplex [...] ~ Date Dictated: 10/01/24 0803 Date Transcribed: 10/01/24 1259 Woods Manager: Signed [facility] Work Phone: Albumin to globulin ratioOrd ered By: HEALTH ASSESSMENT on 09-21-2024 Albumin/Globulin [Mass ratio] 1.1 {ratio} 0.9-2.4 [facility] Bilirubin, totalOrdered By: HEALTH ASSESSMENT on 09-21-2024 Bilirubin [Mass/Vol] 0.70 mg/dL 0.20-1.00 [facility] Comment on above: For patients on eltr ombopag therapy, use of Dimension Temple TBIL is not recommended. Blood urea nitrogen (BUN)/cr eatinine ratioOrdered By: HEALTH ASSESSMENT on 09-21-2024 Urea nitrogen/Creatinine [Mass ratio] 17.2 mg/mg 10-20 [facility] CBC-Complete Blood Cnt No Di ffon 09-21-2024 Erythrocyte distribution width (RBC) [Ratio] 12.7 % Normal 11.6-14.6 [facility] Comment on above: Performed By: #### L 500.4100, L100.0500, L500.4050, L501.9985 ####[facility] [address] [place], [address] Hematocrit (Bld) [Volume fraction] 46.8 % Normal 40-54 [facility] Comment on above: Performed By: #### L 500.4100, L100.0500, L500.4050, L501.9985 ####[facility] [address] [place], [address] Hemoglobin (Bld) [Mass/Vol] 15.0 g/dL Normal 13.0-16.5 [facility] Comment on above: Performed By: #### L 500.4100, L100.0500, L500.4050, L501.9985 ####[facility] [address] [place], [address] MCH (RBC) [Entitic mass] 28.7 pg Normal 27.0-32.0 [facility] Comment on above: Performed By: #### L 500.4100, L100.0500, L500.4050, L501.9985 ####[facility] [address] [place], [address] MCHC (RBC) [Mass/Vol] 32.1 g/dL Normal 32-36 [facility] Comment on above: Performed By: #### L 500.4100, L100.0500, L500.4050, L501.9985 ####[facility] [address] [place], [address] MCV (RBC) [Entitic vol] 89.5 fL Normal 80-94 [facility] Comment on above: Performed By: #### L 500.4100, L100.0500, L500.4050, L501.9985 ####[facility] [address] [place], [address] Platelet mean volume (Bld) [Entitic vol] 10.4 fL Normal 6.2-12.0 [facility] Comment on above: Performed By: #### L 500.4100, L100.0500, L500.4050, L501.9985 ####[facility] [address] [place], [address] Platelets (Bld) [#/Vol] 216 10*3/uL Normal 150-450 [facility] Comment on above: Performed By: #### L 500.4100, L100.0500, L500.4050, L501.9985 ####[facility] [address] [place], [address] RBC (Bld) [#/Vol] 5.23 10*6/uL Normal 4.6-6.[address] [facility] Comment on above: Performed By: #### L 500.4100, L100.0500, L500.4050, L501.9985 ####[facility] [address] [place], [address] RDW SD 41.6 fl Normal 35.1-43.9 [facility] Comment on above: Performed By: #### L 500.4100, L100.0500, L500.4050, L501.9985 ####[facility] [address] [place], [address] WBC (Bld) [#/Vol] 4.6 10*3/uL Normal 4.4-11.0 [facility] Comment on above: Performed By: #### L 500.4100, L100.0500, L500.4050, L501.9985 ####[facility] [address] [place], [address] Carbon dioxide measurementOr dered By: HEALTH ASSESSMENT on 09-21-2024 CO2 [Moles/Vol] 28.0 mmol/L 21.0-32.0 [facility] Chloride measurementOrdered By: HEALTH ASSESSMENT on 09-21-2024 Chloride [Moles/Vol] 102 mmol/L 98-107 [facility] Comprehensive Metabolic Prof ilon 09-21-2024 Albumin [Mass/Vol] 4.0 g/dL Normal 3.2-5.0 [facility] Comment on above: Performed By: #### L 500.4100, L100.0500, L500.4050, L501.9985 ####[facility] [address] [place], [address] Albumin/Globulin [Mass ratio] 1.1 {ratio} Normal 0.9-2.4 [facility] Comment on above: Performed By: #### L 500.4100, L100.0500, L500.4050, L501.9985 ####[facility] [address] [place], [address] ALK P 50 U/L Normal 45-117 [facility] Comment on above: Performed By: #### L 500.4100, L100.0500, L500.4050, L501.9985 ####[facility] [address] [place], [address] ALT [Catalytic activity/Vol] 42 U/L Normal 16-61 [facility] Comment on above: Performed By: #### L 500.4100, L100.0500, L500.4050, L501.9985 ####[facility] [address] [place], [address] AST [Catalytic activity/Vol] 30 U/L Normal 15-37 [facility] Comment on above: Performed By: #### L 500.4100, L100.0500, L500.4050, L501.9985 ####[facility] [address] [place], [address] Bilirubin [Mass/Vol] 0.70 mg/dL Normal 0.20-1.00 [facility] Comment on above: Result Comment: For patients on eltrombopag therapy, use of Dimension Temple TBIL is not recommended. Performed By: #### L 500.4100, L100.0500, L500.4050, L501.9985 ####[facility] [address] [place], [address] BUN/CRE 17.2 RATIO Normal 10-20 [facility] Comment on above: Performed By: #### L 500.4100, L100.0500, L500.4050, L501.9985 ####[facility] [address] [place], [address] CA,Total 9.2 mg/dL Normal 8.5-10.1 [facility] Comment on above: Performed By: #### L 500.4100, L100.0500, L500.4050, L501.9985 ####[facility] [address] [place], [address] Chloride [Moles/Vol] 102 mmol/L Normal 98-107 [facility] Comment on above: Performed By: #### L 500.4100, L100.0500, L500.4050, L501.9985 ####[facility] [address] [place], [address] CO2 [Moles/Vol] 28.0 mmol/L Normal 21.0-32.0 [facility] Comment on above: Performed By: #### L 500.4100, L100.0500, L500.4050, L501.9985 ####[facility] [address] [place], [address] Creatinine [Mass/Vol] 0.99 mg/dL Normal 0.70-1.30 [facility] Comment on above: Result Comment: The validity of the calculated GFR GFRAA in patients over 70 years has not been determined. Clinical correlation is essential. Performed By: #### L 500.4100, L100.0500, L500.4050, L501.9985 ####[facility] [address] [place], [address] EST GFR - AA 103 mL/min Normal >60 [facility] Comment on above: Result Comment: Afri can [place] GFR Calc Performed By: #### L 500.4100, L100.0500, L500.4050, L501.9985 ####[facility] [address] [place], [address] GAP 7 Normal 5-15 [facility] Comment on above: Performed By: #### L 500.4100, L100.0500, L500.4050, L501.9985 ####[facility] [address] [place], [address] GFR/1.73 sq M.predicted among non-blacks MDRD (S/P/Bld) [Vol rate/Area] 86 mL/min/{1.73_m2} Normal >60 [facility] Comment on above: Result Comment: Non- GFR Calc Performed By: #### L 500.4100, L100.0500, L500.4050, L501.9985 ####[facility] [address] [place], [address] Globulin (S) [Mass/Vol] 3.5 g/dL Normal 2.2-4.2 [facility] Comment on above: Performed By: #### L 500.4100, L100.0500, L500.4050, L501.9985 ####[facility] [address] [place], [address] Glucose [Mass/Vol] 83 mg/dL Normal 74-106 [facility] Comment on above: Performed By: #### L 500.4100, L100.0500, L500.4050, L501.9985 ####[facility] [address] [place], [address] Potassium [Moles/Vol] 4.0 mmol/L Normal 3.5-5.1 [facility] Comment on above: Performed By: #### L 500.4100, L100.0500, L500.4050, L501.9985 ####[facility] [address] [place], [address] Sodium [Moles/Vol] 136 mmol/L Normal 136-145 [facility] Comment on above: Performed By: #### L 500.4100, L100.0500, L500.4050, L501.9985 ####[facility] [address] [place], [address] T PROT 7.5 g/dL Normal 6.4-8.2 [facility] Comment on above: Performed By: #### L 500.4100, L100.0500, L500.4050, L501.9985 ####[facility] [address] [place], [address] Urea nitrogen [Mass/Vol] 17 mg/dL Normal 7-18 [facility] Comment on above: Performed By: #### L 500.4100, L100.0500, L500.4050, L501.9985 ####[facility] [address] [place], [address] Erythrocyte distribution wid th ratioOrdered By: HEALTH ASSESSMENT on 09-21-2024 Erythrocyte distribution width (RBC) [Ratio] 12.7 % 11.6-14.6 [facility] Erythrocyte distribution wid th standard deviationOrdered By: HEALTH ASSESSMENT on 09-21-2024 Erythrocyte distribution width (RBC) [Entitic vol] 41.6 fL 35.1-43.9 [facility] Estimated glomerular filtrat ion rate (GFR) AmericanOrdered By: HEALTH ASSESSMENT on 09-21-2024 Estimated GFR (MDRD) Amer 103 mL/min >60 [facility] Comment on above: GFR Calc Glomerular filtration rate ( GFR) estimationOrdered By: HEALTH ASSESSMENT on 09-21-2024 Estimated GFR (MDRD) Non-Af Amer 86 mL/min >60 [facility] Comment on above: Non- GFR Calc Glucose measurementOrdered B y: HEALTH ASSESSMENT on 09-21-2024 Glucose [Mass/Vol] 83 mg/dL 74-106 [facility] Hematocrit Auto (Bld) [Volum e fraction]Ordered By: HEALTH ASSESSMENT on 09-21-2024 Hematocrit (Bld) [Volume fraction] 46.8 % 40-54 [facility] Hemoglobin A1con 09-21-2024 HbA1c (Bld) [Mass fraction] 5.5 % Normal 3.8-5.6 [facility] Comment on above: Result Comment: Norm al < 5.7 % Prediabetic 5.7 - 6.4 % Diabetic >or= 6.5 % Please note range changes. Performed By: #### L 500.4100, L100.0500, L500.4050, L501.9924 ####[facility] [address] [place], [address] Hemoglobin A1c percentageOrd ered By: HEALTH ASSESSMENT on 09-21-2024 HbA1c (Bld) [Mass fraction] 5.5 % 3.8-5.6 [facility] Comment on above: Normal < 5.7 % Predi abetic 5.7 - 6.4 % Diabetic >or= 6.5 % Please note range changes. Hemoglobin measurementOrdere d By: HEALTH ASSESSMENT on 09-21-2024 Hemoglobin (Bld) [Mass/Vol] 15.0 g/dL 13.0-16.5 [facility] High density lipoprotein (HD L) measurementOrdered By: HEALTH ASSESSMENT on 09-21-2024 Cholesterol in HDL [Mass/Vol] 56 mg/dL >40 [facility] Comment on above: The drugs N-Acetylcy steine and Metamizole may falsely depress this assay. Reference Range HDL <40 mg/dL Low HDL Cholesterol HDL >or= 60 mg/dL High HDL Cholesterol Laboratory - Chemistry and C hemistry - challengeOrdered By: HEALTH ASSESSMENT on 09-21-2024 AST [Catalytic activity/Vol] 30 U/L 15-37 [facility] Lipid Profileon 09-21-2024 Cholesterol [Mass/Vol] 169 mg/dL Normal 200 [facility] Comment on above: Result Comment: <200 mg/dL Desirable 200-240 mg/dL Borderline >240 mg/dL High Risk Performed By: #### L 500.4100, L100.0500, L500.4050, L501.9985 ####[facility] [address] [place], [address] Cholesterol in HDL [Mass/Vol] 56 mg/dL Normal [facility] Comment on above: Result Comment: The drugs N-Acetylcysteine and Metamizole may falsely depress this assay. Reference Range HDL <40 mg/dL Low HDL Cholesterol HDL >or= 60 mg/dL High HDL Cholesterol Performed By: #### L 500.4100, L100.0500, L500.4050, L501.9985 ####[facility] [address] [place], [address] Cholesterol in LDL [Mass/Vol] 98 mg/dL Normal 0-130 [facility] Comment on above: Performed By: #### L 500.4100, L100.0500, L500.4050, L501.9985 ####[facility] [address] [place], [address] Cholesterol in VLDL [Mass/Vol] 15 mg/dL Normal 5-40 [facility] Comment on above: Performed By: #### L 500.4100, L100.0500, L500.4050, L501.9985 ####[facility] [address] [place], [address] Triglyceride [Mass/Vol] 74 mg/dL Normal [facility] Comment on above: Result Comment: The drugs N-Acetylcysteine and Metamizole may falsely depress this assay. Serum Triglycerides Reference Interval Normal <150 mg/dL Borderline high 150 - 199 mg/dL High 200 - 499 mg/dL Very High > or = 500 mg/dL Performed By: #### L 500.4100, L100.0500, L500.4050, L501.9985 ####[facility] [address] [place], [place], [id number] Low density lipoprotein (LDL ) cholesterol measurementOrdered By: HEALTH ASSESSMENT on 09-21-2024 Cholesterol in LDL [Mass/Vol] 98 mg/dL 0-130 [facility] MCV (mean corpuscular volume ) determinationOrdered By: HEALTH ASSESSMENT on 09-21-2024 MCV (RBC) [Entitic vol] 89.5 fL 80-94 [facility] Mean corpuscular hemoglobin (MCH) determinationOrdered By: HEALTH ASSESSMENT on 09-21-2024 MCH (RBC) [Entitic mass] 28.7 pg 27.0-32.0 [facility] Mean corpuscular hemoglobin concentration (MCHC) determinationOrdered By: HEALTH ASSESSMENT on 09-21-2024 MCHC (RBC) [Mass/Vol] 32.1 g/dL 32-36 [facility] Mean platelet volume determi nationOrdered By: HEALTH ASSESSMENT on 09-21-2024 Platelet mean volume (Bld) [Entitic vol] 10.4 fL 6.2-12.0 [facility] Platelet countOrdered By: HE ALTH ASSESSMENT on 09-21-2024 Platelets (Bld) [#/Vol] 216 10*3/uL 150-450 [facility] Potassium measurementOrdered By: HEALTH ASSESSMENT on 09-21-2024 Potassium [Moles/Vol] 4.0 mmol/L 3.5-5.1 [facility] RBC Auto (Bld) [#/Vol]Ordere d By: HEALTH ASSESSMENT on 09-21-2024 RBC (Bld) [#/Vol] 5.23 10*6/uL 4.6-6.[address] [facility] Serum anion gap measurementO rdered By: HEALTH ASSESSMENT on 09-21-2024 Anion gap [Moles/Vol] 7 mmol/L 5-15 [facility] Serum globulin measurementOr dered By: HEALTH ASSESSMENT on 09-21-2024 Globulin (S) [Mass/Vol] 3.5 g/dL 2.2-4.2 [facility] Serum or plasma alanine romano otransferase (ALT) measurementOrdered By: HEALTH ASSESSMENT on 09-21-2024 ALT [Catalytic activity/Vol] 42 U/L 16-61 [facility] Serum or plasma albumin stacey urement (mass/volume)Ordered By: [facility] ASSESSMENT on 09-21-2024 Albumin [Mass/Vol] 4.0 g/dL 3.2-5.0 [facility] Serum or plasma alkaline aide sphatase measurementOrdered By: HEALTH ASSESSMENT on 09-21-2024 ALP [Catalytic activity/Vol] 50 U/L 45-117 [facility] Serum or plasma calcium stacey urement (mass/volume)Ordered By: HEALTH ASSESSMENT on 09-21-2024 Calcium [Mass/Vol] 9.2 mg/dL 8.5-10.1 [facility] Serum or plasma cholesterol measurement (mass/volume)Ordered By: HEALTH ASSESSMENT on 09-21-2024 Cholesterol [Mass/Vol] 169 mg/dL <200 [facility] Comment on above: <200 mg/dL Desirable 200-240 mg/dL Borderline >240 mg/dL High Risk Serum or plasma creatinine m easurement (mass/volume)Ordered By: HEALTH ASSESSMENT on 09-21-2024 Creatinine [Mass/Vol] 0.99 mg/dL 0.70-1.30 [facility] Comment on above: The validity of the calculated GFR & GFRAA in patients over 70 years has not been determined. Clinical correlation is essential. Serum or plasma urea nitroge n measurement (mass/volume)Ordered By: HEALTH ASSESSMENT on 09-21-2024 Urea nitrogen [Mass/Vol] 17 mg/dL 7-18 [facility] Sodium levelOrdered By: HEAL TH ASSESSMENT on 09-21-2024 Sodium [Moles/Vol] 136 mmol/L 136-145 [facility] Total proteinOrdered By: ASHWINI [facility] ASSESSMENT on 09-21-2024 Protein [Mass/Vol] 7.5 g/dL 6.4-8.2 [facility] Triglycerides measurementOrd ered By: HEALTH ASSESSMENT on 09-21-2024 Triglyceride [Mass/Vol] 74 mg/dL <199 [facility] Comment on above: The drugs N-Acetylcy steine and Metamizole may falsely depress this assay.Serum Triglycerides Reference Interval Normal <150 mg/dL Borderline high 150 - 199 mg/dL High 200 - 499 mg/dL Very High > or = 500 mg/dL Very low density lipoprotein (VLDL) cholesterol measurementOrdered By: HEALTH ASSESSMENT on 09-21-2024 VLDL Cholesterol 15 mg/dL 5-40 [facility] White blood cell (WBC) count Ordered By: [facility] ASSESSMENT on 09-21-2024 WBC (Bld) [#/Vol] 4.6 10*3/uL 4.4-11.0 [facility] Knee 4 or More Viewson 05-16 Knee 4 or More Views [facility] [address] [place] [address] Knee 4 or More Views MR#: [id number] Acct: [id number] Name: LAVINIA URIOSTEGUI JrKm Rep #: [id number] : 1975 48 From: Asad Suarez MD PCP: Dr. Valdo Fuentes MD Status: [facility] Study: Knee 4 or More Views Date of Exam: 05/16/24 Exam# [id number] Ordering Dr: Valdo Fuentes MD [id number] STUDY: X-RAY - RIGHT KNEE REASON FOR [...] Signed: Asad Suarez MD at 14:23 EDT Reading Location ID and State: [address] [place] [id number] , Service support , CC: Dr. Valdo Fuentes MD Woods Manager: Signed Normal [facility] Testosterone, Total / Freeon 04-09-2024 TESTOSTER,FREE 53.66 ng/dL Abnormal 5.00-21.00 [facility] Comment on above: Order Comment: N Performed By: #### L 3100.5310, L500.4100, L501.9910, L100.0100, L500.2500 ####[facility] [address] [place], [address] TESTOSTERONE, T 1040 ng/dL High 264-216 [facility] Comment on above: Order Comment: N Result Comment: Adul t male reference interval is based on a population of healthy nonobese males (BMI <30) between 19 and 39 years old. Jeffrey et.al. JCEM 2017,102;8420-8908. PMID: [id number]. Performed By: #### L 3100.5310, L500.4100, L501.9910, L100.0100, L500.2500 ####[facility] [address] [place], [address] TESTOSTERONE,%F 5.16 High 1.50-4.20 [facility] Comment on above: Order Comment: N Result Comment: Perf ormed at: - [facility] [id number] Display Department Manager: Reji Rahman PhD, Phone: [phone] Performed at: [facility] [address] [id number] Display Department Manager: Nadia Green MD, Phone: [phone] Performed By: #### L 3100.5310, L500.4100, L501.9910, L100.0100, L500.2500 ####[facility] [address] [place], [address] Basic Metabolic Profile (BMP )on 04-04-2024 BUN/CRE 16.9 RATIO Normal 10-20 [facility] Comment on above: Performed By: #### L 3100.5310, L500.4100, L501.9910, L100.0100, L500.2500 #### [facility] [address] [place], [address] CA,Total 9.4 mg/dL Normal 8.5-10.1 [facility] Comment on above: Performed By: #### L 3100.5310, L500.4100, L501.9910, L100.0100, L500.2500 #### [facility] [address] [place], [address] Chloride [Moles/Vol] 102 mmol/L Normal 98-107 [facility] Comment on above: Performed By: #### L 3100.5310, L500.4100, L501.9910, L100.0100, L500.2500 #### [facility] [address] [place], [address] CO2 [Moles/Vol] 28.0 mmol/L Normal 21.0-32.0 [facility] Comment on above: Performed By: #### L 3100.5310, L500.4100, L501.9910, L100.0100, L500.2500 #### [facility] [address] [place], [address] Creatinine [Mass/Vol] 0.95 mg/dL Normal 0.70-1.30 [facility] Comment on above: Result Comment: The validity of the calculated GFR GFRAA in patients over 70 years has not been determined. Clinical correlation is essential. Performed By: #### L 3100.5310, L500.4100, L501.9910, L100.0100, L500.2500 #### [facility] [address] [facility] [address] EST GFR - AA 109 mL/min Normal >60 [facility] Comment on above: Result Comment: Afri can [place] GFR Calc Performed By: #### L 3100.5310, L500.4100, L501.9910, L100.0100, L500.2500 #### [facility] [address] [place] [address] GAP 4 Low 5-15 [facility] Comment on above: Performed By: #### L 3100.5310, L500.4100, L501.9910, L100.0100, L500.2500 #### [facility] [address] [place] [id number] GFR/1.73 sq M.predicted among non-blacks MDRD (S/P/Bld) [Vol rate/Area] 90 mL/min/{1.73_m2} Normal >60 [facility] Comment on above: Result Comment: Non- GFR Calc Performed By: #### L 3100.5310, L500.4100, L501.9910, L100.0100, L500.2500 #### [facility] [address] [facility] [address] Glucose [Mass/Vol] 92 mg/dL Normal 74-106 [facility] Comment on above: Performed By: #### L 3100.5310, L500.4100, L501.9910, L100.0100, L500.2500 #### [facility] [address] [place], [address] Potassium [Moles/Vol] 4.8 mmol/L Normal 3.5-5.1 [facility] Comment on above: Performed By: #### L 3100.5310, L500.4100, L501.9910, L100.0100, L500.2500 #### [facility] [address] [place], [address] Sodium [Moles/Vol] 134 mmol/L Low 136-145 [facility] Comment on above: Performed By: #### L 3100.5310, L500.4100, L501.9910, L100.0100, L500.2500 #### [facility] [address] [place], [address] Urea nitrogen [Mass/Vol] 16 mg/dL Normal 7-18 [facility] Comment on above: Performed By: #### L 3100.5310, L500.4100, L501.9910, L100.0100, L500.2500 #### [facility] [address] [place], [address] CBC W/Diff, Automatedon 09-0 4-2023 Absolute Lymph 0.79 X10 3/uL Low 0.83-4.51 [facility] Comment on above: Performed By: #### L 3100.5310, L500.4100, L501.9910, L100.0100, L500.2500 #### [facility] [address] [place], [address] Absolute Neut 8.4 X10 3/uL High 2.0-7.7 [facility] Comment on above: Performed By: #### L 3100.5310, L500.4100, L501.9910, L100.0100, L500.2500 #### [facility] [address] [place], [address] Basophils/100 WBC (Bld) 0.7 % Normal 0-1 [facility] Comment on above: Performed By: #### L 3100.5310, L500.4100, L501.9910, L100.0100, L500.2500 #### [facility] [address] [place], [address] Eosinophils/100 WBC (Bld) 0.9 % Normal 0-5 [facility] Comment on above: Performed By: #### L 3100.5310, L500.4100, L501.9910, L100.0100, L500.2500 #### [facility] [address] [facility] [place], [address] Erythrocyte distribution width (RBC) [Ratio] 13.0 % Normal 11.6-14.6 [facility] Comment on above: Performed By: #### L 3100.5310, L500.4100, L501.9910, L100.0100, L500.2500 #### [facility] [address] [place], [address] Hematocrit (Bld) [Volume fraction] 46.4 % Normal 40-54 [facility] Comment on above: Performed By: #### L 3100.5310, L500.4100, L501.9910, L100.0100, L500.2500 #### [facility] [address] [place], [address] Hemoglobin (Bld) [Mass/Vol] 15.2 g/dL Normal 13.0-16.5 [facility] Comment on above: Performed By: #### L 3100.5310, L500.4100, L501.9910, L100.0100, L500.2500 #### [facility] [address] [place], [address] IG% 0.300 Normal 0.0-0.9 [facility] Comment on above: Result Comment: IG% - Immature Granulocytes (promyelocytes, myelocytes and metamyelocytes) > 1% indicates that a LEFT SHIFT is Present. Performed By: #### L 3100.5310, L500.4100, L501.9910, L100.0100, L500.2500 #### [facility] [address] [place], [address] Lymphocytes/100 WBC (Bld) 7.8 % Low 19-41 [facility] Comment on above: Performed By: #### L 3100.5310, L500.4100, L501.9910, L100.0100, L500.2500 #### [facility] [address] [place], [address] MCH (RBC) [Entitic mass] 29.2 pg Normal 27.0-32.0 [facility] Comment on above: Performed By: #### L 3100.5310, L500.4100, L501.9910, L100.0100, L500.2500 #### [facility] [address] [place], [address] MCHC (RBC) [Mass/Vol] 32.8 g/dL Normal 32-36 [facility] Comment on above: Performed By: #### L 3100.5310, L500.4100, L501.9910, L100.0100, L500.2500 #### [facility] [address] [place], [address] MCV (RBC) [Entitic vol] 89.1 fL Normal 80-94 [facility] Comment on above: Performed By: #### L 3100.5310, L500.4100, L501.9910, L100.0100, L500.2500 #### [facility] [address] [place], [address] Monocytes/100 WBC (Bld) 6.5 % Normal 0-10 [facility] Comment on above: Performed By: #### L 3100.5310, L500.4100, L501.9910, L100.0100, L500.2500 #### [facility] [address] [place], [address] Neutrophils/100 WBC (Bld) 83.8 % High 47-70 [facility] Comment on above: Performed By: #### L 3100.5310, L500.4100, L501.9910, L100.0100, L500.2500 #### [facility] [address] [place], [address] Nucleated RBC (Bld) [#/Vol] 0 10*3/uL Normal 0-5 [facility] Comment on above: Performed By: #### L 3100.5310, L500.4100, L501.9910, L100.0100, L500.2500 #### [facility] [address] [place], [address] Platelet mean volume (Bld) [Entitic vol] 11.0 fL Normal 6.2-12.0 [facility] Comment on above: Performed By: #### L 3100.5310, L500.4100, L501.9910, L100.0100, L500.2500 #### [facility] [address] [place], [address] Platelets (Bld) [#/Vol] 203 10*3/uL Normal 150-450 [facility] Comment on above: Performed By: #### L 3100.5310, L500.4100, L501.9910, L100.0100, L500.2500 #### [facility] [address] [place], [address] RBC (Bld) [#/Vol] 5.21 10*6/uL Normal 4.6-6.[address] [facility] Comment on above: Performed By: #### L 3100.5310, L500.4100, L501.9910, L100.0100, L500.2500 #### [facility] [address] [place], [address] RDW SD 42.4 fl Normal 35.1-43.9 [facility] Comment on above: Performed By: #### L 3100.5310, L500.4100, L501.9910, L100.0100, L500.2500 #### [facility] [address] [place], [address] WBC (Bld) [#/Vol] 10.1 10*3/uL Normal 4.4-11.[address] [facility] Comment on above: Performed By: #### L 3100.5310, L500.4100, L501.9910, L100.0100, L500.2500 #### [facility] [address] [place], [address] Lipid Profileon 04-04-2024 Cholesterol [Mass/Vol] 150 mg/dL Normal 200 [facility] Comment on above: Result Comment: <200 mg/dL Desirable 200-240 mg/dL Borderline >240 mg/dL High Risk Performed By: #### L 3100.5310, L500.4100, L501.9910, L100.0100, L500.2500 #### [facility] [address] [place], [address] Cholesterol in HDL [Mass/Vol] 59 mg/dL Normal [facility] Comment on above: Result Comment: The drugs N-Acetylcysteine and Metamizole may falsely depress this assay. Reference Range HDL <40 mg/dL Low HDL Cholesterol HDL >or= 60 mg/dL High HDL Cholesterol Performed By: #### L 3100.5310, L500.4100, L501.9910, L100.0100, L500.2500 #### [facility] [address] [place], [address] Cholesterol in LDL [Mass/Vol] 71 mg/dL Normal 0-130 [facility] Comment on above: Performed By: #### L 3100.5310, L500.4100, L501.9910, L100.0100, L500.2500 #### [facility] [address] [place], [address] Cholesterol in VLDL [Mass/Vol] 20 mg/dL Normal 5-40 [facility] Comment on above: Performed By: #### L 3100.5310, L500.4100, L501.9910, L100.0100, L500.2500 #### [facility] [address] [place], [address] Triglyceride [Mass/Vol] 101 mg/dL Normal [facility] Comment on above: Result Comment: The drugs N-Acetylcysteine and Metamizole may falsely depress this assay. Serum Triglycerides Reference Interval Normal <150 mg/dL Borderline high 150 - 199 mg/dL High 200 - 499 mg/dL Very High > or = 500 mg/dL Performed By: #### L 3100.5310, L500.4100, L501.9910, L100.0100, L500.2500 #### [facility] [facility] [address] [place], [address] PSA,Total - Annual Screenon 04-04-2024 PSA,TOT SCREEN 0.98 ng/mL Normal 0.00-4.00 [facility] Comment on above: Result Comment: This test was performed using the TPSA assay method for the DNAtriX chemistry system. Values obtained with different assay methods cannot be used interchangably. When changing PSA assays in the course of monitoring a patient, additional sequential testing should be carried out to confirm baseline values. Performed By: #### L 3100.5310, L500.4100, L501.9910, L100.0100, L500.2500 ####[facility] [address] [place], [address] Abd Aortic/IVC Duplex scanon 03-23-2024 Abd Aortic/IVC Duplex scan [facility] [address] [place] [address] Abd Aortic/IVC Duplex scan 03/23/24 0821 MR#: [id number] Acct: [id number] Name: LAVINIA URIOSTEGUI Jr. Rep #: [id number] : 1975 48 From: Junaid Whitney MD [...] MD Date Dictated: 03/23/24820 Date Transcribed: 03/26/241806 Woods Manager: Signed Normal [facility] Basophil percentageOrdered B y: Junaid Whitney on 09-29-2023 Chloride [Moles/Vol] 111 mmol/L 98-107 [facility] Glucose [Mass/Vol] 89 mg/dL 74-106 [facility] Hemoglobin (Bld) [Mass/Vol] 14.9 g/dL 13.0-16.5 [facility] Potassium [Moles/Vol] 4.6 mmol/L 3.5-5.1 [facility] Sodium [Moles/Vol] 138 mmol/L 136-145 [facility] WBC (Bld) [#/Vol] 4.7 10*3/uL 4.4-11.0 [facility] Determination of erythrocyte mean corpuscular volume (MCV)Ordered By: Junaid Whitney on 09-29-2023 MCV (RBC) [Entitic vol] 87.8 fL 80-94 [facility] Erythrocyte distribution wid th ratioOrdered By: Junaid Whitney on 09-29-2023 Erythrocyte distribution width (RBC) [Ratio] 12.5 % 11.6-14.6 [facility] Erythrocyte distribution wid th standard deviationOrdered By: Juanid Whitney on 09-29-2023 Erythrocyte distribution width (RBC) [Entitic vol] 40.8 fL 35.1-43.9 [facility] Hematocrit Auto (Bld) [Volum e fraction]Ordered By: Junaid Whitney on 09-29-2023 Hematocrit (Bld) [Volume fraction] 45.5 % 40-54 [facility] - Chemistry and C hemistry - challengeOrdered By: Junaid Whitney on 09-29-2023 CO2 [Moles/Vol] 26.0 mmol/L 21.0-32.0 [facility] Urea nitrogen/Creatinine [Mass ratio] 12.4 mg/mg 10-20 [facility] - Hematology and Cell countsOrdered By: Junaid Whitney on 09-29-2023 MCH (RBC) [Entitic mass] 28.8 pg 27.0-32.0 [facility] MCHC (RBC) [Mass/Vol] 32.7 g/dL 32-36 [facility] Platelet mean volume (Bld) [Entitic vol] 10.7 fL 6.2-12.0 [facility] Platelets (Bld) [#/Vol] 218 10*3/uL 150-450 [facility] No Panel InformationOrdered By: Junaid Whitney on 09-29-2023 Estimated Creatinine Clearance Calc 112.33 ml/min [facility] Estimated GFR (MDRD) Amer 106 mL/min >60 [facility] Comment on above: GFR Calc Estimated GFR (MDRD) Non-Af Amer 88 mL/min >60 [facility] Comment on above: Non- GFR Calc RBC Auto (Bld) [#/Vol]Ordere d By: Junaid Whitney on 09-29-2023 RBC (Bld) [#/Vol] 5.18 10*6/uL 4.6-6.[address] [facility] Serum or plasma calcium stacey urement (mass/volume)Ordered By: Junaid Whitney on 09-29-2023 Calcium [Mass/Vol] 9.0 mg/dL 8.5-10.1 [facility] Serum or plasma creatinine m easurement (mass/volume)Ordered By: Junaid Whitney on 09-29-2023 Creatinine [Mass/Vol] 0.97 mg/dL 0.70-1.30 [facility] Comment on above: The validity of the calculated GFR & GFRAA in patients over 70 years has not been determined. Clinical correlation is essential. Serum or plasma urea nitroge n measurement (mass/volume)Ordered By: Junaid Whitney on 09-29-2023 Urea nitrogen [Mass/Vol] 12 mg/dL 7-18 [facility] Thin prep Papanicolaou smear with manual screeningOrdered By: Junaid Whitney on 09-29-2023 Thin prep Papanicolaou smear with manual screening 1 5-15 [facility] Basophil percentageOrdered B y: HEALTH ASSESSMENT on 09-06-2023 Bilirubin [Mass/Vol] 1.20 mg/dL 0.20-1.00 [facility] Comment on above: For patients on eltr ombopag therapy, use of Dimension [place] TBIL is not recommended. Chloride [Moles/Vol] 105 mmol/L 98-107 [facility] Cholesterol [Mass/Vol] 164 mg/dL <200 [facility] Comment on above: <200 mg/dL Desirable 200-240 mg/dL Borderline >240 mg/dL High Risk Glucose [Mass/Vol] 87 mg/dL 74-106 [facility] Hemoglobin (Bld) [Mass/Vol] 15.1 g/dL 13.0-16.5 [facility] Potassium [Moles/Vol] 4.0 mmol/L 3.5-5.1 [facility] Protein [Mass/Vol] 8.3 g/dL 6.4-8.2 [facility] Sodium [Moles/Vol] 137 mmol/L 136-145 [facility] Triglyceride [Mass/Vol] 74 mg/dL <199 [facility] Comment on above: The drugs N-Acetylcy steine and Metamizole may falsely depress this assay.Serum Triglycerides Reference Interval Normal <150 mg/dL Borderline high 150 - 199 mg/dL High 200 - 499 mg/dL Very High > or = 500 mg/dL WBC (Bld) [#/Vol] 5.9 10*3/uL 4.4-11.0 [facility] Determination of erythrocyte mean corpuscular volume (MCV)Ordered By: HEALTH ASSESSMENT on 09-06-2023 MCV (RBC) [Entitic vol] 89.7 fL 80-94 [facility] Erythrocyte distribution wid th ratioOrdered By: HEALTH ASSESSMENT on 09-06-2023 Erythrocyte distribution width (RBC) [Ratio] 12.7 % 11.6-14.6 [facility] Erythrocyte distribution wid th standard deviationOrdered By: HEALTH ASSESSMENT on 09-06-2023 Erythrocyte distribution width (RBC) [Entitic vol] 42.0 fL 35.1-43.9 [facility] Hematocrit Auto (Bld) [Volum e fraction]Ordered By: HEALTH ASSESSMENT on 09-06-2023 Hematocrit (Bld) [Volume fraction] 47.0 % 40-54 [facility] - Chemistry and C hemistry - challengeOrdered By: HEALTH ASSESSMENT on 09-06-2023 Albumin/Globulin [Mass ratio] 1.1 {ratio} 0.9-2.4 [facility] ALP [Catalytic activity/Vol] 41 U/L 45-117 [facility] ALT [Catalytic activity/Vol] 39 U/L 16-61 [facility] Cholesterol in HDL [Mass/Vol] 56 mg/dL >40 [facility] Comment on above: The drugs N-Acetylcy steine and Metamizole may falsely depress this assay. Reference Range HDL <40 mg/dL Low HDL Cholesterol HDL >or= 60 mg/dL High HDL Cholesterol Cholesterol in LDL [Mass/Vol] 93 mg/dL 0-130 [facility] CO2 [Moles/Vol] 28.0 mmol/L 21.0-32.0 [facility] Globulin (S) [Mass/Vol] 4.0 g/dL 2.2-4.2 [facility] Urea nitrogen/Creatinine [Mass ratio] 15.4 mg/mg 10-20 [facility] - Hematology and Cell countsOrdered By: HEALTH ASSESSMENT on 09-06-2023 MCH (RBC) [Entitic mass] 28.8 pg 27.0-32.0 [facility] MCHC (RBC) [Mass/Vol] 32.1 g/dL 32-36 [facility] Platelet mean volume (Bld) [Entitic vol] 11.1 fL 6.2-12.0 [facility] Platelets (Bld) [#/Vol] 227 10*3/uL 150-450 [facility] No Panel InformationOrdered By: HEALTH ASSESSMENT on 09-06-2023 Estimated GFR (MDRD) Amer 98 mL/min >60 [facility] Comment on above: GFR Calc Estimated GFR (MDRD) Non-Af Amer 81 mL/min >60 [facility] Comment on above: Non- GFR Calc VLDL Cholesterol 15 mg/dL 5-40 [facility] RBC Auto (Bld) [#/Vol]Ordere d By: HEALTH ASSESSMENT on 09-06-2023 RBC (Bld) [#/Vol] 5.24 10*6/uL 4.6-6.[address] [facility] Serum or plasma calcium stacey urement (mass/volume)Ordered By: HEALTH ASSESSMENT on 09-06-2023 Calcium [Mass/Vol] 9.6 mg/dL 8.5-10.1 [facility] Serum or plasma creatinine m easurement (mass/volume)Ordered By: HEALTH ASSESSMENT on 09-06-2023 Creatinine [Mass/Vol] 1.04 mg/dL 0.70-1.30 [facility] Comment on above: The validity of the calculated GFR & GFRAA in patients over 70 years has not been determined. Clinical correlation is essential. Serum or plasma nicotine ciarra surement (mass/volume)Ordered By: HEALTH ASSESSMENT on 09-06-2023 Nicotine [Mass/Vol] <1.0 ug/mL . [facility] Comment on above: This test was develo ped and its performance characteristicsdetermined by [facility]. It has not been cleared orapproved by the Food and Drug Administration.Nicotine levels greater than 2.0 are consistent with theuse of tobacco or tobacco cessation products. Serum or plasma urea nitroge n measurement (mass/volume)Ordered By: HEALTH ASSESSMENT on 09-06-2023 Urea nitrogen [Mass/Vol] 16 mg/dL 7-18 [facility] Thin prep Papanicolaou smear with manual screeningOrdered By: HEALTH ASSESSMENT on 09-06-2023 Thin prep Papanicolaou smear with manual screening 4.3 g/dL 3.2-5.0 [facility] Thin prep Papanicolaou smear with manual screening 7 U/L 15-37 [facility] Thin prep Papanicolaou smear with manual screening 4 5-15 [facility] Thin prep Papanicolaou smear with manual screening 138.8 ug/mL . [facility] Comment on above: This test was develo ped and its performance characteristicsdetermined by [facility]. It has not been cleared orapproved by the Food and Drug Administration.Cotinine levels greater than 20.0 are consistent with theuse of tobacco or tobacco cessation products.Performed at: - [facility] [id number] Director: Nadia Green MD, Phone: [phone] Whole blood hemoglobin A1c/t otal hemoglobin ratio (mass fraction)Ordered By: HEALTH ASSESSMENT on 09-06-2023 HbA1c (Bld) [Mass fraction] 5.2 % 3.8-5.6 [facility] Comment on above: Normal < 5.7 % Predi abetic 5.7 - 6.4 % Diabetic >or= 6.5 % Please note range changes. Laboratory - Chemistry and C hemistry - challengeOrdered By: Valdo Fuentes on 04-22-2023 Free T4 [Mass/Vol] 0.70 ng/dL 0.76-1.46 [facility] No Panel InformationOrdered By: Valdo Fuentes on 04-22-2023 Free Triiodothyronine (T3) pg/dL 2.6 pg/mL 2.18-3.98 [facility] Thyroid Stimulating Hormone (TSH) 1.73 uIU/mL 0.358-3.74 [facility] CBC W Auto Differential pane l (Bld)on 04-16-2023 Basophils (Bld) [#/Vol] 0.05 10*3/uL Normal <0.11 [facility] Comment on above: Order Comment: Speci men Type: BLOOD SPECIMEN Ordering Facility: [facility] Address: [address] [address] Performed By: #### 5 7021-8 #### [facility] CLIA [id number] [address] [place] [address] [place] Basophils/100 WBC (Bld) 0.7 % Normal [facility] Comment on above: Order Comment: Speci men Type: BLOOD SPECIMEN Ordering Facility: [facility] Address: [address] [address] Performed By: #### 5 7021-8 #### [facility] CLIA [id number] [address] [place] [address] [place] Differential cell count method Nom (Bld) Auto Normal [facility] Comment on above: Order Comment: Graciai men Type: BLOOD SPECIMEN Ordering Facility: [facility] Address: [address] [address] Performed By: #### 5 7021-8 #### [facility] CLIA [id number] [address] [place] [address] [place] Eosinophils (Bld) [#/Vol] 0.04 10*3/uL Normal <0.46 [facility] Comment on above: Order Comment: Speci men Type: BLOOD SPECIMEN Ordering Facility: [facility] Address: [address] [address] Performed By: #### 5 7021-8 #### [facility] CLIA [id number] [address] [place] [address] [place] Eosinophils/100 WBC (Bld) 0.6 % Normal [facility] Comment on above: Order Comment: Speci men Type: BLOOD SPECIMEN Ordering Facility: [facility] Address: [address] [place] [address] Performed By: #### 5 7021-8 #### [facility] CLIA [id number] [address] [place] [address] [place] Erythrocyte distribution width (RBC) [Ratio] 12.5 % Normal 11.5-15.0 [facility] Comment on above: Order Comment: Speci men Type: BLOOD SPECIMEN Ordering Facility: [facility] Address: [address] [place] [address] Performed By: #### 5 7021-8 #### [facility] CLIA [id number] [address] [place] [address] [place] Hematocrit (Bld) [Volume fraction] 41.4 % Normal 39.0-51.0 [facility] Comment on above: Order Comment: Speci men Type: BLOOD SPECIMEN Ordering Facility: [facility] Address: [address] [address] Performed By: #### 5 7021-8 #### [facility] CLIA [id number] [address] [place] [address] [place] Hemoglobin (Bld) [Mass/Vol] 14.1 g/dL Normal 13.0-17.0 [facility] Comment on above: Order Comment: Speci men Type: BLOOD SPECIMEN Ordering Facility: [facility] Address: [address] [place], [place] [id number] Performed By: #### 5 7021-8 #### [facility] CLIA [id number] [address] [place] [address] [place] Immature granulocytes (Bld) [#/Vol] 10*3/uL Normal <0.10 [facility] Comment on above: Order Comment: Speci men Type: BLOOD SPECIMEN Ordering Facility: [facility] Address: [address] [address] Performed By: #### 5 7021-8 #### [facility] CLIA [id number] [address] [place] [address] [place] Immature granulocytes/100 WBC (Bld) 0.3 % Normal [facility] Comment on above: Order Comment: Speci men Type: BLOOD SPECIMEN Ordering Facility: [facility] Address: [address] [address] Performed By: #### 5 7021-8 #### [facility] CLIA [id number] [address] [place] [address] [place] Lymphocytes (Bld) [#/Vol] 1.16 10*3/uL Normal 1.00-4.00 [facility] Comment on above: Order Comment: Speci men Type: BLOOD SPECIMEN Ordering Facility: [facility] Address: [address] [address] Performed By: #### 5 7021-8 #### [facility] CLIA [id number] [address] [place] [address] [place] Lymphocytes/100 WBC (Bld) 17.0 % Normal [facility] Comment on above: Order Comment: Speci men Type: BLOOD SPECIMEN Ordering Facility: [facility] Address: [address] [address] Performed By: #### 5 7021-8 #### [facility] CLIA [id number] [address] [place] [address] [place] MCH (RBC) [Entitic mass] 29.6 pg Normal 26.0-34.0 [facility] Comment on above: Order Comment: Speci men Type: BLOOD SPECIMEN Ordering Facility: [facility] Address: [address] [address] Performed By: #### 5 7021-8 #### [facility] CLIA [id number] [address] [place] [address] [place] MCHC (RBC) [Mass/Vol] 34.1 g/dL Normal 30.5-36.0 [facility] Comment on above: Order Comment: Speci men Type: BLOOD SPECIMEN Ordering Facility: [facility] Address: [address] [address] Performed By: #### 5 7021-8 #### [facility] CLIA [id number] [address] [place] [address] [place] MCV (RBC) [Entitic vol] 86.8 fL Normal 80.0-100.0 [facility] Comment on above: Order Comment: Speci men Type: BLOOD SPECIMEN Ordering Facility: [facility] Address: [address] [address] Performed By: #### 5 7021-8 #### [facility] CLIA [id number] [address] [place] [address] [place] Monocytes (Bld) [#/Vol] 0.31 10*3/uL Normal <0.87 [facility] Comment on above: Order Comment: Speci men Type: BLOOD SPECIMEN Ordering Facility: [facility] Address: [address] [address] Performed By: #### 5 7021-8 #### [facility] CLIA [id number] [address] [place] [address] [place] Monocytes/100 WBC (Bld) 4.6 % Normal [facility] Comment on above: Order Comment: Speci men Type: BLOOD SPECIMEN Ordering Facility: [facility] Address: [address] [place] [address] Performed By: #### 5 7021-8 #### [facility] CLIA [id number] [address] [place] [address] [place] Neutrophils (Bld) [#/Vol] 5.23 10*3/uL Normal 1.45-7.50 [facility] Comment on above: Order Comment: Speci men Type: BLOOD SPECIMEN Ordering Facility: [facility] Address: [address] [address] Performed By: #### 5 7021-8 #### [facility] CLIA [id number] [address] [place] [address] [place] Neutrophils/100 WBC (Bld) 76.8 % Normal [facility] Comment on above: Order Comment: Speci men Type: BLOOD SPECIMEN Ordering Facility: [facility] Address: [address] [place] [address] Performed By: #### 5 7021-8 #### [facility] CLIA [id number] [address] [place] [address] [place] Nucleated RBC (Bld) [#/Vol] 10*3/uL Normal <0.01 [facility] Comment on above: Order Comment: Speci men Type: BLOOD SPECIMEN Ordering Facility: [facility] Address: [address] [place] [address] Performed By: #### 5 7021-8 #### [facility] CLIA [id number] [address] [place] [address] [place] Nucleated RBC/100 WBC (Bld) [Ratio] 0.0 /100 WBC Normal [facility] Comment on above: Order Comment: Speci men Type: BLOOD SPECIMEN Ordering Facility: [facility] Address: [address] [address] Performed By: #### 5 7021-8 #### [facility] CLIA [id number] [address] [place] [address] [place] Platelet mean volume (Bld) [Entitic vol] 10.7 fL Normal 9.0-12.7 [facility] Comment on above: Order Comment: Speci men Type: BLOOD SPECIMEN Ordering Facility: [facility] Address: [address] [place] [address] Performed By: #### 5 7021-8 #### [facility] CLIA [id number] [address] [place] [address] [place] [facility] [place] Platelets (Bld) [#/Vol] 178 10*3/uL Normal 150-400 [facility] Comment on above: Order Comment: Speci men Type: BLOOD SPECIMEN Ordering Facility: [facility] Address: [address] [place] [address] Performed By: #### 5 7021-8 #### [facility] CLIA [id number] [address] [place] [address] [place] RBC (Bld) [#/Vol] 4.77 10*6/uL Normal 4.20-6.00 [facility] Comment on above: Order Comment: Speci men Type: BLOOD SPECIMEN Ordering Facility: [facility] Address: [address] [place] [address] Performed By: #### 5 7021-8 #### [facility] CLIA [id number] [address] [place] [address] [place] WBC (Bld) [#/Vol] 6.81 10*3/uL Normal 3.70-11.00 [facility] Comment on above: Order Comment: Speci men Type: BLOOD SPECIMEN Ordering Facility: [facility] Address: [address] [place] [address] Performed By: #### 5 7021-8 #### [facility] CLIA [id number] [address] [place] [address] BRAIN WO IVCONon 04-16-[address] BRAIN WO IVCON * * *Final Report* * * DATE OF EXAM: Apr 16 2023 8:34PM [facility] 0504 - CT BRAIN WO IVCON / [...] is intact. IMPRESSION: No acute intracranial findings. Woods Manager: PSCB Transcribe Date/Time: Apr 16 2023 8:37P Dictated by : TOBI TROTTER MD This examination was interpreted and the report reviewed and electronically signed by: TOBI TROTTER MD on Apr 16 2023 9:00PM EST [id number] Normal [facility] CT CHEST W IVCON PEon 2022 CT CHEST W IVCON PE * * *Final Report* * * DATE OF EXAM: Apr 16 2023 8:34PM [facility] 0540 - CT CHEST W IVCON PE [...] al., J Am Sunshine Radiol 12:143-50 (2015). Woods Manager: PSCBindu Transcribe Date/Time: Apr 16 2023 8:36P Dictated by : TOBI TROTTER MD This examination was interpreted and the report reviewed and electronically signed by: TOBI TROTTER MD on Apr 16 2023 9:05PM EST [id number] Normal [facility] Comprehensive metabolic 2000 panelon 04-16-2023 Albumin [Mass/Vol] 4.1 g/dL Normal 3.2-5.0 [facility] Comment on above: Order Comment: Romero vickers Type: BLOOD SPECIMEN Ordering Facility: [facility] Address: [address] [id number] Performed By: #### 2 4323-8, 93863-2 #### [facility] CLIA [id number] [address] [place] [address] [place] ALP [Catalytic activity/Vol] 38 U/L Low 45-117 [facility] Comment on above: Order Comment: Romero vickers Type: BLOOD SPECIMEN Ordering Facility: [facility] Address: [address] [place] [address] Performed By: #### 2 4323-8, #### [facility] CLIA [id number] [address] [place] [address] [place] ALT [Catalytic activity/Vol] 32 U/L Normal 13-61 [facility] Comment on above: Order Comment: Romero vickers Type: BLOOD SPECIMEN Ordering Facility: [facility] Address: [address] [phone] Result Comment: Resu lts may be falsely depressed after the administration of Sulfasalazine and/or Sulfapyridine. Performed By: #### 2 4323-8, #### [facility] CLIA [id number] [address] [place] [address] [place] Anion gap [Moles/Vol] 7 mmol/L Normal 5-16 [facility] Comment on above: Order Comment: Speci men Type: BLOOD SPECIMEN Ordering Facility: [facility] Address: [address] [place] [address] Performed By: #### 2 4328, #### [facility] CLIA [id number] [address] [place] [address] [place] AST [Catalytic activity/Vol] 24 U/L Normal 8-34 [facility] Comment on above: Order Comment: Graciai men Type: BLOOD SPECIMEN Ordering Facility: [facility] Address: [address] [place] [address] Result Comment: Resu lts may be falsely depressed after the administration of Sulfasalazine and/or Sulfapyridine. Performed By: #### 2 4328, #### [facility] CLIA [id number] [address] [place] [address] [place] Bilirubin [Mass/Vol] 0.8 mg/dL Normal 0.2-1.0 [facility] Comment on above: Order Comment: Graciai alee Type: BLOOD SPECIMEN Ordering Facility: [facility] Address: [address] [place] [address] Performed By: #### 2 432-8, #### [facility] CLIA [id number] [address] [place] [address] [place] Calcium [Mass/Vol] 9.3 mg/dL Normal 8.5-10.5 [facility] Comment on above: Order Comment: Graciai alee Type: BLOOD SPECIMEN Ordering Facility: [facility] Address: [address] [place] [address] Performed By: #### 2 4328, #### [facility] CLIA [id number] [address] [place] [address] [place] Chloride [Moles/Vol] 104 mmol/L Normal 98-107 [facility] Comment on above: Order Comment: Speci men Type: BLOOD SPECIMEN Ordering Facility: [facility] Address: [address] [place] [address] Performed By: #### 2 4323-8, #### [facility] CLIA [id number] [address] [place] [address] [place] CO2 [Moles/Vol] 28 mmol/L Normal 21-32 [facility] Comment on above: Order Comment: Speci men Type: BLOOD SPECIMEN Ordering Facility: [facility] Address: [address] [place] [address] Performed By: #### 2 4323-8, #### [facility] CLIA [id number] [address] [place] [address] [place] Creatinine [Mass/Vol] 1.08 mg/dL Normal 0.50-1.40 [facility] Comment on above: Order Comment: Speci men Type: BLOOD SPECIMEN Ordering Facility: [facility] Address: [address] [place] [address] Result Comment: Felicia ents receiving either N-Acetylcysteine (NAC) or Metamizole prior to venipuncture, may have falsely depressed results. Performed By: #### 2 4323-8, #### [facility] CLIA [id number] [address] [place] [address] [place] Creatinine and Glomerular filtration rate.predicted panel (S/P/Bld) 85 mL/min/1.73m??? Normal >=60 [facility] Comment on above: Order Comment: Speci men Type: BLOOD SPECIMEN Ordering Facility: [facility] Address: [address] [place] [address] Result Comment: Macy mated Glomerular Filtration Rate [...] GFR. Performed By: #### 2 4323-8, #### [facility] CLIA [id number] [address] [place] [address] [place] Glucose [Mass/Vol] 145 mg/dL High 70-100 [facility] Comment on above: Order Comment: Romero vickers Type: BLOOD SPECIMEN Ordering Facility: [facility] Address: [address] [place], [place] [phone] Result Comment: The [place] Diabetes Association (ADA) provides guidance for cutoff [...] Standards of Medical Care in Diabetes 2016, [place] [employer]. Diabetes Care. 2016.39(Suppl 1). Results may be falsely elevated after the administration of Sulfapyridine. Results may be falsely depressed after the administration of Sulfasalazine. Performed By: #### 2 4323-8, #### [facility] CLIA [id number] [address] [place] [address] [place] Potassium [Moles/Vol] 4.0 mmol/L Normal 3.5-5.1 [facility] Comment on above: Order Comment: Romero vickers Type: BLOOD SPECIMEN Ordering Facility: [facility] Address: [address] [place] [address] Performed By: #### 2 4323-8, #### [facility] CLIA [id number] [address] [place] [address] [place] Protein [Mass/Vol] 6.5 g/dL Normal 6.0-8.5 [facility] Comment on above: Order Comment: Graciai men Type: BLOOD SPECIMEN Ordering Facility: [facility] Address: [address] [phone] Performed By: #### 2 4323-8, #### [facility] CLIA [id number] [address] [place], [place] [address] [place] Sodium [Moles/Vol] 139 mmol/L Normal 136-145 [facility] Comment on above: Order Comment: Graciai men Type: BLOOD SPECIMEN Ordering Facility: [facility] Address: [address] [address] Performed By: #### 2 4323-8, #### [facility] CLIA [id number] [address] [place], [place] [address] [place] Urea nitrogen [Mass/Vol] 17 mg/dL Normal 7-26 [facility] Comment on above: Order Comment: Graciai men Type: BLOOD SPECIMEN Ordering Facility: [facility] Address: [address] [phone] Performed By: #### 2 4323-8, #### [facility] CLIA [id number] [address] [place], [place] [address] [place] ECG COMPLETEon 04-16-2023 ECG COMPLETE Ventricular Rate : 7 5 BPM Atrial Rate : 75 BPM P-R Interval : 200 ms QRS Duration : 104 ms Q-T Interval : 378 ms QTC Calculation(Bazett) : 422 ms Calculated P Delton : 70 degrees Calculated R Delton : -18 degrees Calculated T Delton : 46 degrees Sinus rhythm with Premature atrial complexes Otherwise normal ECG No previous ECGs available Confirmed by JUNI BRADFORD MD ([id number]) on 04/29/2023 6:36:50 PM NAME : LAVINIA URIOSTEGUI PID : [id number] : 1975 Gender : Male Race : ORD : [id number] Procedure Date : Apr 16 2023 19:59:38 Edit Date : Apr 29 2023 18:36:52 Diagnosis: Sinus rhythm with Premature atrial complexes Otherwise normal ECG No previous ECGs available Confirmed by JUNI BRADFORD MD ([id number]) on 04/29/2023 6:36:50 PM Test Reason : STAT Location : 0 : ED 44 Overread By : JUNI BRADFORD MD Edited By : JUNI BRADFORD MD Referred By : , Acquired by : VANDANA [facility] ED NOTEon 04-16-2023 ED NOTE HNO ID: [id number] Author: Pola Gonzalez, Josep Service: ? Author Type: Potato Peeler and Inspector Of Weights And Measures Type: ED Notes Filed: 04/16/2023 7:03 PM Note Text: Bed: 44-ED Expected date: 04/16/23 Expected time: Means of arrival: Apolinar BEEBE Comments: sohail [facility] ED PROV NOTEon 04-16-2023 ED PROV NOTE HNO ID: [id number] Author: Pamela Martinez MD Service: ? Author Type: Physician Type: ED Provider Notes Filed: 04/17/2023 12:57 AM Note Text: ED Provider Note Patient Name: Lavinia Uriostegui : 1975 SERVICE DATE: 04/16/23 History Patient presents with: Syncope: Pt comes from [place]. Pt felt dizzy/lightheaded and was lowered to ground, possible LOC, +thinners, did not hit head. Pt was diaporetic/pale upon EMS arrival.Pt hx of blood clot LLE from November. Taking xeralto. History provided by: Patient and EMS personnel button sewer used: Harper Uriostegui is a 47 year [...] Types: Cigarettes Quit date: 2011 Years since quittin. Smokeless tobacco: Current Types: Snuff Tobacco comments: occasional Vaping Use Vaping Use: Never used Substance and Sexual Activity Alcohol use: Not Currently Drug use: Not Currently Sexual activity: Not on file ALLERGIES Allergen Reactions Bactrim [Sulfametho* Rash Records on file/review of medical records: Nursing/triage notes and assessments as well as vitals were reviewed and incorporated Physical Exam Vitals [04/16/231911] BP Pulse Temp Temp src Resp SpO2 [...] of clinical (more content not included)... Normal [facility] HIGH SENSITIVITY TROPONIN Io n 04-16-2023 Tropinin I.cardiac panel High sensitivity method 3.5 pg/mL Normal 0.0-54.0 [facility] Comment on above: Order Comment: Romero vickers Type: BLOOD SPECIMEN Ordering Facility: [facility] Address: [address] [place] [phone] Result Comment: This assay uses different antibodies than our current assay, and assays, even by the same buffer automatic may recognize different regions of the antibody and cannot be used interchangeably. Expect results of this assay to run higher than the previous assay. Performed By: #### H STROP #### [facility] CLIA [id number] [facility] [address] [id number] [place] Magnesium SerPl-mCncon 04-16 Magnesium [Mass/Vol] 2.0 mg/dL Normal 1.6-2.6 [facility] Comment on above: Order Comment: Romero vickers Type: BLOOD SPECIMEN Ordering Facility: [facility] Address: [address] [place], [place] [phone] Performed By: #### 2 4323-8, 67499-2 #### [facility] CLIA [id number] [address] [place] [address] [facility] Absolute lymphocyte countOrd ered By: Valdo Fuentes on 03-25-2023 Lymphocytes Auto (Unsp spec) [#/Vol] 1.57 10*3/uL 0.83-4.51 [facility] Basophil percentageOrdered B y: Valdo Fuentes on 03-25-2023 Basophils/100 WBC (Bld) 1.0 % 0-1 [facility] Chloride [Moles/Vol] 105 mmol/L 98-107 [facility] Cholesterol [Mass/Vol] 120 mg/dL <200 [facility] Comment on above: <200 mg/dL Desirable 200-240 mg/dL Borderline >240 mg/dL High Risk Eosinophils/100 WBC (Bld) 2.0 % 0-5 [facility] Glucose [Mass/Vol] 91 mg/dL 74-106 [facility] Neutrophils (Bld) [#/Vol] 3.0 10*3/uL 2.0-7.7 [facility] Neutrophils/100 WBC (Bld) 58.7 % 47-70 [facility] Potassium [Moles/Vol] 4.3 mmol/L 3.5-5.1 [facility] Sodium [Moles/Vol] 137 mmol/L 136-145 [facility] Testosterone [Mass/Vol] 1275.27 ng/dL [facility] Comment on above: CENTRAL 90% REFERENC E RANGES MALE AGE <50 197.44 - 669.58 ng/dL MALE AGE > or = 50 187.72 - 684.19 ng/dL FEMALE AGE <50 8.38 - 35.01 ng/dL FEMALE AGE > or = 50 <7.00 - 35.92 ng/dL Effective as of 02/24/21 Triglyceride [Mass/Vol] 71 mg/dL <199 [facility] Comment on above: The drugs N-Acetylcy steine and Metamizole may falsely depress this assay.Serum Triglycerides Reference Interval Normal <150 mg/dL Borderline high 150 - 199 mg/dL High 200 - 499 mg/dL Very High > or = 500 mg/dL WBC (Bld) [#/Vol] 5.1 10*3/uL 4.4-11.0 [facility] Blood erythrocytes count (nu mber/volume)Ordered By: Valdo Fuentes on 03-25-2023 RBC (Bld) [#/Vol] 5.18 10*6/uL 4.6-6.[address] [facility] Blood hemoglobin measurement (mass/volume)Ordered By: Valdo Fuentes on 03-25-2023 Hemoglobin (Bld) [Mass/Vol] 15.2 g/dL 13.0-16.5 [facility] Blood lymphocytes/100 leukoc ytesOrdered By: Valdo Fuentes on 03-25-2023 Lymphocytes/100 WBC (Bld) 31.0 % 19-41 [facility] Blood monocytes/100 leukocyt esOrdered By: Valdo Fuentes on 03-25-2023 Monocytes/100 WBC (Bld) 7.1 % 0-10 [facility] Blood platelet mean volumeOr dered By: Valdo Fuentes on 03-25-2023 Platelet mean volume (Bld) [Entitic vol] 11.2 fL 6.2-12.0 [facility] Determination of erythrocyte mean corpuscular volume (MCV)Ordered By: Valdo Fuentes on 03-25-2023 MCV (RBC) [Entitic vol] 89.8 fL 80-94 [facility] Hematocrit Auto (Bld) [Volum e fraction]Ordered By: Valdo Fuentes on 03-25-2023 Hematocrit (Bld) [Volume fraction] 46.5 % 40-54 [facility] Laboratory - Chemistry and C hemistry - challengeOrdered By: Valdo Fuentes on 03-25-2023 CO2 [Moles/Vol] 29.0 mmol/L 21.0-32.0 [facility] Urea nitrogen/Creatinine [Mass ratio] 17.1 mg/mg 10-20 [facility] Laboratory - Hematology and Cell countsOrdered By: Valdo Fuentes on 03-25-2023 Erythrocyte distribution width (RBC) [Entitic vol] 42.8 fL 35.1-43.9 [facility] Erythrocyte distribution width (RBC) [Ratio] 13.0 % 11.6-14.6 [facility] Immature granulocytes/100 WBC (Bld) 0.200 % 0.0-0.9 [facility] Comment on above: IG% - Immature Granu locytes (promyelocytes, myelocytes and metamyelocytes) > 1% indicates that a LEFT SHIFT is Present. MCH (RBC) [Entitic mass] 29.3 pg 27.0-32.0 [facility] Nucleated RBC/100 WBC (Bld) [Ratio] 0 % 0-5 [facility] MCHC Auto (RBC) [Mass/Vol]Or dered By: Valdo Fuentes on 03-25-2023 MCHC (RBC) [Mass/Vol] 32.7 g/dL 32-36 [facility] No Panel InformationOrdered By: Valdo Fuentes on 03-25-2023 Estimated GFR (MDRD) Amer 104 mL/min >60 [facility] Comment on above: GFR Calc Estimated GFR (MDRD) Non-Af Amer 86 mL/min >60 [facility] Comment on above: Non- GFR Calc Prostate Specific Antigen Screen 1.40 ng/mL 0.00-4.00 [facility] Comment on above: This test was perfor med using the TPSA assay method for theDNAtriX chemistry system. Values obtained with differentassay methods cannot be used interchangably.When changing PSA assays in the course of monitoring apatient, additional sequential testing should be carriedout to confirm baseline values. Platelets bldOrdered By: Edith Fuentes on 03-25-2023 Platelets (Bld) [#/Vol] 211 10*3/uL 150-450 [facility] Serum or plasma calcium stacey urement (mass/volume)Ordered By: Valdo Fuentes on 03-25-2023 Calcium [Mass/Vol] 8.8 mg/dL 8.5-10.1 [facility] Serum or plasma cholesterol in HDL measurement (mass/volume)Ordered By: Valdo Fuentes on 03-25-2023 Cholesterol in HDL [Mass/Vol] 41 mg/dL >40 [facility] Comment on above: The drugs N-Acetylcy steine and Metamizole may falsely depress this assay. Reference Range HDL <40 mg/dL Low HDL Cholesterol HDL >or= 60 mg/dL High HDL Cholesterol Serum or plasma cholesterol in VLDL measurement (mass/volume)Ordered By: Valdo Fuentes on 03-25-2023 Cholesterol in VLDL [Mass/Vol] 14 mg/dL 5-40 [facility] Serum or plasma creatinine m easurement (mass/volume)Ordered By: Valdo Fuentes on 03-25-2023 Creatinine [Mass/Vol] 0.99 mg/dL 0.70-1.30 [facility] Comment on above: The validity of the calculated GFR & GFRAA in patients over 70 years has not been determined. Clinical correlation is essential. Serum or plasma low density lipoprotein (LDL) cholesterol measurement (mass/volume)Ordered By: Valdo Fuentes on 03-25-2023 Cholesterol in LDL [Mass/Vol] 65 mg/dL 0-130 [facility] Serum or plasma urea nitroge n measurement (mass/volume)Ordered By: Valdo Fuentes on 03-25-2023 Urea nitrogen [Mass/Vol] 17 mg/dL 02-15 [facility] Thin prep Papanicolaou smear with manual screeningOrdered By: Valdo Fuentes on 03-25-2023 Thin prep Papanicolaou smear with manual screening 3 5-15 [facility] Basophil percentageon 2021 Chloride [Moles/Vol] 103 mmol/L 98-107 [facility] Work Phone: Glucose [Mass/Vol] 90 mg/dL 74-106 [facility] Work Phone: [phone] Potassium [Moles/Vol] 4.6 mmol/L 3.5-5.1 [facility] Work Phone: [phone] Sodium [Moles/Vol] 136 mmol/L 136-145 [facility] Work Phone: [phone] Testosterone [Mass/Vol] 484.01 ng/dL [facility] Work Phone: [phone] Comment on above: CENTRAL 90% REFERENC E RANGES MALE AGE <50 197.44 - 669.58 ng/dL MALE AGE > or = 50 187.72 - 684.19 ng/dL FEMALE AGE <50 8.38 - 35.01 ng/dL FEMALE AGE > or = 50 <7.00 - 35.92 ng/dL Effective as of 02/24/21 Laboratory - Chemistry and C hemistry - challengeon 03-18-2022 CO2 [Moles/Vol] 32.0 mmol/L 21.0-32.0 [facility] Work Phone: Urea nitrogen/Creatinine [Mass ratio] 11.9 mg/mg 10-20 [facility] Work Phone: No Panel Informationon 03-18 Estimated GFR (MDRD) Amer 93 mL/min >60 [facility] Work Phone: Comment on above: GFR Calc Estimated GFR (MDRD) Non-Af Amer 77 mL/min >60 [facility] Work Phone: Comment on above: Non- GFR Calc Prostate Specific Antigen Screen 1.62 ng/mL 0.00-4.00 [facility] Work Phone: Comment on above: This test was perfor med using the TPSA assay method for [employer] chemistry system. Values obtained with differentassay methods cannot be used interchangably.When changing PSA assays in the course of monitoring apatient, additional sequential testing should be carriedout to confirm baseline values. Serum or plasma calcium stacey urement (mass/volume)on 03-18-2022 Calcium [Mass/Vol] 10.0 mg/dL 8.5-10.1 [facility] Work Phone: Serum or plasma creatinine m easurement (mass/volume)on 03-18-2022 Creatinine [Mass/Vol] 1.09 mg/dL 0.70-1.30 [facility] Work Phone: Comment on above: The validity of the calculated GFR & GFRAA in patients over 70 years has not been determined. Clinical correlation is essential. Serum or plasma urea nitroge n measurement (mass/volume)on 03-18-2022 Urea nitrogen [Mass/Vol] 13 mg/dL 02-15 [facility] Work Phone: Thin prep Papanicolaou smear with manual screeningon 03-18-2022 Thin prep Papanicolaou smear with manual screening 1 5-15 [facility] Work Phone: PROGRESSon 11-24-2019 PROGRESS HNO ID: [id number] Author: Angela Mathias (Rt) Kiel Pickens Service: ? Author Type: Inspector Of Weights And Measures Type: Progress Notes Filed: 11/24/2019 10:53 AM [...] Sherri November 24, 2019 10:52 AM Normal [facility] XR KNEE 3V AP/LAT/MERCHANT R Ton 11-24-2019 [...] changes right knee without acute osseous findings. Woods Manager: PSCB Transcribe Date/Time: Nov 24 2019 4:12P Dictated by : ETHAN MORA MD This examination was interpreted and the report reviewed and electronically signed by: ETHAN MORA MD on Nov 24 2019 4:13PM EST [id number] Normal [facility] Vital Signs Date Time Vital Sign Value Performing Clinician Faci lity 02-07-2025 07:56-0400 Body height 190.[address] Valdo Fuentes MD Work Phone: [phone] [place] [address] 02-07-2025 07:56-0400 Body weight 93.[address] Valdo Fuentes MD Work Phone: [phone] [place] [address] 02-06-2025 08:12-0400 Body mass index (BMI) [Ratio] 25.9 kg/m2 Dr. Valdo Fuentes MD Work Phone: [phone] [place] [address] 12-20-2024 15:34-0400 Body temperature 98.6 [degF] Dr. Valdo Fuentes MD Work Phone: [phone] [place] [address] 12-20-2024 15:34-0400 Body weight 93.[address] Valdo Fuentes MD Work Phone: [phone] [place] [address] 12-20-2024 15:34-0400 Diastolic blood pressure 94 mm[Hg] Dr. Valdo Fuentes MD Work Phone: [phone] [place] [address] 12-20-2024 15:34-0400 Heart rate 88 /min Dr. Valdo Fuentes MD Work Phone: [phone] [place] [address] 12-20-2024 15:34-0400 Respiratory rate 18 /min Dr. Valdo Fuentes MD Work Phone: [phone] [place] [address] 12-20-2024 15:34-0400 SaO2% (BldA) [Mass fraction] 97 % Dr. Valdo Fuentes MD Work Phone: [phone] [place] [address] 12-20-2024 15:34-0400 Systolic blood pressure 152 mm[Hg] Dr. Valdo Fuentes MD Work Phone: [phone] [place] [address] 10-23-2024 13:53-0400 Body temperature 98.9 [degF] Dr. Valdo Fuentes MD Work Phone: [phone] [place] [address] 10-23-2024 13:53-0400 Body weight 92.[address] Valdo Fuentes MD Work Phone: [phone] [place] [address] 10-23-2024 13:53-0400 Diastolic blood pressure 88 mm[Hg] Dr. Valdo Fuentes MD Work Phone: [facility] 10-23-2024 13:53-0400 Heart rate 71 /min Dr. Valdo Fuentes MD Work Phone: [facility] 10-23-2024 13:53-0400 Respiratory rate 16 /min Dr. Valdo Fuentes MD Work Phone: [facility] 10-23-2024 13:53-0400 SaO2% (BldA) [Mass fraction] 96 % Dr. Valdo Fuentes MD Work Phone: [facility] 10-23-2024 13:53-0400 Systolic blood pressure 140 mm[Hg] Dr. Valdo Fuentes MD Work Phone: [facility] 12-06-2023 14:59-0400 Body temperature 97.7 [degF] Dr. Valdo Fuentes Work Phone: [facility] 12-06-2023 14:59-0400 Diastolic blood pressure 96 mm[Hg] Dr. Valdo Fuentes Work Phone: [facility] 12-06-2023 14:59-0400 Heart rate 56 /min Dr. Valdo Fuentes Work Phone: [facility] 12-06-2023 14:59-0400 Respiratory rate 16 /min Dr. Valdo Fuentes Work Phone: [facility] 12-06-2023 14:59-0400 SaO2% (BldA) [Mass fraction] 99 % Dr. Valdo Fuentes Work Phone: [facility] 12-06-2023 14:59-0400 Systolic blood pressure 130 mm[Hg] Dr. Valdo Fuentes Work Phone: [facility] 12-06-2023 09:48-0400 Body height 190.[address] Valdo Fuentes Work Phone: [facility] 12-06-2023 09:48-0400 Body mass index (BMI) [Ratio] 22.8 kg/m2 Dr. Valdo Fuentes Work Phone: [facility] 12-06-2023 09:48-0400 Body weight [address] Valdo Fuentes Work Phone: [facility] 10-05-2023 11:10-0500 Body temperature 98 [degF] Dr. Valdo Fuentes Work Phone: [phone] [place] [address] 10-05-2023 11:10-0500 Body weight 84.08 kg Dr. Valdo Fuentes Work Phone: [facility] 10-05-2023 11:10-0500 Diastolic blood pressure 96 mm[Hg] Dr. Valdo Fuentes Work Phone: 2(193)[phone] [place] [address] 10-05-2023 11:10-0500 Heart rate 65 /min Dr. Valdo Fuentes Work Phone: 2(397)630-852466 [place] [address] 10-05-2023 11:10-0500 Respiratory rate 16 /min Dr. Valdo Fuentes Work Phone: [facility] 10-05-2023 11:10-0500 SaO2% (BldA) [Mass fraction] 99 % Dr. Valdo Fuentes Work Phone: [facility] 10-05-2023 11:10-0500 Systolic blood pressure 138 mm[Hg] Dr. Valdo Fuentes Work Phone: [facility] 09-29-2023 09:03-0500 Body height 193.[address] Valdo Fuentes Work Phone: [facility] 09-29-2023 09:03-0500 Body weight 85.[address] Valdo Fuentes Work Phone: 2(344)[phone] [place] [address] 09-28-2023 08:46-0500 Body mass index (BMI) [Ratio] 22.8 kg/m2 Dr. Valdo Fuentes Work Phone: 5([phone])[phone] [place] [address] 09-05-2023 15:57-0500 Body height 191.[address] Valdo Fuentes Work Phone: 4(009)[phone] [place] [address] 09-05-2023 15:57-0500 Body mass index (BMI) [Ratio] 23.1 kg/m2 Dr. Valdo Fuentes Work Phone: [facility] 09-05-2023 15:57-0500 Body temperature 98.6 [degF] Dr. Valdo Fuentes Work Phone: [facility] 09-05-2023 15:57-0500 Body weight 85.[address] Valdo Fuentes Work Phone: [facility] 09-05-2023 15:57-0500 Diastolic blood pressure 94 mm[Hg] Dr. Valdo Fuentes Work Phone: [facility] 09-05-2023 15:57-0500 Heart rate 62 /min Dr. Valdo Fuentes Work Phone: [facility] 09-05-2023 15:57-0500 Respiratory rate 16 /min Dr. Valdo Fuentes Work Phone: [facility] 09-05-2023 15:57-0500 SaO2% (BldA) [Mass fraction] 99 % Dr. Valdo Fuentes Work Phone: [facility] 09-05-2023 15:57-0500 Systolic blood pressure 148 mm[Hg] Dr. Valdo Fuentes Work Phone: [facility] Encounters Encounter Date Encounter Type Care Provider Facility Start: 02-14-2025 ambulatory Junaid Whitney Facility:[facility] Start: 02-07-2025 ambulatory Valdo Fuentes Facility:[facility] Start: 02-07-2025 Non-patient / Non-visit Dr. Junaid julian MD -[facility] Start: 02-07-2025 End: 02-07-2025 Admission to same day surgery center Dr. 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 Valdo Fuentes MD Work Phone: -[employer] Operator/Special Procedures Start: 01-18-2025 End: 01-18-[address] Valdo Fuentes MD Work Phone: [facility] Work Phone: Start: 01-18-2025 End: 01-18-[address] Vandana Crowe MD -[facility] Work Phone: Start: 01-18-2025 End: 01-18-2025 ambulatory Vandana Crowe Facility:[facility] Start: 12-20-2024 End: 12-20-[address] Junaid Whitney MD -[facility] Work Phone: Start: 12-20-2024 End: 12-20-2024 ambulatory Valdo Fuentes Facility:[facility] Start: 11-28-2024 ambulatory Junaid Whitney Facility:[facility] Start: 11-28-2024 Non-patient / Non-visit Dr. Junaid julian MD -[facility] Start: 11-28-2024 End: 11-28-2024 Patient encounter procedure Quynh Dupree PA -Cardiovascular Services Work Phone: Start: 11-28-2024 End: 11-28-2024 ambulatory Quynh Dupree Facility:[facility] Start: 10-23-2024 End: 10-23-2024 Patient encounter procedure Quynh RICH -[facility] Work Phone: Start: 10-23-2024 End: 10-23-2024 ambulatory Valdo Fuentes Facility:[facility] Start: 10-01-2024 Non-patient / Non-visit Dr. Junaid julian MD -[facility] Start: 10-01-2024 End: 10-01-[address] Valdo Fuentes MD Work Phone: [facility] Work Phone: Start: 10-01-2024 End: 10-01-2024 Patient encounter procedure Qunyh Dupree PA -Cardiovascular Services Work Phone: Start: 10-01-2024 End: 10-01-2024 ambulatory Quynh Dupree Facility:[facility] Start: 09-21-2024 Registered Referred [facility] RISK [facility] -[facility] & Wellness Work Phone: Start: 09-21-2024 ambulatory Health Risk Assessment Facility:[facility] Start: 09-21-2024 ambulatory Health Risk Assessment Facility:[facility] Start: 05-16-2024 End: 05-16-2024 ambulatory Valdo Fuentes Facility:[facility] Start: 04-24-2024 Encounter for genera l adult medical examination without abnormal findings Valdo Fuentes [facility] Start: 04-04-2024 End: 04-04-2024 ambulatory Valdo Fuentes Facility:[facility] Start: 03-23-2024 ambulatory Valdo Fuentes Facility:[facility] Start: 03-23-2024 End: 03-23-2024 ambulatory Valdo Fuentes Facility:[facility] Start: 12-06-2023 Non-patient / Non-visit Dr. Jose Fuentes Work Phone: [facility] Start: 12-06-2023 End: 12-06-2023 Admission to same day surgery center Dr. Valdo Fuentes Work Phone: [facility]-Surgical Day Care Start: 12-06-2023 End: 12-06-[address] Valdo Fuentes Work Phone: [facility] Work Phone: Start: 11-08-2023 Non-patient / Non-visit Dr. Jose Fuentes Work Phone: [facility] Start: 11-08-2023 End: 11-08-[address] Valdo Fuentes Work Phone: [facility] Work Phone: Start: 11-08-2023 End: 11-08-[address] Valdo Fuentes Work Phone: [facility]-Cardiovascula r Services Work Phone: Start: 10-24-2023 Non-patient / Non-visit Dr. Jose Fuentes Work Phone: [facility] Start: 10-24-2023 End: 10-24-[address] Valdo Fuentes Work Phone: [facility] Work Phone: Start: 10-24-2023 End: 10-24-[address] Valdo Fuentes Work Phone: [facility]-Cardiovascula r Services Work Phone: Start: 10-05-2023 End: 10-05-[address] Valdo Fuentes Work Phone: [facility] Work Phone: Start: 09-29-2023 Non-patient / Non-visit Dr. Jose Fuentes Work Phone: [facility] Start: 09-29-2023 End: 09-29-2023 Admission to same day surgery center Dr. 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 Valdo Fuentes Work Phone: [facility] Work Phone: Start: 09-12-2023 Non-patient / Non-visit Dr. Jose Fuentes Work Phone: [facility] Start: 09-12-2023 End: 09-12-[address] Valdo Fuentes Work Phone: [facility] Work Phone: Start: 09-12-2023 End: 09-12-[address] Valdo Fuentes Work Phone: [facility] Work Phone: Start: 09-06-[address] Valdo camargo Work Phone: [facility]-Health & Wellness Work Phone: Start: 09-05-2023 End: 09-05-[address] Valdo Fuentes Work Phone: [facility] Work Phone: Start: 05-25-2023 End: 05-25-2023 ambulatory [facility] Work Phone: Start: 05-25-2023 End: 05-25-2023 Patient encounter procedure [facility]-Cardiovascula r Services Work Phone: Start: 04-28-2023 End: 04-28-2023 Patient encounter procedure [facility]-MRI - [facility] Work Phone: Start: 04-22-2023 End: 04-22-2023 Patient encounter procedure [facility]-Laboratory, [facility] Start: 04-16-2023 End: 04-17-2023 Emergency department patient visit VALDO FUENTES Facility:[id number] Start: 03-25-2023 End: 03-25-2023 Patient encounter procedure [facility]-Laboratory, Specimen Work Phone: Start: 03-18-2022 End: 03-18-2022 ambulatory [facility] Work Phone: Start: 03-18-2022 End: 03-18-2022 Patient encounter procedure [facility]-Laboratory Procedures Date Procedure Procedure Detail Performing Clinician [...] the productionof interferon gamma. Chemiluminescence immunoassaymethodologyPerformed at: [facility] [id number] Director: Reji Rahman PhD, Phone: [phone] Start: 04-28-2023 Magnetic resonance venography of vein of pelvis with contrast Plan of Treatment Date Care Activity Detail Author Start: 02-07-2025 Patient [address] [facility] Start: 12-06-2023 Patient discharge [facility] Start: 12-06-2023 Removal of thrombus Thrombectomy (Le ft) [facility] Start: 09-29-2023 Patient discharge [facility] Patient referral [facility] Work Phone: Payers Date Payer Category Payer Self-pay [id number] 2023 Unknown [id number] 2023 Unknown [id number] Private Health Insurance [facility] [id number] Unknown [id number] 2.16.8 [id number] Unknown [id number] 2.16.8 [id number] Unknown [id number] 2.16.8 [id number] Unknown [id number] 2.16.8 [id number] Unknown [id number] 2.16.8 40.1.508635.3.579.2.462 Unknown [id number] 2.16.8 40.1.755650.3.579.2.462 Unknown [id number] 2.16.8 40.1.357593.3.579.2.462 Unknown [id number] 2.16.8 40.1.287185.3.579.2.462 Unknown [id number] 2.16.8 40.1.459211.3.579.2.462 Unknown [id number] 2.16.8 40.1.662152.3.579.2.462 Unknown [id number] 2.16.8 40.1.767960.3.579.2.462 Unknown [id number] 2.16.8 40.1.335683.3.579.2.462 Unknown [id number] 2.16.8 40.1.376813.3.579.2.462 Unknown [id number] 2.16.8 40.1.562396.3.579.2.462 Unknown [id number] 2.16.8 40.1.995198.3.579.2.462 Unknown [id number] 2.16.8 [id number] Social History Date Type Detail [facility] Work Phone: Start: 1975 Sex Assigned At Male [facility] Start: 09-05-2023 End: 12-05-2023 Tobacco smoking status NHIS Unknown if ever smoked [facility] Start: 12-05-2023 Tobacco smoking stat us NEIS Smokes tobacco daily (finding) [facility] Start: 10-10-2024 Sex Male (finding) [facility] Start: 10-23-2024 End: 02-07-2025 Tobacco smoking status NHIS Ex-smoker (finding) [facility] Medical Equipment Procedure Code Equipment Code Equipment Origin al Text Equipment Identifier Dates Iliofemoral vein stent [id number] [id number] [facility] Start: 09-29-2023 Goals Date Patient Goal Desired Activity /State Mental Status Date Assessment Result Facility 12-06-2023 Cognitive function Voice/Name;Touch/Antonia valadez [facility] Work Phone: Clinical Notes 04-17-2023 to 02-07-2025 Note Date & Type Note Facility 02-07-2025 History and physical note Note Date/Time February 07, 2025 9:40am [facility] Medical Records Department [address] [place] [address] History & Physical Exam 02/07/2536 MR#: [id number] Acct: [id number] Name: LAVINIA URIOSTEGUI Jr. Rep #: [id number] : 1975 49 From: Junaid Whitney MD PCP: Dr. Valdo Fuentes MD Status:REG S DC Location: [facility] HPI - General HPI Narrative LAVINIA URIOSTEGUI, is a 49 M who presents with painful left leg varicose veins andprior SVT. 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 [facility] Medical History Loss of hearing Wears glasses Anxiety Marijuana use Arthritis High cholesterol DVT (deep venous thrombosis) Back pain Syncope Asthma Chewing tobacco dependence History of edema Hypertension History of echocardiogram MVP (mitral valve prolapse) Home Medications ?Medication ?Instructions ?Recorded ?Last Taken ?Type rosuvastatin 5 mg tablet 5 mg PO DAILY 09/05/23 Unkno wn History testosterone cypionate 100 mg/mL 100 mg IM .Q3W Unknown History intramuscular oil clopidogrel 75 mg tablet (Plavix) 75 mg PO .daily #90 tabs 10/05/24 Unknown Rx fluoxetine 20 mg capsule 40 mg PO QDAY 10/23/24 Unkno wn History dextroamphetamine-amphetamine 20 20 mg PO QDAY 5 Unknown History mg tablet (Adderall) Allergy/AdvReac Type Severity Reaction Status Date / Time sulfamethoxazole (From Allergy Intermediate Rash Verified 12/20/24 15:33 Bactrim) trimethoprim (From Bactrim) Allergy Intermediate Rash Verified 12/20/24 15:33 Family History Other Arthritis Cancer High cholesterol Hypertension Surgical History Hx of tonsillectomy (~1982) Social History Smoking Status: Former smoker how long ago did patient quit smokin years ago, chewing tobacco 1 month ago alcohol intake: never ROS Constitutional Constitutional: Denies [...] lymphadenopathy Vital Signs Vital Signs Vital Signs: Weight Weight: 207 lb Body Mass Index (BMI) 25.9 Physical Exam Const alert, oriented x3, no apparent distress and healthy appearing General Appearance: cooperative; Negative for combative or lethargic Orientation / Consciousness: awake Exam Limitations: no limitations HEENT Head and Scalp: normocephalic and atraumatic Eyes EOMs intact bilaterally General Eye: normal appearance of both eyes Neck full ROM General: trachea midline Resp normal respiratory effort, no use of [...] of left lower extremity with pain: 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 Junaid Whitney MD; Dr. Valdo Fuentes MD~ Signed [facility] Work Phone: 1(406) 131-943207-10-2025 History and physical note [facility] Medical Records Department [address] [place] [address] History & Physical Exam 02/07/25 09 MR#: [id number] Acct: [id number] Name: LAVINIA URIOSTEGUI Jr. Rep #: [id number] : 1975 49 From: Junaid Whitney MD PCP: Dr. Valdo Fuentes MD Status:REG S DC Location: [facility] HPI - General HPI Narrative LAVINIA URIOSTEGUI, is a 49 M who presents with painful left leg varicose veins andprior SVT. 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 [facility] Medical History Loss of hearing Wears glasses Anxiety Marijuana use Arthritis High cholesterol DVT (deep venous thrombosis) Back pain Syncope Asthma Chewing tobacco dependence History of edema Hypertension History of echocardiogram MVP (mitral valve prolapse) Home Medications ?Medication ?Instructions ?Recorded ?Last Taken ?Type rosuvastatin 5 mg tablet 5 mg PO DAILY 09/05/23 Unkno wn History testosterone cypionate 100 mg/mL 100 mg IM .Q3W Unknown History intramuscular oil clopidogrel 75 mg tablet (Plavix) 75 mg PO .daily #90 tabs 10/05/24 Unknown Rx fluoxetine 20 mg capsule 40 mg PO QDAY 10/23/24 Unkno wn History dextroamphetamine-amphetamine 20 20 mg PO QDAY 5 Unknown History mg tablet (Adderall) Allergy/AdvReac Type Severity Reaction Status Date / Time sulfamethoxazole (From Allergy Intermediate Rash Verified 12/20/24 15:33 Bactrim) trimethoprim (From Bactrim) Allergy Intermediate Rash Verified 12/20/24 15:33 Family History Other Arthritis Cancer High cholesterol Hypertension Surgical History Hx of tonsillectomy (~1982) Social History Smoking Status: Former smoker how long ago did patient quit smokin years ago, chewing tobacco 1 month ago alcohol intake: never ROS Constitutional Constitutional: Denies chills, fever(s), frequent falls, lethargy or weakness Eyes Eyes: Denies blind spots, change in vision or loss of vision ENT HEENT: Denies bleeding gums, hoarseness or sore throat Cardiovascular Cardiovascular: Denies abdominal pain, bluish discoloration of hand/feet, chest pain with activity,claudication, cold extremities, cyanosis, dyspnea on exertion, erythema [...] lymphadenopathy Vital Signs Vital Signs Vital Signs: Weight Weight: 207 lb Body Mass Index (BMI) 25.9 Physical Exam Const alert, oriented x3, no apparent distress and healthy appearing General Appearance: cooperative; Negative for combative or lethargic Orientation / Consciousness: awake Exam Limitations: no limitations HEENT Head and Scalp: normocephalic and atraumatic Eyes EOMs intact bilaterally General Eye: normal appearance of both eyes Neck full ROM General: trachea midline Resp normal respiratory effort, no use of [...] of left lower extremity with pain: 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 Junaid Whitney MD; Dr. Valdo Fuentes MD~ Signed [facility]07-10-2025 [facility] Medical Records Department [address] [place] [address] History Physical Exam 02/07/25935 MR#: [id number] Acct: [id number] Name: LAVINIA URIOSTEGUI Jr. Rep #: [id number] : 1975 49 From: Junaid Whitney MD PCP: Dr. Valdo Fuentes MD Status:[facility] Location: [facility] HPI - General HPI Narrative LAVINIA URIOSTEGUI, is a 49 M who presents with painful left leg varicose veins and prior SVT. 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 [facility] Medical History Loss of hearing Wears glasses Anxiety Marijuana use Arthritis High cholesterol DVT (deep venous thrombosis) Back pain Syncope Asthma Chewing tobacco dependence History of edema Hypertension History of echocardiogram MVP (mitral valve prolapse) Home Medications ???Medication ???Instructions ???Recorded ???Last Taken ???Type rosuvastatin 5 mg tablet 5 mg PO DAILY 09/05/23 Unknown His tory testosterone cypionate 100 mg/mL 100 mg IM .Q3W 09/05/23 Unknown Hi story intramuscular oil clopidogrel 75 mg tablet (Plavix) 75 mg PO .daily #90 tabs 10/05/24 Unknown Rx fluoxetine 20 mg capsule 40 mg PO QDAY 10/23/24 Unknown His tory dextroamphetamine-amphetamine 20 20 mg PO QDAY 12/20/24 Unknown His tory mg tablet (Adderall) Allergy/AdvReac Type Severity Reaction Status Date / Time sulfamethoxazole (From Allergy Intermediate Rash Verified 12/20/24 15:33 Bactrim) trimethoprim (From Bactrim) Allergy Intermediate Rash Verified 12/20/24 15:33 Family History Other Arthritis Cancer High cholesterol Hypertension Surgical History Hx of tonsillectomy ( 1982) Social History Smoking Status: Former smoker how long ago did patient quit smokin years ago, chewing tobacco 1 month ago alcohol intake: never ROS Constitutional Constitutional: Denies [...] abnormal speech, focal weakness, headache(s), loss of vision, numbness, paresthesias or sensory deficit Hematologic/Lymphatic Hematologic/Lymphatic: Denies easy bleeding, easy bruising or lymphadenopathy Vital Signs Vital Signs Vital Signs: Weight Weight: 207 lb Body Mass Index (BMI) 25.9 Physical Exam Const alert, oriented x3, no apparent distress and healthy appearing General Appearance: cooperative; Negative for combative or lethargic Orientation / Consciousness: awake Exam Limitations: no limitations HEENT Head and Scalp: normocephalic and atraumatic Eyes EOMs intact bilaterally General Eye: normal appearance of both eyes Neck full ROM General: trachea midline Resp normal respiratory effort, no use of accessory muscles and clear to auscultation bilaterally Effort and Inspection: Negative for labored, stridor [...] speech normal and activity/motor behavior normal Assessment Plan Assessment/Plan (1) Varicose veins of left lower extremity with pain: 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 Junaid Whitney MD; [facility]* Diagnosis Onset Date Resolution Status Admit Date Iliac vein stenosis, left acute October 23, 2024 1:29pm Varicose veins of left lower extremity with pain chronic October 23, 2024 1:29pm Varicose veins of left lower extremity with pain chronic December 20 3:20pm [facility] Work Phone: 1(763) 676-569603-25-2025 Evaluation note* Diagnosis Onset Date Resolution Status Admit Date Iliac vein stenosis, left acute October 23, 2024 1:29pm Varicose veins of left lower extremity with pain chronic October 23, 2024 1:29pm Varicose veins of left lower extremity with pain chronic December 20 3:20pm Varicose veins of left lower extremity with pain chronic February 07 7:34am [facility] Work Phone: 1(301) 974-690005-07-2024 History and physical note Author Junaid Whitney [facility] December 06, 2023 12:03pm Note Date/Time December 06, 2023 12:03p [facility] Medical Records Department [address] [place] [address] History & Physical Exam 12/06/23 1200 MR#: [id number] Acct: [id number] Name: LAVINIA URIOSTEGUI Jr. Rep #: [id number] : 1975 48 From: Junaid Whitney MD PCP: Dr. Valdo Fuentes MD Status:REG S PA Location: [place] [address] HPI - General HPI Narrative LAVINIA URIOSTEGUI, is a 48 M who presents with painful left leg varicose veins, refractory to compression. [facility] Medical History (Updated 12/06/23 @ 12:02 by [...] Whitney MD; Dr. Valdo Fuentes MD~ Signed [facility] Work Phone: 1(504) 739-935810-14-2023 NoteHNO ID: [id number] Author: Note, Interface Service: ? Author Type: ? Type: Progress Notes Filed: 05/14/2023 5:50 AM Note Text: Epic Scheduled Downtime: 05/14/2023 1:00:00 AM to 05/14/2023 1:28:00 [facility]09-17-2023 NoteHNO ID: [id number] Author: Note, Interface Service: ? Author Type: ? Type: Progress Notes Filed: 04/17/2023 3:10 AM Note Text: Epic Scheduled Downtime: 04/17/2023 1:02:01 AM to 04/17/2023 2:21:01 [facility]id [facility] December 06, 2023 2:00pm Note Date/Time December 06, 2023 1:49pm [facility] Medical Records Department [address] [place] [address] Instructions for Home/Discharge Instructions 12/06/23 1346 MR#: [id number] Acct: [id number] Name: LAVINIA URIOSTEGUI Rep #: [id number] : 1975 48 From: Junaid Whitney MD [...] be discussed in further detail at your follow- up appointment, if applicable. Discharge Plan Admission Attending [...] CC: Dr. Valdo Fuentes MD ~ Signed [facility] Work Phone: Evaluation noteNo assessment information available [facility] Work Phone: Evaluation note* Diagnosis Onset Date Resolution Status Varicose vein of leg chronic [facility] Work Phone: Evaluation note* Diagnosis Onset Date Resolution Status Varicose vein of leg chronic DVT (deep venous thrombosis) acute Varicose vein of leg chronic [facility] Work Phone: Evaluation note* Diagnosis Onset Date Resolution Status Varicose vein of leg chronic DVT (deep venous thrombosis) acute Varicose vein of leg chronic Varicose veins of left lower extremity with pain acute [facility] Work Phone: Reason for referral (narrative)No reason for referral information [facility] Work Phone: Summary Purpose Family History No Family History Records Found Relationship Condition Age at Onset Recorded Date/T yesenia Not Specified High blood cholesterol Unknown Arthritis Unknown Malignant neoplasm Unknown Hypertension Unknown Advance Directives No Advanced Directives Records Found Advance Directive Response Recorded Date/ Time Advance Directives on File No 2023 9:03am Advance Directives No September 9:03am Living Will No September, 9:03am Power of Hog Stomach Preparer No September 29, 2023 9:03am Advance Directive Response Recorded Date/ Time Advance Directives on File No 2023 10:03am Advance Directives No September 10:03am Living Will No October 03, 2023 11:03am Power of Hog Stomach Preparer No October 02 11:03am Advance Directive Response Recorded Date/ Time Advance Directives on File No 2023 10:03am Advance Directives No December 05, 2023 9:27am Living Will No December 05, 2023 9: 27am Power of Hog Stomach Preparer No December 05, 2023 9:27am Advance Directive Response Recorded Date/ Time Living Will No December 05, 2023 9: 27am Power of Hog Stomach Preparer No December 05, 2023 9:27am Advance Directives No December 05, 2023 9:27am Advance Directive Response Recorded Date/ Time Living Will No December 05, 2023 9: 27am Do you have a Healthcare Power of Hog Stomach Preparer? No December 05, 2023 9:27am Advance Directives No December 05, 2023 9:27am Advance Directive Response Recorded Date/ Time Living Will No February 07, 2025 7:56am Do you have a Healthcare Power of Hog Stomach Preparer? 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 S/P LT ILIAC VEIN STENT Reason for Visit Varicose vein of leg DVT (deep venous thrombosis) Varicose vein of leg Chief Complaint CONSULT-SIGNIFICANT VARICOSE VEINS VARICOSE VEIN LEFT LEG LE VARICOSE VEINS LE 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 VEINS 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 F/U LT LEG PAIN S/P LT ILIAC [...] w ith pain December 20, 2024 3:20pm Chief Complaint Admit Date 1 Y FU October 23, 2024 1:2 9pm LT LEG PAIN November 28, 2024 8:0 4am Discuss Varicose Vein Treatment options December 20, 2024 3:20pm Varicose veins of bilateral lower extrem ities with February 07, 2025 7:34am Varicose veins of bilateral lower extrem ities with February 07, 2025 9:36am Reason for Visit Admit Date Iliac vein stenosis, left October 23 1:29pm Varicose veins of left lower extremity w ith pain October 23, 2024 1:29pm Varicose veins of left lower extremity w ith pain December 20, 2024 3:20pm Varicose veins of left lower extremity w ith pain February 07, 2025 7:34am Additional Source Comments (unrecognized sect ion and content) No Status Records FoundNo Status Records FoundNo Status Records Found INFORMATION SOURCE (unrecogn ized section and content) DATE CREATED AUTHOR 11/24/2019 [facility] DATE CREATED AUTHOR 'S ORGANIZ ATION 05/16/2023 [facility] DATE CREATED AUTHOR AUTHOR'S ORGANIZ ATION 02/09/2025 [facility] Goals (unrecognized section and content) Goals may [...] Provider Active S tart: October 01, 2024 Team Status: Active Member Role/Relationship Status Dates Dr. Valdo Fuentes MD Primary Care Provider Active Team Status: Inactive Member Role/Relationship Status Dates Dr. Valdo Fuentes MD Primary Care Provider Active Start: October 23, 2024 End: October 23, 2024 Dr. Valdo Fuentes MD Referring Provider Active Start: October 23, 2024 End: October 23, 2024 JOSE Higgins Attending Provider Active Star t: October 23, 2024 End: October 23, 2024 Team Status: Inactive Member Role/Relationship Status Dates Dr. Valdo Fuentes MD Primary Care Provider Active Start: November 28, 2024 End: November 28, 2024 JOSE Higgins Attending Provider Active Star t: November 28, 2024 End: November 28, 2024 JOSE Higgins Referring Provider Active Star t: November 28, 2024 End: November 28, 2024 Team Status: Active Member Role/Relationship Status Dates Dr. Valdo Fuentes MD Primary Care Provider Active Start: November 28, 2024 Dr. Junaid Whitney MD Attending Provider Active S tart: November 28, 2024 JOSE Higgins Referring Provider Active Star t: November 28, 2024 Team Status: Inactive Member Role/Relationship Status Dates Dr. Valdo Fuentes MD Primary Care Provider Active Start: December 20, 2024 End: December 20, 2024 Dr. Valdo Fuentes MD Referring Provider Active Start: December 20, 2024 End: December 20, 2024 Dr. Junaid Whitney MD Attending Provider Active S tart: December 20, 2024 End: December 20, 2024 Team Status: Inactive Member Role/Relationship Status Dates Dr. Valdo Fuentes MD Primary Care Provider Active Start: January 18, 2025 End: January 18, 2025 Dr. Vandana Crowe MD Attending Provider Active S tart: January 18, 2025 End: January 18, 2025 Dr. Vandana Crowe MD Referring Provider Active S tart: January 18, 2025 End: January 18, 2025 Team Status: Inactive Member Role/Relationship Status Dates Dr. Valdo Fuentes MD Primary Care Provider Active Start: February 07, 2025 End: February 07, 2025 Dr. Junaid Whitney MD Attending Provider Active S tart: February 07, 2025 End: February 07, 2025 Dr. Junaid Whitney MD Referring Provider Active S tart: February 07, 2025 End: February 07, 2025 Team Status: Active Member Role/Relationship Status Dates Dr. Valdo Fuentes MD Primary Care Provider Active Start: February 07, 2025 Dr. Junaid Whitney MD Attending Provider Active S tart: February 07, 2025 Dr. Junaid Whitney MD Referring Provider Active S tart: February 07, 2025 Dr. Junaid Whitney MD Other Provider Active Start : February 07, 2025 FOR RECORDS PERTAINING TO PATIENTS WHO ARE [...] BE BASED ON THE PRIMARY CLINICAL RECORDS. [facility]. provides no warranty or guarantee of the accuracy or completeness of information in this document.
--- NOTE | 2025-02-14 19:26 | OP.PCM_ITS ---
Operative Report (Standard) Operative Information Date of Procedure: 02/14/25 Pre-Operative Diagnosis: Varicose veins with pain of the left lower extremity Post-Operative Diagnosis: Same Surgery/Procedure Performed: Foam sclerotherapy of left lower extremity accessory saphenous vein and associated varicosities quality liaison: No Type of Anesthesia: Local Procedure Start Time: 10:25 Procedure Stop Time: 10:55 Select all DRAINS/GRAFTS/IMPLANTS that apply: None Estimated Blood Loss: 2 Specimen collected: No Description of surgery: HPI: Patient is a 49-year-old male with extensive venous insufficiency with multiple prior procedures the left lower extremity with persistent painful varicose veins despite prior interventions and compression therapy. He has painful varicosities in the anterior/medial calf that appear to communicate with distal thigh varicosities that ultimately arise from an incompetent accessory saphenous vein that originates from the common femoral vein directly. He presents now for foam sclerotherapy. Description of procedure: Upon obtaining informed consent and verification of correct patient procedure site the patient taken the Biomedical Service Engineer where he was positioned prepped and draped in usual sterile fashion. Time out was performed and veins of the left lower extremity were assessed with ultrasound. This confirmed multiple varicosities on the anterior medial calf extending adjacent to the medial aspect of the knee and secondary group of varicosities in the distal thigh that directly communicated with the accessory saphenous vein. The majority of his symptoms are within the calf varicosities and given direction of flow is felt that access in the calf varicosities to infuse foam would treat that the most symptomatic vessels first as well as ablate the thigh varicosities in the accessory saphenous. Skin overlying the varicosities in the anterior aspect of the calf were anesthetized 1% lidocaine the vessel accessed with a micropuncture needle wire. This is then exchanged for a micropuncture sheath th rough which Varithena foam sclerotic agent was injected under ultrasound visualization and tracked along the varicosities of the calf and ultimately into the distal thigh. During infusion a calf ticket worker was compressed to avoid foam entry into the deep system. After the initial volume of foam was infused it was felt that further injection would provide further penetrance into the 5 vessels so an additional amount was infused via the same access site. Once the foam had completed its transit the deep system was assessed and no evidence of thrombus or sclerosing agent was visualized. The micropuncture sheath was then withdrawn and Manta pressure held and hemostasis was observed. Dry sterile dressing and Kevin wrap were then applied and the patient was taken to the recovery area with plan discharge to home Surgical Findings: See above Complications Complications: No
== END 2025-02-14 11:30 | disposition home or self-care (01) ==
PROVIDERS: PCP Family Medicine; Referring Provider Surgery Trauma Surgery; Visit Provider Surgery Trauma Surgery
DX: I83.812 Varicose veins of left lower extremity with pain (principal); I87.2 Venous insufficiency (chronic) (peripheral); E78.00 Pure hypercholesterolemia, unspecified; J45.909 Unspecified asthma, uncomplicated; I10 Essential (primary) hypertension; Z79.02 Long term (current) use of antithrombotics/antiplatelets; Z79.899 Other long term (current) drug therapy; Z87.891 Personal history of nicotine dependence
CPT/HCPCS: 36465; C1894

== ENCOUNTER → 2025-02-18 | Outpatient (CLI) | payer BC, SELFPAY ==
--- NOTE | 2025-02-18 08:04 | VDLE_ITS ---
Reason For Study Reason For Study: S/P left leg ablation RIGHT LEFT CFV is compressible, spontaneous, phasic, competent CFV is compressible, spontaneous, phasic, competent, and demonstrates normal augmentation. and demonstrates normal augmentation. Procedure FV is compressible, spontaneous, phasic, competent This is a venous duplex using B-mode, color flow and and demonstrates normal augmentation. spectral Doppler. POP V is compressible, spontaneous, phasic, competent Exam performed in department. and demonstrates normal augmentation. T/P Trunk is compressible. PTV is compressible. LT PerV is compressible. Hx SFJ ligation. GSV is partially compressible throughout. GSV and ASV in calf in occluded s/p Verithena ablation. Spinning Frame Tender distal calf is partially compressible s/p ablation. VL/Venous Duplex US, Unilateral Interpretation Summary Left accessory saphenous vein and great saphenous vein in calf occluded consist ent with recent ablation. Left calf print color operator occluded consistent with recent ablation. Ordering Physician: Quynh Dupree Referring Physician: Valdo Rodriguez Performed By: Lorena Gastelum RVT
[2025-02-18 10:43] LABS: Hematocrit 43.0 % (40-54); Hemoglobin 14.3 g/dL (13.0-16.5); Immature Granulocytes Count 0.000 X10^3/uL (0.0-0.0); Mean Corp Hgb Conc 33.3 g/dL (32-36); Mean Corpuscular Volume 87.8 fL (80-94); Mean Platelet Vol. 10.9 fl (6.2-12.0); NRBC Flagged by Analyzer 0 % (0-5); Platelet Count 198 K/mm3 (150-450); RBC Distribution Width CV 12.9 % (11.6-14.6); RBC Distribution Width SD 41.1 fl (35.1-43.9); Red Blood Count 4.90 M/mm3 (4.6-6.2); White Blood Count 4.6 K/mm3 (4.4-11.0)
[2025-02-21 12:09] LABS: Testosterone, % Free 4.44 % (1.50-4.20); Testosterone, Free 8.57 ng/dL (5.00-21.00)
== END | disposition home or self-care (01) ==
LOC: CVS 08:02
PROVIDERS: PCP Family Medicine; Referring Provider Surgery Trauma Surgery; Visit Provider Surgery Trauma Surgery
DX: I83.812 Varicose veins of left lower extremity with pain (principal); E29.1 Testicular hypofunction; I87.1 Compression of vein
CPT/HCPCS: 36415; 84402; 84403; 85025; 93971

== ENCOUNTER → 2025-04-12 | Outpatient (CLI) | payer BC, SELFPAY ==
--- NOTE | 2025-04-12 09:50 | CT_ITS ---
PROCEDURE: EXTREMITY LOWER WITHOUT CONTRA 04/12/2025 REASON FOR EXAM: RIGHT KNEE [facility] PROTOCOL,PRE OP TECHNIQUE: Procedure Code: CTELWO Modality: CT Procedure: [facility] noncontrasted CT of the right knee, with sagittal and coronal reconstructed images. One or more dose reduction techniques were used (e.g., Automated exposure control, adjustment of the mA and/or kV according to patient size, use of iterative reconstruction technique). RADIATION DOSE SUMMARY: DLP: 1246.90 mGycm COMPARISON: None provided. FINDINGS: The right hip joint demonstrates minimal degenerative changes. No evidence of femoral head osteonecrosis. The right knee demonstrates the presence of moderate joint effusion. Loose intra-articular bodies are seen in the anterior joint space. Overall moderate right knee degenerative changes are seen, with moderately severe patellofemoral and medial joint space narrowing noted. No Stokes's or popliteal cyst is seen. The right ankle demonstrates no significant abnormality. CT/Extremity Lower without Contra IMPRESSION: Right knee degenerative changes and additional findings as described. Reading Location: [place] [id number]
== END | disposition home or self-care (01) ==
PROVIDERS: PCP Family Medicine; Referring Provider Specialist; Visit Provider Specialist
DX: Z01.818 Encounter for other preprocedural examination (principal); M21.161 Varus deformity, not elsewhere classified, right knee; M25.561 Pain in right knee
CPT/HCPCS: 73700; 93005

== ENCOUNTER → 2025-05-10 | Outpatient (CLI) | payer BC, SELFPAY ==
[2025-05-10 10:29] LABS: Hematocrit 43.1 % (40-54); Hemoglobin 14.6 g/dL (13.0-16.5); Immature Granulocytes Count 0.000 X10^3/uL (0.0-0.0); Mean Corp Hgb Conc 33.9 g/dL (32-36); Mean Corpuscular Volume 85.3 fL (80-94); Mean Platelet Vol. 10.4 fl (6.2-12.0); NRBC Flagged by Analyzer 0 % (0-5); Platelet Count 235 K/mm3 (150-450); RBC Distribution Width CV 12.9 % (11.6-14.6); RBC Distribution Width SD 39.8 fl (35.1-43.9); Red Blood Count 5.05 M/mm3 (4.6-6.2); White Blood Count 3.2 K/mm3 (4.4-11.0)
[2025-05-10 10:50] LABS: Albumin, Serum 4.3 g/dL (3.5-5.0); Anion Gap 9 (5-15); BUN 16 mg/dL (4-19); BUN/Creat Ratio 16.8 RATIO (10-20); Calcium,Total 9.3 mg/dL (7.6-11.0); Carbon Dioxide 26.8 mmol/L (21.0-32.0); Chloride 103 mmol/L (98-108); Glucose 89 mg/dL (70-99); Potassium 4.5 mmol/L (3.3-5.1)
== END | disposition home or self-care (01) ==
LOC: MFPLAB 08:43
PROVIDERS: PCP Family Medicine; Referring Provider Specialist; Visit Provider Specialist
DX: Z01.810 Encounter for preprocedural cardiovascular examination (principal); Z01.818 Encounter for other preprocedural examination; M17.11 Unilateral primary osteoarthritis, right knee; J45.909 Unspecified asthma, uncomplicated; F32.A Depression, unspecified; E78.00 Pure hypercholesterolemia, unspecified
CPT/HCPCS: 36415; 80048; 82040; 85025